=== PATIENT | female | born 1960 | race Hispanic/Latino ===

== ENCOUNTER 2019-01-09 08:11 | Emergency (ER) | payer BC ==
[2019-01-09 09:06] LABS: Urine Blood NEGATIVE (NEG); Urine Glucose NEGATIVE (NEG); Urine Protein NEGATIVE (NEG); Urine Specific Gravity 1.015 (1.005-1.030); Urine pH 5.5 (5.0-7.0)
[2019-01-09 09:19] LABS: Absolute Lymphocytes (CBC) 1.6 K/uL (0.7-4.9); Basophils % 0.6 % (0-1.3); Hematocrit 26.8 % (36.0-45.0); Lymphocytes % 17.3 % (15.3-44.8); MPV 7.6 fL (7.6-11.3); RBC Red Blood Cell Count 3.41 M/uL (3.86-4.86)
--- NOTE | 2019-01-09 09:25 | RAD REPORT ---
EXAM DESCRIPTION: RAD - Chest Single View - 01/09/2019 9:01 am CLINICAL HISTORY: CHEST PAIN Chest pain. COMPARISON: No comparisons FINDINGS: Portable technique limits examination quality. The lungs are grossly clear. The heart is normal in size. No displaced fractures. IMPRESSION: No acute intrathoracic process suspected.
[2019-01-09 09:34] LABS: ALT/SGPT 28 U/L (12-78); AST/SGOT 11 U/L (15-37); Albumin 3.2 g/dL (3.4-5.0); Alkaline Phosphatase 71 U/L (45-117); BUN Blood Urea Nitrogen 27 mg/dL (7-18); Bicarbonate 26 mmol/L (21-32); Bilirubin Direct 0.1 mg/dL (0-0.2); Bilirubin Total 0.5 mg/dL (0.2-1.0); Glucose Level 148 mg/dL (74-106); Magnesium 1.7 mg/dL (1.8-2.4); Protein, Total 7.8 g/dL (6.4-8.2); Sodium Level 140 mmol/L (136-145); Troponin (Emerg Dept Use Only) < 0.02 ng/mL (0.0-0.045)
[2019-01-09] MEDS ORDERED: MORPHINE 4 MG/ML SYR ONE (09:34)
[2019-01-09] MEDS ORDERED: ONDANSETRON 4 MG/2 ML VIAL ONE (09:34)
[2019-01-09 10:03] LABS: Protime INR 0.99
[2019-01-09] MEDS ORDERED: NA CHLORIDE 0.9% 1,000 ML ONE (10:21)
--- NOTE | 2019-01-09 10:34 | RAD REPORT ---
EXAM DESCRIPTION: CT - Chest For Pe Angio - 01/09/2019 10:12 am CLINICAL HISTORY: Chest pain COMPARISON: None. TECHNIQUE: Dynamically enhanced axial 3 mm thick images of the chest were obtained during administra tion of <100> mL Isovue 370 IV contrast. Coronal and oblique reconstruction images were generated and reviewed. Exam utilizes a protocol for optimal evaluation of pulmonary arterial tree. Maximum intensity projections 3D imaging was utilized All CT scans are performed using dose optimization technique as appropriate and may include automated exposure control or mA/KV adjustment according to patient size. FINDINGS: A pulmonary embolus is not seen. A thoracic aortic aneurysm is not noted. A pleural effusion is not seen. A pericardial effusion is not seen. A lung consolidation is not present. Several tiny subpleural lung nodules likely are benign. Small hiatal hernia. Fatty liver IMPRESSION: Negative for a pulmonary embolism.
--- NOTE | 2019-01-09 11:00 | ER ---
Nurse's Notes [facility] Name: Juana Restrepo Age: 58 yrs Sex: Female : 1960 Arrival Date: 01/09/2019 Time: 08:17 Bed 6 Private MD: Diagnosis: Headache;Anemia, unspecified;Chest pain, unspecified Presentation: 01/09 08:30 Presenting complaint: Patient states: i have had a headache for 2 days, today i feel tw2 dizzy and lightheaded and weak, i am having some nausea too. Transition of care: patient was not received from another setting of care. Onset of symptoms was January 09, 2019. Risk Assessment: Do you want to hurt yourself or someone else? Patient reports no desire to harm self or others. Initial Sepsis Screen: Does the patient meet any 2 criteria? No. Patient's initial sepsis screen is negative. Does the patient have a suspected source of infection? No. Patient's initial sepsis screen is negative. Care prior to arrival: None. 08:30 Method Of Arrival: Ambulatory tw2 08:30 Acuity: JAME 3 tw2 Triage Assessment: 08:31 Headache History: The patient has had previous headaches and this one is similar to tw2 previous episodes. General: Appears in no apparent distress. Behavior is calm, cooperative, appropriate for age. Pain: Complains of pain in top of head, forehead, right jew and left jew. Pain: Pain currently is 0 out of 10 on a pain scale. Pain began 2-3 days ago. Also complains of nausea. Neuro: Level of Consciousness is awake, alert, obeys commands. Historical: - Allergies: 08:33 No Known Allergies; tw2 - Home Meds: 08:33 Metformin Oral [Active]; Januvia oral oral [Active]; losartan oral oral [Active]; tw2 - PMHx: 08:33 Diabetes - NIDDM; Anemia; reflux; tw2 - PSHx: 08:33 Tummy tuck; Liposuction; tw2 - Immunization history:: Adult Immunizations. - Social history:: Smoking status: . - Ebola Screening: : No symptoms or risks identified at this time. Screenin:20 Abuse screen: Denies threats or abuse. Nutritional screening: No deficits noted. tw2 Tuberculosis screening: No symptoms or risk factors identified. Fall Risk None identified. Assessment: 08:22 General: Appears in no apparent distress. well groomed, Behavior is calm, cooperative, tw2 appropriate for age. Pain: Complains of pain in left jew and right jew and forehead and top of head. Neuro: Level of Consciousness is awake, alert, obeys commands, Oriented to person, place, time, situation, Reports dizziness, headache weakness. Cardiovascular: Heart tones S1 S2 Patient's skin is warm and dry. Respiratory: Airway is patent Respiratory effort is even, unlabored, Respiratory pattern is regular, symmetrical, Breath sounds are clear bilaterally. GI: Abdomen is flat, Bowel sounds present X 4 quads. Reports nausea. : No signs and/or symptoms were reported regarding the genitourinary system. EENT: No signs and/or symptoms were reported regarding the EENT system. Derm: No signs and/or symptoms reported regarding the dermatologic system. Musculoskeletal: Range of motion: intact in all extremities. 09:09 Reassessment: Patient appears in no apparent distress at this time. No changes from tw2 previously documented assessment. Patient and/or family updated on plan of care and expected duration. Pain level reassessed. Patient is alert, oriented x 3, equal unlabored respirations, skin warm/dry/pink. 10:00 Reassessment: Patient states that the morphine did not help her headache. Notified Albino Mensah NP. Patient was instructed not to get out of bed until CT scan results come back. 11:35 Reassessment: pt given PO water and ICE, pt tolerating PO well at this time. sg Vital Signs: 08:31 BP 139 / 63; Pulse 103; Resp 18; Temp 97.4(TE); Pulse Ox 100% on R/A; Weight 81.65 kg tw2 (R); Height 5 ft. 1 in. (154.94 cm); Pain 0/10; 09:09 BP 113 / 72; Pulse 85; Resp 17; Pulse Ox 100% on R/A; tw2 08:31 Body Mass Index 34.01 (81.65 kg, 154.94 cm) tw2 ED Course: 08:17 Patient arrived in ED. mr 08:20 Marce Robin RN is Primary Nurse. tw2 08:21 Arm band placed on. tw2 08:21 Bed in low position. Call light in reach. Adult w/ patient. tw2 08:22 Daniel Mensah, BK is PHCP. pm1 08:22 Markus Timmons MD is Attending Physician. pm1 08:31 Triage completed. tw2 08:58 XRAY Chest (1 view) In Process Unspecified. EDMS 09:04 Initial lab(s) drawn, by me, sent to lab. Inserted saline lock: 20 gauge in right ms antecubital area, using aseptic technique. Blood collected. 09:06 EKG done, by motorcycle service technician. reviewed by Markus Timmons MD. tc 10:[address] via stretcher. sw 10:13 CT Chest For PE Angio In Process Unspecified. EDMS 12:36 No provider procedures requiring assistance completed. IV discontinued, intact, ss bleeding controlled, No redness/swelling at site. Pressure dressing applied. Administered Medications: 09:35 Drug: Zofran 4 mg Route: IVP; Site: right antecubital; tw2 09:38 Drug: morphine 4 mg Route: IVP; Site: right antecubital; tw2 10:41 Drug: NS 0.9% 1000 ml Route: IV; Rate: 1000 ml; Site: right antecubital; aj1 11:28 Drug: Benadryl 12.5 mg Route: IVP; Site: right antecubital; sg 11:28 Drug: TORadol - Ketorolac 15 mg Route: IVP; Site: right antecubital; sg 11:30 Drug: Reglan 10 mg Route: IVP; Site: right antecubital; sg Outcome: 10:59 Discharge ordered by MD. pm1 12:36 Discharged to home ambulatory. ss 12:36 Condition: improved 12:36 Discharge instructions given to patient, family, Instructed on discharge instructions, follow up and referral plans. medication usage, Demonstrated understanding of instructions, follow-up care, medications, Prescriptions given X 1. 12:37 Patient left the ED. ss Signatures: Dispatcher [employer] EDLA Agustina Liao, RN RN aj1 Puma Andrade, RN RN sg Judie Cosme mr Major, Brittany Mell España, VAMSI RN ss Arminda Cottrell, business proposal rep EKG Ttc Gabi Brady Daniel Mensah, BK STEAM TURBINE OPERATOR pm1 Robin, Marce, RN RN tw2
--- NOTE | 2019-01-09 11:00 | EDPHYS ---
Physician Documentation [facility] Name: Juana Restrepo Age: 58 yrs Sex: Female : 1960 Arrival Date: 01/09/2019 Time: 08:17 Bed 6 Private MD: ED Physician Markus Timmons HPI: 01/09 08:45 This 58 yrs old Female presents to ER via Ambulatory with complaints of pm1 Headache. 08:45 The patient complains of pain to the forehead, left base of the skull and right base of pm1 the skull. The patient describes the headache as aching. Onset: The symptoms/episode began/occurred 2 day(s) ago. Associated signs and symptoms: Pertinent negatives: dizziness, fever, nausea, neck stiffness, rash, vomiting. Severity of symptoms: in the emergency department the pain has resolved. Headache History: The patient has had previous headaches and this one is similar to previous episodes. Patient had liposuction in [place] two days ago and she is concerned that she is anemic. Patient with a history of anemia and is currently taking iron supplements. She feels that the headache that has resolved on arrival to the ER is related to the anemia. She reports chest pain that feels like pulling and shortness of breath that started two days ago with the headache . Historical: - Allergies: 08:33 No Known Allergies; tw2 - Home Meds: 08:33 Metformin Oral [Active]; Januvia oral oral [Active]; losartan oral oral [Active]; tw2 - PMHx: 08:33 Diabetes - NIDDM; Anemia; reflux; tw2 - PSHx: 08:33 Tummy tuck; Liposuction; tw2 - Immunization history:: Adult Immunizations. - Social history:: Smoking status: . - Ebola Screening: : No symptoms or risks identified at this time. ROS: 08:45 Constitutional: Negative for fever, chills, and weight loss, Eyes: Negative for injury, pm1 pain, redness, and discharge, ENT: Negative for injury, pain, and discharge, Neck: Negative for injury, pain, and swelling, Abdomen/GI: Negative for abdominal pain, nausea, vomiting, diarrhea, and constipation. 08:45 Back: Negative for injury and pain, : Negative for injury, bleeding, discharge, and swelling, MS/Extremity: Negative for injury and deformity, Skin: Negative for injury, rash, and discoloration. 08:45 Cardiovascular: Positive for chest pain, Negative for edema, orthopnea, palpitations. 08:45 Respiratory: Positive for shortness of breath, Negative for cough, wheezing. 08:45 Neuro: Positive for headache, Negative for altered mental status, dizziness, numbness, tingling, weakness. Exam: 08:45 Constitutional: This is a well developed, well nourished patient who is awake, alert, pm1 and in no acute distress. Head/Face: Normocephalic, atraumatic. Eyes: Pupils equal round and reactive to light, extra-ocular motions intact. Lids and lashes normal. Conjunctiva and sclera are non-icteric and not injected. Cornea within normal limits. Periorbital areas with no swelling, redness, or edema. ENT: Nares patent. No nasal discharge, no septal abnormalities noted. Tympanic membranes are normal and external auditory canals are clear. Oropharynx with no redness, swelling, or masses, exudates, or evidence of obstruction, uvula midline. Mucous membranes moist. Neck: Trachea midline, no thyromegaly or masses palpated, and no cervical lymphadenopathy. Supple, full range of motion without nuchal rigidity, or vertebral point tenderness. No Meningismus. Chest/axilla: Normal chest wall appearance and motion. Nontender with no deformity. No lesions are appreciated. Cardiovascular: Regular rate and rhythm with a normal S1 and S2. No gallops, murmurs, or rubs. Normal PMI, no JVD. No pulse deficits. Respiratory: Lungs have equal breath sounds bilaterally, clear to auscultation and percussion. No rales, rhonchi or wheezes noted. No increased work of breathing, no retractions or nasal flaring. Abdomen/GI: Soft, non-tender, with normal bowel sounds. No distension or tympany. No guarding or rebound. No evidence of tenderness throughout. Back: No spinal tenderness. No costovertebral tenderness. Full range of motion. Skin: Warm, dry with normal turgor. Normal color with no rashes, no lesions, and no evidence of cellulitis. MS/ Extremity: Pulses equal, no cyanosis. Neurovascular intact. Full, normal range of motion. 08:45 Neuro: Orientation: is normal, Motor: is normal, moves all fours. 08:45 Neuro: Mentation: is normal, Cranial nerves: CN II- XII are normal as tested, pm1 Cerebellar function: normal finger to nose testing, Sensation: is normal, no obvious gross deficits. Vital Signs: 08:31 BP 139 / 63; Pulse 103; Resp 18; Temp 97.4(TE); Pulse Ox 100% on R/A; Weight 81.65 kg tw2 (R); Height 5 ft. 1 in. (154.94 cm); Pain 0/10; 09:09 BP 113 / 72; Pulse 85; Resp 17; Pulse Ox 100% on R/A; tw2 08:31 Body Mass Index 34.01 (81.65 kg, 154.94 cm) tw2 MDM: 08:26 Patient medically screened. pm1 10:58 Data reviewed: vital signs. Data interpreted: Pulse oximetry: on room air is 100 %. pm1 Interpretation: normal. 10:58 Counseling: I had a detailed discussion with the patient and/or guardian regarding: the pm1 historical points, exam findings, and any diagnostic results supporting the discharge/admit diagnosis, lab results, radiology results, the need for outpatient follow up, to return to the emergency department if symptoms worsen or persist or if there are any questions or concerns that arise at home. 01/09 08:39 Order name: Urine Dipstick--Ancillary (enter results); Complete Time: 09:24 bd 01/09 08:41 Order name: Basic Metabolic Panel; Complete Time: 09:56 pm1 01/09 08:41 Order name: CBC with Diff; Complete Time: 09:24 pm1 01/09 08:41 Order name: LFT's; Complete Time: 09:56 pm1 01/09 08:41 Order name: Magnesium; Complete Time: 09:56 pm1 01/09 08:41 Order name: PT-INR; Complete Time: 10:13 pm1 01/09 08:41 Order name: Troponin (emerg Dept Use Only); Complete Time: 09:56 pm1 01/09 08:41 Order name: XRAY Chest (1 view); Complete Time: 09:27 pm1 01/09 08:41 Order name: D-Dimer; Complete Time: 10:13 pm1 01/09 09:56 Order name: CT Chest For PE Angio; Complete Time: 10:41 pm1 01/09 08:41 Order name: EKG; Complete Time: 08:42 pm1 01/09 08:41 Order name: Cardiac monitoring; Complete Time: 08:46 pm1 01/09 08:41 Order name: EKG - Nurse/Tech; Complete Time: 08:55 pm1 01/09 08:41 Order name: IV Saline Lock; Complete Time: 09:04 pm1 01/09 08:41 Order name: Labs collected and sent; Complete Time: 09:04 pm1 01/09 08:41 Order name: O2 Per Protocol; Complete Time: 08:46 pm1 01/09 08:41 Order name: O2 Sat Monitoring; Complete Time: 08:46 pm1 Administered Medications: 09:35 Drug: Zofran 4 mg Route: IVP; Site: right antecubital; tw2 09:38 Drug: morphine 4 mg Route: IVP; Site: right antecubital; tw2 10:41 Drug: NS 0.9% 1000 ml Route: IV; Rate: 1000 ml; Site: right antecubital; aj1 11:28 Drug: Benadryl 12.5 mg Route: IVP; Site: right antecubital; sg 11:28 Drug: TORadol - Ketorolac 15 mg Route: IVP; Site: right antecubital; sg 11:30 Drug: Reglan 10 mg Route: IVP; Site: right antecubital; sg Disposition: 15:52 Co-signature as Attending Physician, Markus Timmons MD. rn Disposition: 01/09/19 10:59 Discharged to Home. Impression: Headache, Anemia, unspecified, Chest pain, unspecified. - Condition is Stable. - Discharge Instructions: Anemia, Nonspecific, Nonspecific Chest Pain, General Headache Without Cause. - Prescriptions for Fiorinal 50- 325-40 mg Oral Capsule - take 1 capsule by ORAL route every 4 hours As needed - not to exceed 6 capsules per day; 20 capsule. - Medication Reconciliation Form, Thank You Letter, Antibiotic Education, Prescription Opioid Use form. - Follow up: Emergency Department; When: As needed; Reason: Worsening of condition. Follow up: Private Physician; When: 2 - 3 days; Reason: Recheck today's complaints, Continuance of care, Re-evaluation by your physician. - Problem is new. - Symptoms have improved. Signatures: Dispatcher [employer] EDAgustina Rios RN RN aj1 Puma Andrade RN RN Markus Mcdaniel MD MD rn Smirch, Shelby, RN RN ss Daniel Mensah, BOTTOMING MACHINE OPERATOR BOTTOMING MACHINE OPERATOR pm1 Marce Robin RN RN tw2 Corrections: (The following items were deleted from the chart) 12:37 10:59 01/09/2019 10:59 Discharged to Home. Impression: Headache; Anemia, unspecified; ss Chest pain, unspecified. Condition is Stable. Forms are Medication Reconciliation Form, Thank You Letter, Antibiotic Education, Prescription Opioid Use. Follow up: Emergency Department; When: As needed; Reason: Worsening of condition. Follow up: Private Physician; When: 2 - 3 days; Reason: Recheck today's complaints, Continuance of care, Re-evaluation by your physician. Problem is new. Symptoms have improved. pm1
[2019-01-09] MEDS ORDERED: DIPHENHYDRAMINE 50 MG/ML VIAL ONE (11:21)
[2019-01-09] MEDS ORDERED: KETOROLAC 30 MG/ML INJ ONE (11:21)
[2019-01-09] MEDS ORDERED: METOCLOPRAMIDE 10 MG/2mL INJ ONE (11:21)
--- NOTE | 2019-01-09 11:38 | EKG ---
Test Date: 2019-01-09 Test Time: 08:54:49 Sausage Tier: NEGRITO MEASUREMENT RESULTS: Intervals: Rate: 84 ID: [id number] QRSD: 80 QT: 364 QTc: 430 [place]: P: 64 ID: [id number] QRS: 26 T: 47 INTERPRETIVE STATEMENTS: Normal sinus rhythm Normal ECG No previous ECG available for comparison Electronically Signed On 01-09-19 11:37:04 CDT by Manuel Dasilva
[2019-01-09 13:09] VITALS: TEMP 97.4; O2SAT 100
[2019-01-09 13:10] VITALS: BP 113/72
== END 2019-01-09 12:37 | disposition home or self-care (01) ==
LOC: ER 08:11
DX: D64.9 Anemia, unspecified (principal); R07.9 Chest pain, unspecified
CPT/HCPCS: 93005; 85025; 80048; 36415; 83735; 85610; 85379; 80076; 81003; 84484; 71275; 71045; 96375; 96374; 99284; Q9967; J2765; J1200; J7030; J2405

== ENCOUNTER 2020-07-02 09:11 | Inpatient (IN) | payer BC, SELFPAY ==
--- NOTE | 2020-07-02 11:53 | RAD REPORT ---
EXAM DESCRIPTION: RAD - Chest Single View - 07/02/2020 10:59 am CLINICAL HISTORY: COVID +, low O2;Cough COMPARISON: December 2008 TECHNIQUE: AP portable chest image was obtained 07/02/2020 10:59 am . FINDINGS: Lung volumes are low. Prominent airspace opacification is present in the lateral right upp er lobe and mid and lower left lung field. Given the provided history this is most likely a mild to m oderate severity bilateral COVID-19 pneumonia. Heart and vasculature are normal. No measurable pleural effusion and no pneumothorax. No acute bony abnormality seen. No acute aortic findings suspected. IMPRESSION: Mild to moderate bilateral COVID-19 pneumonia.
[2020-07-02] MEDS ORDERED: ONDANSETRON 4 MG/2 ML VIAL ONE (12:02)
[2020-07-02] MEDS ORDERED: dexAMETHasone 10 MG/ML VIAL ONE (12:02)
[2020-07-02] MEDS ORDERED: NA CHLORIDE 0.9% 1,000 ML ONE (12:02)
[2020-07-02] MEDS ORDERED: KETOROLAC 30 MG/ML INJ ONE (12:02)
[2020-07-02 12:08] LABS: Absolute Lymphocytes (CBC) 0.8 K/uL (0.7-4.9); Basophils % 0.5 % (0-1.3); Hematocrit 29.3 % (36.0-45.0); Lymphocytes % 18.6 % (15.3-44.8); MPV 7.8 fL (7.6-11.3); RBC Red Blood Cell Count 3.35 M/uL (3.86-4.86)
[2020-07-02 12:22] LABS: Potassium 4.2 mmol/L (3.5-5.1)
[2020-07-02] MEDS ORDERED: MORPHINE 4 MG/ML SYR ONE (13:01)
--- NOTE | 2020-07-02 15:06 | P.HP ---
Certification for Inpatient With expected LOS: >2 Midnights Patient will require the following post-hospital care: None Practitioner: I am a practitioner with admitting privileges, knowledge of patient current condition, hospital course, and medical plan of care. Services: Services provided to patient in accordance with Admission requirements found in Title 42 Section 412.3 of the Code of Federal Regulations Patient History Date of Service: 07/02/20 Reason for admission: COVID 19 disease, resp failure, generalized fatigue. History of Present Illness: 59 y o female pt with hx of COVID 19 disease diagnosed 5 dys ago who came back to the ED for evaluation due to worsening sob and generalized weakness. she had c/o bodyaches and chst discomfort. she denied any diarrhea, fever, chills, rigor, n/v but she feels very poor. CXR done in the ED showed viral pneumonia pattern with patchy opacifications on all lung harevy. she was started on supplemental oxygen and was asked to be admitted on observation for her covid 19 disease status. Allergies No Known Allergies Allergy (Verified 07/02/20 15:23) Home medications list reviewed: Yes - Past Medical/Surgical History Diabetic: Yes Review of Systems General: Weakness, Malaise Eyes: Unremarkable ENT: Unremarkable Respiratory: Cough, Shortness of Breath, Unremarkable Cardiovascular: Unremarkable Gastrointestinal: Unremarkable Musculoskeletal: Unremarkable Integumentary: Unremarkable Neurological: Unremarkable Physical Examination - Physical Exam General: Alert, Oriented x3, Cooperative HEENT: Atraumatic, Normocephalic Neck: Supple Respiratory: Diminished Cardiovascular: Regular rate/rhythm, Normal S1 S2 Gastrointestinal: Soft and benign Neurological: Normal speech, Normal strength at 5/5 x4 extr, Cranial nerves 3-12 intact - Studies Laboratory Data (last 24 hrs) 07/02/20 11:47: Sodium 132 L, Potassium 4.2, BUN 22 H, Creatinine 1.39 H, Glucose 239 H 07/02/20 11:47: WBC 4.50, Hgb 9.8 L, Hct 29.3 L, Plt Count 252 Assessment and Plan - Plan 1. COVID 19 disease- Imaging and clinical state depicts worsening covid 19 disease. we will start dexamethasone and inhalation therapy with duonebs. we will also start Vit C and zinc therapy. we will continue prn tylenol for pain control. 2.Diabetes type 2- we will continue SSI and monitor blood glucose ACHS we will continue carb restricted diet. 3. Elevated D dimer- no evidence of Pulm emboli on CTA pulm. we will continue lovenox for DVT therapy for now. 4.Elevated creatinine- deemed due to covid 19 disease affecting kidney function. we will monitor her renal function and avoid nephrotoxins. 5. Hyponatremia-Mild at 132. we will continue routine monitoring. deemed due to her pulm infection. Discharge Plan: Home - Advance Directives Does patient have a Living Will: No Does patient have a Durable POA for Healthcare: No
--- NOTE | 2020-07-02 15:20 | ER ---
Nurse's Notes [facility] Name: Juana Restrepo Age: 59 yrs Sex: Female : 1960 Arrival Date: 07/02/2020 Time: 09:19 Bed 19 Private MD: Diagnosis: Coronavirus infection, unspecified;Hypoxia Presentation: 07/02 10:15 Chief complaint: Patient states: PERSON, fatigue and low O2 since being diagnosed with ss COVID 2 weeks ago. Coronavirus screen: Client denies travel out of the [place] in the last 14 days. Ebola Screen: Patient denies exposure to infectious person. Patient denies travel to an Ebola-affected area in the 21 days before illness onset. Initial Sepsis Screen: Does the patient meet any 2 criteria? No. Patient's initial sepsis screen is negative. Does the patient have a suspected source of infection? No. Patient's initial sepsis screen is negative. Risk Assessment: Do you want to hurt yourself or someone else? Patient reports no desire to harm self or others. Onset of symptoms was June 21, 2020. 10:15 Method Of Arrival: Wheelchair ss 10:15 Acuity: JAME 3 ss Historical: - Allergies: 10:19 No Known Allergies; ss - PMHx: 10:19 Anemia; Diabetes - NIDDM; reflux; ss - Immunization history:: Adult Immunizations up to date. - Social history:: Smoking status: Patient denies any tobacco usage or history of. Screenin:17 Abuse screen: Denies threats or abuse. Denies injuries from another. Nutritional hb screening: No deficits noted. Tuberculosis screening: No symptoms or risk factors identified. Fall Risk None identified. Assessment: 12:17 General: Appears in no apparent distress. uncomfortable, Behavior is calm, cooperative. hb Pain: Pain currently is 8 out of 10 on a pain scale. Neuro: Level of Consciousness is awake, alert, obeys commands, Oriented to person, place, time, situation. Cardiovascular: Patient's skin is warm and dry. Respiratory: Respiratory effort is even, unlabored, Respiratory pattern is regular, symmetrical. GI: Reports nausea. : No signs and/or symptoms were reported regarding the genitourinary system. EENT: No signs and/or symptoms were reported regarding the EENT system. Derm: Skin is pink, warm \T\ dry. Musculoskeletal: Reports body aches, headache. 13:45 Reassessment: Patient appears in no apparent distress at this time. Patient and/or hb family updated on plan of care and expected duration. Pain level reassessed. Patient is alert, oriented x 3, equal unlabored respirations, skin warm/dry/pink. 14:46 Reassessment: Patient appears in no apparent distress at this time. Patient and/or hb family updated on plan of care and expected duration. Pain level reassessed. Patient is alert, oriented x 3, equal unlabored respirations, skin warm/dry/pink. 15:49 Reassessment: Patient appears in no apparent distress at this time. Patient and/or hb family updated on plan of care and expected duration. Pain level reassessed. Patient is alert, oriented x 3, equal unlabored respirations, skin warm/dry/pink. Vital Signs: 10:15 BP 118 / 69; Pulse 91; Resp 16; Temp 99.2; Pulse Ox 93% on R/A; Weight 90.26 kg; Height ss 5 ft. 0 in. (152.40 cm); Pain 8/10; 12:00 BP 108 / 68; Pulse 94; Resp 17; Pulse Ox 91% on R/A; hb 14:46 BP 103 / 52; Pulse 86; Resp 15; Pulse Ox 85% on R/A; hb 15:47 BP 106 / 55; Pulse 85; Resp 17; Pulse Ox 97% on 2 lpm NC; hb 10:15 Body Mass Index 38.86 (90.26 kg, 152.40 cm) ED Course: 09:19 Patient arrived in ED. mr 10:18 Triage completed. ss 10:19 Arm band placed on left wrist. ss 10:26 Lb Lewis PA is PHCP. jmm 10:26 Markus Timmons MD is Attending Physician. jmm 10:57 XRAY Chest (1 view) In Process Unspecified. EDMS 11:13 Haritha Antoine, VAMSI is Primary Nurse. hb 11:44 Inserted saline lock: 20 gauge in right antecubital area, using aseptic technique. hb Blood collected. 12:17 Patient has correct armband on for positive identification. Bed in low position. Call hb light in reach. 12:51 CBC with Diff Sent. hb 15:15 CT Chest For PE Angio In Process Unspecified. EDMS 15:15 CT Abd/Pelvis - IV Contrast Only In Process Unspecified. EDMS 15:19 Parth Milan MD is Hospitalizing Provider. [facility] 15:50 No provider procedures requiring assistance completed. Patient admitted, IV remains in hb place. Administered Medications: 11:45 Drug: NS 0.9% 1000 ml Route: IV; Rate: 1 bolus; Site: right antecubital; hb 12:45 Follow up: Response: No adverse reaction; IV Status: Completed infusion; IV Intake: hb 1000ml 11:45 Drug: Zofran (Ondansetron) 4 mg Route: IVP; Site: right antecubital; hb 12:20 Follow up: Response: No adverse reaction hb 11:45 Drug: Ketorolac 15 mg Route: IVP; Site: right antecubital; hb 12:45 Follow up: Response: No adverse reaction hb 11:45 Drug: Decadron - Dexamethasone 10 mg Route: IVP; Site: right antecubital; hb 12:45 Follow up: Response: No adverse reaction hb 12:44 Drug: morphine 4 mg Route: IVP; Site: right antecubital; hb 13:39 Follow up: Response: No adverse reaction hb Intake: 12:45 IV: 1000ml; Total: 1000ml. hb Outcome: 15:20 Decision to Hospitalize by Provider. [facility] 15:50 Admitted to Tele accompanied by tech, room 401, with oxygen, with chart, Report called hb to Je AGUSTIN 15:50 Condition: stable 15:50 Instructed on the need for admit, Demonstrated understanding of instructions. 16:11 Patient left the ED. tr6 Signatures: Dispatcher [employer] EDMS Lb Lewis PA PA jmm Rivera, Mary mr Mell Diez, Haritha Ortiz RN, RN RN Arminda Gaston RN RN tr6 Corrections: (The following items were deleted from the chart) 14:55 14:46 BP 103 / 52; Pulse 86bpm; Resp 15bpm; Pulse Ox 86% RA; hb hb
--- NOTE | 2020-07-02 15:20 | EDPHYS ---
Physician Documentation [facility] Name: Juana Restrepo Age: 59 yrs Sex: Female : 1960 Arrival Date: 07/02/2020 Time: 09:19 Bed 19 Private MD: ED Physician Markus Timmons HPI: 07/02 10:27 This 59 yrs old Female presents to ER via Wheelchair with complaints of jmm COVID+, Low O2. 10:27 The patient or guardian reports cough. Onset: The symptoms/episode began/occurred jmm gradually, 4 day(s) ago. Modifying factors: The symptoms are alleviated by nothing. the symptoms are aggravated by nothing. Associated signs and symptoms: Pertinent positives: cough, shortness of breath, body aches. This is a 59 year old female with a history of anemia, DM that presents to the ED with complaints of cough, shortness of breath, body aches beginning approx 4 days ago. States she is feeling more short of breath. . Historical: - Allergies: 10:19 No Known Allergies; ss - PMHx: 10:19 Anemia; Diabetes - NIDDM; reflux; ss - Immunization history:: Adult Immunizations up to date. - Social history:: Smoking status: Patient denies any tobacco usage or history of. ROS: 10:27 Constitutional: Positive for body aches, fever. jmm 10:27 Cardiovascular: Positive for 10:27 Respiratory: Positive for cough, shortness of breath. 10:27 Abdomen/GI: Positive for abdominal pain, nausea, vomiting, diarrhea. 10:27 All other systems are negative. Exam: 10:27 Constitutional: This is a well developed, well nourished patient who is awake, alert, jmm and in no acute distress. Head/Face: atraumatic. Eyes: EOMI, no conjunctival erythema appreciated ENT: Moist Mucus Membranes Neck: Trachea midline, Supple Chest/axilla: Normal chest wall appearance and motion. Cardiovascular: Regular rate and rhythm. No edema appreciated Respiratory: Normal respirations, no respiratory distress appreciated Abdomen/GI: Non distended, soft Back: Normal ROM Skin: General appearance color normal MS/ Extremity: Moves all extremities, no obvious deformities appreciated, no edema noted to the lower extremities Neuro: Awake and alert, normal gait Psych: Behavior is normal, Mood is normal, Patient is cooperative and pleasant Vital Signs: 10:15 BP 118 / 69; Pulse 91; Resp 16; Temp 99.2; Pulse Ox 93% on R/A; Weight 90.26 kg; Height ss 5 ft. 0 in. (152.40 cm); Pain 8/10; 12:00 BP 108 / 68; Pulse 94; Resp 17; Pulse Ox 91% on R/A; hb 14:46 BP 103 / 52; Pulse 86; Resp 15; Pulse Ox 85% on R/A; hb 15:47 BP 106 / 55; Pulse 85; Resp 17; Pulse Ox 97% on 2 lpm NC; hb 10:15 Body Mass Index 38.86 (90.26 kg, 152.40 cm) ss MDM: 11:25 Patient medically screened. [facility] 15:18 Data reviewed: vital signs, nurses notes. Counseling: I had a detailed discussion with charlene the patient and/or guardian regarding: the historical points, exam findings, and any diagnostic results supporting the discharge/admit diagnosis, lab results, radiology results, the need for further work-up and treatment in the hospital. ED course: I discussed the patient with Dr. Porter whom accepted the patient for admission. . 07/02 11:37 Order name: CBC with Diff [facility] 07/02 11:37 Order name: BMP; Complete Time: 12:27 [facility] 07/02 11:37 Order name: CBC with Automated Diff; Complete Time: 12:22 [facility] 07/02 13:23 Order name: D-Dimer; Complete Time: 14:49 [facility] 07/02 15:10 Order name: Basic Metabolic Panel [facility] 07/02 15:10 Order name: Basic Metabolic Panel [facility] 07/02 10:26 Order name: XRAY Chest (1 view); Complete Time: 12:05 07/02 14:50 Order name: CT Chest For PE Angio; Complete Time: 15:43 [facility] 07/02 14:50 Order name: CT Abd/Pelvis - IV Contrast Only; Complete Time: 15:43 [facility] 07/02 15:10 Order name: CBC with Automated Diff [facility] 07/02 15:10 Order name: CBC with Automated Diff [facility] 07/02 11:37 Order name: Saline Lock; Complete Time: 12:17 [facility] 07/02 15:10 Order name: Consistent Carb (ADA) 2000 Arvind EDNY Administered Medications: 11:45 Drug: NS 0.9% 1000 ml Route: IV; Rate: 1 bolus; Site: right antecubital; hb 12:45 Follow up: Response: No adverse reaction; IV Status: Completed infusion; IV Intake: hb 1000ml 11:45 Drug: Zofran (Ondansetron) 4 mg Route: IVP; Site: right antecubital; hb 12:20 Follow up: Response: No adverse reaction hb 11:45 Drug: Ketorolac 15 mg Route: IVP; Site: right antecubital; hb 12:45 Follow up: Response: No adverse reaction hb 11:45 Drug: Decadron - Dexamethasone 10 mg Route: IVP; Site: right antecubital; hb 12:45 Follow up: Response: No adverse reaction hb 12:44 Drug: morphine 4 mg Route: IVP; Site: right antecubital; hb 13:39 Follow up: Response: No adverse reaction hb Disposition: 17:23 Co-signature as Attending Physician, Markus Timmons MD. rn Disposition: 07/02/20 15:20 Hospitalization ordered by Parth Milan for Observation. Preliminary diagnosis are Coronavirus infection, unspecified, Hypoxia. - Bed requested for Telemetry/MedSurg (observation). - Status is Observation. tr6 - Condition is Stable. - Problem is new. - Symptoms are unchanged. Signatures: Dispatcher [employer] EDNY Lb Lewis PA PA [facility] Markus Timmons MD MD rn Smirch, Shelby, RN RN Haritha Antoine RN RN Je Diaz RN RN [facility] Arminda Gaston, RN RN tr6 Corrections: (The following items were deleted from the chart) 15:24 15:20 Hospitalization Ordered by Parth Milan MD for Observation. Preliminary ja1 diagnosis is Coronavirus infection, unspecified; Hypoxia. Bed requested for Telemetry/MedSurg (observation). Status is Observation. Condition is Stable. Problem is new. Symptoms are unchanged. charlene 16:11 15:24 07/02/2020 15:20 Hospitalization Ordered by Parth Milan MD for Observation. tr6 Preliminary diagnosis is Coronavirus infection, unspecified; Hypoxia. Bed requested for Telemetry/MedSurg (observation). Status is Observation. Condition is Stable. Problem is new. Symptoms are unchanged. ja1
--- NOTE | 2020-07-02 15:39 | RAD REPORT ---
EXAM DESCRIPTION: CT - Chest For Pe Angio - 07/02/2020 3:15 pm CLINICAL HISTORY: Chest pain. shortness of breath COMPARISON: Chest For Pe Angio dated 01/09/2019 TECHNIQUE: CT angiogram of the pulmonary arteries was performed with MIP. All CT scans are performed using dose optimization technique as appropriate and may include automated exposure control or mA/KV adjustment according to patient size. FINDINGS: No evidence of pulmonary thromboembolism. No acute aortic finding demonstrated. Extensive interstitial and alveolar lung opacities are present bilaterally, greatest in the upper lob es, likely representing pneumonia. No significant pericardial or pleural fluid. No concerning bony finding. Moderate axial hiatal hernia. IMPRESSION: No evidence of pulmonary thromboembolism. Extensive interstitial and alveolar lung opacities bilaterally compatible with COVID-19 infection.
--- NOTE | 2020-07-02 15:41 | RAD REPORT ---
EXAM DESCRIPTION: CTAbdomen Pelvis W Contrast - 07/02/2020 3:15 pm CLINICAL HISTORY: Abdominal pain. abdominal pain, flank pain COMPARISON: No comparisons TECHNIQUE: Biphasic CT imaging of the abdomen and pelvis was performed with 100 ml non-ionic IV cont rast. All CT scans are performed using dose optimization technique as appropriate and may include automated exposure control or mA/KV adjustment according to patient size. FINDINGS: Mild moderate bibasilar lung opacities are present. Diffuse fatty liver is seen. Moderate axial hiatal hernia. The spleen, pancreas, adrenal glands are w ithin normal limits. Nonobstructing bilateral renal calculi. No bowel obstruction, free air, free fluid or abscess. Moderate stool is retained in the colon. The a ppendix is normal. No evidence of significant lymphadenopathy. No suspicious bony findings. IMPRESSION: Bilateral nephrolithiasis without hydronephrosis. Diffuse fatty liver. Moderate hiatal hernia.
[2020-07-02] MEDS: NA CHLORIDE 0.9% 1,000 ML IV SCH (16:00)
[2020-07-02] MEDS: INSULIN -REGULAR HUMAN 50 UNIT/0.5 ML ML SQ SCH ×2 (16:30→21:31)
[2020-07-02] MEDS: IPRATROPIUM BROM 0.5MG/2.5ML NEB SCH (20:10)
[2020-07-02] MEDS: ACETAMINOPHEN 500 MG TAB PO PRN (21:48)
[2020-07-03] MEDS ORDERED: HYDROCODONE/APAP 5/325 MG TAB PO ONE (00:49)
[2020-07-03] MEDS: IPRATROPIUM BROM 0.5MG/2.5ML NEB SCH ×4 (01:40→19:40)
[2020-07-03 05:17] LABS: Absolute Lymphocytes (CBC) 1.1 K/uL (0.7-4.9); Basophils % 1.3 % (0-1.3); Hematocrit 28.6 % (36.0-45.0); Lymphocytes % 25.2 % (15.3-44.8); MPV 7.8 fL (7.6-11.3); Potassium 4.8 mmol/L (3.5-5.1); RBC Red Blood Cell Count 3.25 M/uL (3.86-4.86)
[2020-07-03] MEDS: NA CHLORIDE 0.9% 1,000 ML IV SCH ×4 (06:44→22:00)
[2020-07-03] MEDS: ALBUTEROL 2.5 MG/3 ML NEB SOL NEB PRN ×2 (07:35→13:48)
[2020-07-03] MEDS: ZINC SULFATE 220 MG CAP PO SCH (07:51)
[2020-07-03] MEDS: INSULIN -REGULAR HUMAN 50 UNIT/0.5 ML ML SQ SCH ×4 (07:55→20:38)
[2020-07-03] MEDS ORDERED: ENOXAPARIN 40 MG/0.4 ML SQ SCH (09:00)
[2020-07-03] MEDS ORDERED: dexAMETHasone 10 MG/ML VIAL IV SCH (09:00)
[2020-07-03] MEDS ORDERED: ASCORBIC ACID 500 MG TABLET PO SCH (09:00)
[2020-07-03] MEDS ORDERED: HYDROCODONE/APAP 10/325 TAB PO PRN (10:12)
[2020-07-03] MEDS: LORAZEPAM 0.5 MG TABLET PO PRN ×2 (10:39→18:43)
[2020-07-04] MEDS ORDERED: LORazepam 2 MG/ML VIAL IV ONE ×2 (00:04→01:34)
[2020-07-04] MEDS: LORazepam 2 MG/ML VIAL ONE ×2 (00:25→03:30)
[2020-07-04] MEDS ORDERED: BENZONATATE 100 MG CAP PO PRN (00:37)
[2020-07-04] MEDS ORDERED: MORPHINE 2 MG/ML SYR IV PRN (00:37)
[2020-07-04] MEDS ORDERED: MELATONIN 5 MG TABLET PO PRN (00:37)
[2020-07-04] MEDS ORDERED: NA CHLORIDE 0.9% 250 ML IV PRN (02:23)
[2020-07-04] MEDS ORDERED: HALOPERIDOL LACT 5 MG/ML INJ IV PRN (02:23)
[2020-07-04] MEDS ORDERED: MIDAZOLAM HCL 2 MG/2 ML INJ IV PRN (02:23)
[2020-07-04] MEDS ORDERED: RSI MEDICATION KIT IV ONE (02:30)
[2020-07-04] MEDS ORDERED: NA CHLORIDE 0.9% 1,000 ML ONE (02:33)
[2020-07-04] MEDS ORDERED: propofoL 1,000 MG/100 ML VIAL IV ONE (02:34)
[2020-07-04] MEDS ORDERED: MIDAZOLAM HCL 2 MG/2 ML INJ ONE (02:47)
[2020-07-04 03:00] LABS: Absolute Lymphocytes (CBC) 1.1 K/uL (0.7-4.9); Basophils % 0.8 % (0-1.3); Hematocrit 28.9 % (36.0-45.0); Lymphocytes % 11.4 % (15.3-44.8); MPV 9.1 fL (7.6-11.3)
[2020-07-04] MEDS: IPRATROPIUM BROM 0.5MG/2.5ML NEB SCH ×2 (03:00→07:40)
[2020-07-04 03:13] LABS: Albumin 2.4 g/dL (3.4-5.0); Bilirubin Total 0.2 mg/dL (0.2-1.0); Ferritin 534.7 ng/mL (8-388); Potassium 4.6 mmol/L (3.5-5.1); Protein, Total 6.8 g/dL (6.4-8.2)
[2020-07-04] MEDS: FENTANYL CITR 100 MCG/2 ML IV PRN ×2 (03:30→07:46)
[2020-07-04 04:09] LABS: Blood Morphology Comment NOT SEEN (NOT SEEN); Platelet Estimate ADEQ
[2020-07-04 04:14] LABS: Arterial Blood Carboxyhemoglob 0.9 % (0-1.5); Blood Gas Oxyhemoglobin 69.8 % (94-97); Blood O2 Saturation 71.2 % (92-98.5)
[2020-07-04 04:18] LABS: Arterial Blood Carboxyhemoglob 0.9 % (0-1.5); Blood Gas Oxyhemoglobin 76.4 % (94-97); Blood O2 Saturation 77.8 % (92-98.5)
[2020-07-04] MEDS: propofoL 1,000 MG/100 ML VIAL IV PRN ×6 (05:09→23:39)
[2020-07-04] MEDS ORDERED: LORazepam 2 MG/ML VIAL ONE (05:54)
[2020-07-04] MEDS ORDERED: CISATRACURIUM BESYLATE 40 MG in NA CHLORIDE 0.9% 80 ML IV PRN (05:57)
[2020-07-04] MEDS ORDERED: CISATRACURIUM INJECTION 2 MG/ML (10 ML Vial) IV ONE ×2 (06:15→06:21)
[2020-07-04] MEDS ORDERED: NA CHLORIDE 0.9% 100 ML ONE (06:22)
[2020-07-04] MEDS: INSULIN -REGULAR HUMAN 50 UNIT/0.5 ML ML SQ SCH ×4 (07:30→21:14)
[2020-07-04] MEDS ORDERED: METHYLPREDNISOLONE 125 MG INJ IV SCH (08:07)
[2020-07-04] MEDS ORDERED: GLUCAGON 1 MG/VIAL IM PRN (08:12)
[2020-07-04] MEDS ORDERED: D50W 25 GM/50 ML SYRINGE IV PRN (08:12)
--- NOTE | 2020-07-04 08:14 | P.CNS ---
Date of Consult: 07/04/20 Reason for Consult: Respiratory failure Chief Complaint: COVID 19 disease, resp failure, generalized fatigue. History of Present Illness: Patient is 59 years of age and was diagnosed with tian virus about 5 days ago presented with acute respiratory failure was intubated to yesterday as bilateral complete opacification of her lungs currently very hypoxic on propofol not cooperative with treatment up on the floor Allergies No Known Allergies Allergy (Verified 07/02/20 15:23) Home Medications: Escitalopram [Lexapro] 10 mg PO DAILY 07/02/20 Losartan Potassium 100 mg PO DAILY 07/02/20 Phentermine HCl 37.5 mg PO DAILY 07/02/20 Simvastatin 20 mg PO DAILY 07/02/20 Topiramate [Topamax] 25 mg PO DAILY 07/02/20 - Past Medical/Surgical History Diabetic: Yes -: GERD -: DM -: ANEMIA - Social History Alcohol use: Yes CD- Drugs: No Caffeine use: No Place of Residence: Home Review of Systems is unable to be obtained Physical Examination Temp Pulse Resp BP Pulse Ox 97.2 F 93 H 30 H 100/55 L 70 L 07/03/20 20:00 07/04/20 06:45 07/04/20 07:46 07/04/20 06:45 07/04/20 07:46 - Problems (1) Acute respiratory failure due to severe acute respiratory syndrome coronavirus 2 (SARS-CoV-2) infection Current Visit: Yes Status: Acute Plan: Patient is 59 years of age admitted with acute respiratory failure from tian virus she has extensive bilateral opacification recommend a very high doses of steroids multi vitamin supplementation full-dose anticoagulation add aspirin ventilator has been adjusted patient is on assist-control change to assist- control of 20 and peep of 15 discuss with the nursing staff all her labs CT scans reviewed
[2020-07-04] MEDS: ACETAMINOPHEN 500 MG TAB PO PRN (08:39)
[2020-07-04] MEDS: ASCORBIC ACID 500 MG TABLET PO SCH ×3 (08:40→20:53)
[2020-07-04] MEDS: VITAMIN D 1000 UNIT TAB PO SCH (08:40)
[2020-07-04] MEDS: ZINC SULFATE 220 MG CAP PO SCH (08:40)
[2020-07-04] MEDS: THIAMINE 200 MG/2 ML INJ IVP SCH ×2 (08:41→20:52)
[2020-07-04] MEDS: ASPIRIN EC 81 MG TAB PO SCH (08:42)
[2020-07-04] MEDS: FAMOTIDINE 20 MG/2 ML VIAL IV SCH ×2 (08:42→20:52)
[2020-07-04] MEDS: ENOXAPARIN 100 MG/ML SYR SQ SCH ×2 (08:42→20:53)
[2020-07-04] MEDS: Remdesivir 200 MG in NA CHLORIDE 0.9% 250 ML IV ONE ×2 (08:44→09:08)
[2020-07-04] MEDS ORDERED: ZINC SULFATE 220 MG CAP PO SCH (09:00)
[2020-07-04] MEDS ORDERED: FAMOTIDINE 20 MG TAB PO SCH (09:00)
[2020-07-04] MEDS ORDERED: THIAMINE HCL 100 MG TABLET PO SCH (09:00)
--- NOTE | 2020-07-04 09:04 | P.PN ---
Subjective Date of Service: 07/03/20 Had a long talk with patient. She is nervous about wearing the BiPAP as she is claustrophobic. I did encourage her to try to use it. We do not have any additional masks to assist her with her claustrophobia. She did get the vaccine 3 weeks ago. She just got the 1st dose. Over the last week she has been getting sick but she has been trying to treat herself with her 's help at home. She does not really want be on the ventilator but she does say if her condition worsens she is agreeable. Review of Systems 10-point ROS is otherwise unremarkable Physical Examination - Vital Signs Temperature: 102.7 F Blood Pressure: 100/55 Pulse: 93 Respirations: 30 Pulse Ox (%): 70 - Physical Exam General: Alert, In no apparent distress, Oriented x3 Respiratory: Diminished, Crackles/rales, Expiratory wheezes Cardiovascular: Regular rate/rhythm, Normal S1 S2, No murmurs Gastrointestinal: Normal bowel sounds, Soft and benign, Non-distended, No tenderness Musculoskeletal: No clubbing, No swelling, No tenderness Neurological: Normal strength at 5/5 x4 extr, Sensation intact, Cranial nerves 3-12 intact - Studies Medications List Reviewed: Yes Assessment & Plan - Problems (Diagnosis) (1) Acute respiratory failure due to severe acute respiratory syndrome coronavirus 2 (SARS-CoV-2) infection Current Visit: Yes Status: Acute (2) DM2 (diabetes mellitus, type 2) Current Visit: Yes Status: Acute - Plan 1. Continue with IV steroids; will start antiviral therapy 2. Monitor inflammatory markers 3. Repeat chest x-ray if symptoms are progressively worsening 4. O2 per protocol 5. Pulmonary consultation 6. Continue with albuterol inhaler therapy; also supportive care 7. Monitor LFTs 8. GI and DVT prophylaxis Discharge Plan: Home Plan to discharge in: Greater than 2 days - Advance Directives Does patient have a Living Will: No Does patient have a Durable POA for Healthcare: No - Code Status/Comfort Care Code Status Assessed: Yes Code Status: Full Code Critical Care: No Time Spent Managing PTS Care (In Minutes): 45
[2020-07-04] MEDS: CISATRACURIUM BESYLATE 80 MG in NA CHLORIDE 0.9% 160 ML IV PRN ×4 (09:08→23:39)
[2020-07-04] MEDS: INSULIN 70/30 100 UNITS/ML SQ SCH ×2 (09:12→17:20)
[2020-07-04 09:37] LABS: Arterial Blood Carboxyhemoglob 0.9 % (0-1.5); Blood Gas Oxyhemoglobin 76.4 % (94-97)
--- NOTE | 2020-07-04 11:08 | RAD REPORT ---
EXAM DESCRIPTION: RAD - Chest Single View - 07/04/2020 3:03 am CLINICAL HISTORY: Endotracheal tube placement COMPARISON: None. TECHNIQUE: Chest 1 View AP FINDINGS: Trachea midline. Cardiac silhouette obscured by surrounding opacities. Marked dense diffuse bilateral lung opacities. Bilateral pleural effusions cannot be ruled out. No pneumothorax is grossly seen. No fracture. ETT tip in expected location of distal trachea. NGT courses towards left upper abdomen with tip not imaged. IMPRESSION: 1. Marked dense diffuse bilateral lung opacities. Causes include pulmonary edema, subsegmental atelectasis, scar/fibrosis, atypical infection, drug miroslava ction, pulmonary hemorrhage, ARDS, hypersensitivity pneumonitis, and other etiologies. 2. ETT and NGT in place. Electronically signed by: Gaston Rodriguez MD 07/04/2020 3:22 AM CDT Due to temporary technical issues with the PACS/Fluency reporting system, reports are being signed by the in house radiologist without review as a courtesy to ensure prompt reporting. The interpreting r adiologist is fully responsible for the content of the report.
[2020-07-04] MEDS: NA CHLORIDE 0.9% IV SCH ×4 (11:13→23:23)
[2020-07-04] MEDS: IVERMECTIN 3 MG TABLET PO SCH (11:13)
[2020-07-04] MEDS: METHYLPRED NA SUC IV SCH ×4 (11:13→23:23)
[2020-07-04 11:41] LABS: Basophils % 0.9 % (0-1.3); Hematocrit 28.2 % (36.0-45.0); Lymphocytes % 12.2 % (15.3-44.8); MPV 7.8 fL (7.6-11.3); RBC Red Blood Cell Count 3.18 M/uL (3.86-4.86)
[2020-07-04 11:59] LABS: Magnesium 1.9 mg/dL (1.8-2.4); Potassium 4.5 mmol/L (3.5-5.1)
[2020-07-04] MEDS ORDERED: SUCCINYLCHOLINE 20 MG/ML (10 ML) IV ONE (13:52)
[2020-07-04] MEDS ORDERED: ETOMIDATE 20 MG/10 ML VIAL IV ONE (13:52)
[2020-07-04] MEDS ORDERED: VANCOMYCIN 1.25 GM in NA CHLORIDE 0.9% 250 ML IVPB SCH (15:00)
[2020-07-04] MEDS ORDERED: D50W 25 GM/50 ML VIAL IV PRN (15:00)
[2020-07-04] MEDS: VANCOMYCIN 1.75 GM in NA CHLORIDE 0.9% 500 ML IVPB SCH (16:30)
[2020-07-04] MEDS: PIPER/TAZO/NS 3.375gm 3.375 GM/100 ML BAG IVPB SCH (17:21)
[2020-07-04 19:12] LABS: Urine Appearance CLOUDY (Clear); Urine Bilirubin NEGATIVE (Negataive); Urine Blood 1+ (Negative); Urine Color YELLOW (Yellow); Urine Glucose 3+ (Negative); Urine Protein 1+ (Negative); Urine Specific Gravity 1.015 (1.005-1.030); Urine Urobilinogen 0.2 mg/dL (0.2-1.0); Urine pH 5.5 (5.0-7.0)
[2020-07-04 19:34] LABS: Urine Bacteria <20 /HPF (<20)
[2020-07-04 19:36] LABS: Urine Amorphous Sediment 3+ /HPF (NONE SEEN); Urine Mucus 3+ /HPF (NONE SEEN); Urine Urothelial Cells <5 /HPF (NONE SEEN)
[2020-07-04] MEDS: ATORVASTATIN 40 MG TAB PO SCH (20:53)
[2020-07-05] MEDS: PIPER/TAZO/NS 3.375gm 3.375 GM/100 ML BAG IVPB SCH ×3 (00:23→17:33)
[2020-07-05] MEDS: propofoL 1,000 MG/100 ML VIAL IV PRN ×4 (02:57→18:09)
[2020-07-05] MEDS: CISATRACURIUM BESYLATE 80 MG in NA CHLORIDE 0.9% 160 ML IV PRN ×3 (03:51→17:36)
[2020-07-05] MEDS: METHYLPRED NA SUC IV SCH ×3 (05:19→18:09)
[2020-07-05] MEDS: NA CHLORIDE 0.9% IV SCH ×3 (05:19→18:09)
[2020-07-05 06:21] LABS: Arterial Blood Carboxyhemoglob 0.8 % (0-1.5); Blood Gas Oxyhemoglobin 94.4 % (94-97); Blood O2 Saturation 96.5 % (92-98.5)
[2020-07-05 08:15] LABS: Absolute Lymphocytes (CBC) 0.9 K/uL (0.7-4.9); Basophils % 0.4 % (0-1.3); Hematocrit 27.6 % (36.0-45.0); Lymphocytes % 8.4 % (15.3-44.8); MPV 7.7 fL (7.6-11.3); RBC Red Blood Cell Count 3.07 M/uL (3.86-4.86)
[2020-07-05 08:30] LABS: Protime INR 1.12
--- NOTE | 2020-07-05 08:35 | RAD REPORT ---
EXAM DESCRIPTION: Abhilash Single View07/05/2020 6:00 am CLINICAL HISTORY: Shortness of breath COMPARISON: July 04, 2020 FINDINGS: Tip of an endotracheal tube at the level of the top of the aortic arch. NG tube in place. Mild improvement in extensive bilateral pulmonary opacities. IMPRESSION: Mild improvement in an extensive bilateral pneumonia
[2020-07-05] MEDS: INSULIN 70/30 100 UNITS/ML SQ SCH ×2 (08:38→17:17)
[2020-07-05] MEDS: Remdesivir 100 MG in NA CHLORIDE 0.9% 250 ML IV SCH (08:38)
[2020-07-05 09:05] LABS: Albumin 1.9 g/dL (3.4-5.0); Bilirubin Direct 0.2 mg/dL (0-0.2); Bilirubin Total 0.4 mg/dL (0.2-1.0); Ferritin 725.4 ng/mL (8-388); Phosphorus 3.3 mg/dL (2.5-4.9); Protein, Total 6.8 g/dL (6.4-8.2)
[2020-07-05] MEDS: INSULIN -REGULAR HUMAN 50 UNIT/0.5 ML ML SQ SCH ×3 (09:05→17:17)
[2020-07-05] MEDS: VITAMIN D 1000 UNIT TAB PO SCH (09:05)
[2020-07-05] MEDS: ASPIRIN EC 81 MG TAB PO SCH (09:05)
[2020-07-05 09:07] LABS: Magnesium 2.1 mg/dL (1.8-2.4); Potassium 5.2 mmol/L (3.5-5.1)
[2020-07-05] MEDS: ASCORBIC ACID 500 MG TABLET PO SCH ×3 (09:07→21:12)
[2020-07-05] MEDS: FAMOTIDINE 20 MG/2 ML VIAL IV SCH ×2 (09:12→21:12)
[2020-07-05] MEDS: ENOXAPARIN 100 MG/ML SYR SQ SCH ×2 (09:12→21:11)
[2020-07-05] MEDS: THIAMINE 200 MG/2 ML INJ IVP SCH ×2 (09:13→21:12)
[2020-07-05] MEDS: ZINC SULFATE 220 MG CAP PO SCH (09:13)
--- NOTE | 2020-07-05 11:26 | P.PN ---
Subjective Date of Service: 07/05/20 Chief Complaint: COVID 19 disease, resp failure, generalized fatigue. Oxygen requirements declining minimal improvement on the chest x-rays today as diffuse bilateral infiltrate Review of Systems is unable to be obtained Physical Examination - Vital Signs Temperature: 97.5 F Blood Pressure: 86/53 Pulse: 67 Respirations: 30 Pulse Ox (%): 96 - Studies Medications List Reviewed: Yes Assessment & Plan - Problems (Diagnosis) (1) Acute respiratory failure due to severe acute respiratory syndrome coronavirus 2 (SARS-CoV-2) infection Current Visit: Yes Status: Acute Plan: Respiratory failure. Continue titrating oxygen level down blood gases showing hypercapnia white count normal patient is on Zosyn while hyperkalemia continue to monitor chest x-rays lab work all reviewed Plan to discharge in: Greater than 2 days
--- NOTE | 2020-07-05 11:36 | P.PN ---
Subjective Date of Service: 07/05/20 Chief Complaint: COVID 19 disease, resp failure, generalized fatigue. Physical Examination - Vital Signs Temperature: 97.5 F Blood Pressure: 86/53 Pulse: 67 Respirations: 30 Pulse Ox (%): 96 - Studies Medications List Reviewed: Yes Assessment & Plan - Problems (Diagnosis) (1) Acute respiratory failure due to severe acute respiratory syndrome coronavirus 2 (SARS-CoV-2) infection Current Visit: Yes Status: Acute Plan: Patient is 59 years of age admitted with acute respiratory failure from tian virus she has extensive bilateral opacification recommend a very high doses of steroids multi vitamin supplementation full-dose anticoagulation add aspirin ventilator has been adjusted patient is on assist-control change to assist- control of 20 and peep of 15 discuss with the nursing staff all her labs CT scans reviewed
[2020-07-05 14:46] LABS: Arterial Blood Carboxyhemoglob 1.1 % (0-1.5); Blood O2 Saturation 94.6 % (92-98.5)
[2020-07-05] MEDS: GLUCERNA 1.5 CAL 1,000 ML BOT RTH SCH (16:40)
[2020-07-05] MEDS ORDERED: GLUCAGON 1 MG/VIAL IM PRN (18:47)
[2020-07-05] MEDS ORDERED: D50W 25 GM/50 ML VIAL IV PRN (18:57)
[2020-07-05] MEDS: ATORVASTATIN 40 MG TAB PO SCH (21:12)
[2020-07-06] MEDS: NA CHLORIDE 0.9% IV SCH ×2 (00:04→05:52)
[2020-07-06] MEDS: METHYLPRED NA SUC IV SCH ×2 (00:04→05:52)
[2020-07-06] MEDS: PIPER/TAZO/NS 3.375gm 3.375 GM/100 ML BAG IVPB SCH ×2 (00:04→08:32)
[2020-07-06] MEDS: INSULIN -REGULAR HUMAN 50 UNIT/0.5 ML ML SQ SCH ×5 (00:05→23:43)
[2020-07-06] MEDS: propofoL 1,000 MG/100 ML VIAL IV PRN ×5 (00:48→22:03)
[2020-07-06] MEDS: CISATRACURIUM BESYLATE 80 MG in NA CHLORIDE 0.9% 160 ML IV PRN ×2 (02:27→15:01)
[2020-07-06] MEDS: VANCOMYCIN 1.75 GM in NA CHLORIDE 0.9% 500 ML IVPB SCH (04:19)
[2020-07-06 05:59] LABS: Absolute Lymphocytes (CBC) 0.5 K/uL (0.7-4.9); Basophils % 0.5 % (0-1.3); Hematocrit 24.4 % (36.0-45.0); Lymphocytes % 19.1 % (15.3-44.8); RBC Red Blood Cell Count 2.77 M/uL (3.86-4.86)
[2020-07-06 06:16] LABS: Arterial Blood Carboxyhemoglob 0.9 % (0-1.5); Blood Gas Oxyhemoglobin 94.4 % (94-97); Blood O2 Saturation 96.7 % (92-98.5)
[2020-07-06 06:23] LABS: Albumin 1.8 g/dL (3.4-5.0); Bilirubin Direct 0.3 mg/dL (0-0.2); Bilirubin Total 0.5 mg/dL (0.2-1.0); Magnesium 2.3 mg/dL (1.8-2.4); Potassium 4.1 mmol/L (3.5-5.1); Protein, Total 6.2 g/dL (6.4-8.2)
[2020-07-06] MEDS: INSULIN 70/30 100 UNITS/ML SQ SCH ×2 (08:18→16:34)
[2020-07-06] MEDS: THIAMINE 200 MG/2 ML INJ IVP SCH ×2 (08:32→20:08)
[2020-07-06] MEDS: ASPIRIN EC 81 MG TAB PO SCH (08:32)
[2020-07-06] MEDS: FAMOTIDINE 20 MG/2 ML VIAL IV SCH (08:32)
[2020-07-06] MEDS: ENOXAPARIN 100 MG/ML SYR SQ SCH (08:32)
[2020-07-06] MEDS: ZINC SULFATE 220 MG CAP PO SCH (08:33)
[2020-07-06] MEDS: VITAMIN D 1000 UNIT TAB PO SCH (08:33)
[2020-07-06] MEDS: IVERMECTIN 3 MG TABLET PO SCH (08:33)
[2020-07-06] MEDS: ASCORBIC ACID 500 MG TABLET PO SCH ×3 (08:33→20:08)
[2020-07-06] MEDS ORDERED: NA CHLORIDE 0.9% 100 ML ONE (09:07)
--- NOTE | 2020-07-06 09:24 | P.PN ---
Subjective Date of Service: 07/06/20 (TV) Chief Complaint: COVID 19 disease, resp failure, generalized fatigue. Condition stable. NC Physical Examination - Vital Signs Temperature: 97.3 F Blood Pressure: 137/76 Pulse: 84 Respirations: 30 Pulse Ox (%): 94 - Studies Medications List Reviewed: Yes Assessment & Plan - Problems (Diagnosis) (1) Acute respiratory failure due to severe acute respiratory syndrome coronavirus 2 (SARS-CoV-2) infection Current Visit: Yes Status: Acute Plan: CXRY Diffuse ILD. ET satisfactory. Labs reviewed. titrate O2 sat of 90% Recheck ABG, Mild anemia. Vent settings rev. Peep of 15. O2 has improved. Renal function worse. Add Water flushes, Sputum culture Reduce solumederol 125 Q6 as from 07/07, D/C Antibiotics/
[2020-07-06] MEDS: Remdesivir 100 MG in NA CHLORIDE 0.9% 250 ML IV SCH (09:41)
[2020-07-06 11:27] LABS: Arterial Blood Carboxyhemoglob 1.1 % (0-1.5); Blood Gas Oxyhemoglobin 91.7 % (94-97); Blood O2 Saturation 93.9 % (92-98.5)
--- NOTE | 2020-07-06 11:49 | RAD REPORT ---
EXAM DESCRIPTION: RAD - Chest Single View - 07/06/2020 6:41 am CLINICAL HISTORY: resp failure Chest pain. COMPARISON: Chest Single View dated 07/05/2020; Chest Single View dated 07/04/2020; Chest Single View dated 07/02/2020; Chest Single View dated 01/09/2019 FINDINGS: Portable technique limits examination quality. Moderate bilateral pulmonary opacities are noted, mildly improved since prior study. Endotracheal tub e tip is at the level of the aortic arch. Enteric tube descends into the abdomen. IMPRESSION: Mild improvement lung aeration is noted since the comparative study.
[2020-07-06] MEDS ORDERED: SODIUM CHLORIDE 0.9% 10ML INJ IV PRN (12:02)
[2020-07-06] MEDS ORDERED: PANTOPRAZOLE 40 MG INJ IVP ONE (12:02)
--- NOTE | 2020-07-06 14:25 | P.PN ---
Date of Service: 07/04/20 Subjective Patient was intubated and sedated; currently on the ventilator and on max oxygenation Review of Systems Unable to obtain Physical Examination - Vital Signs reviewed - Physical Exam General: Intubated and sedated Respiratory: Diminished, Crackles/rales, Expiratory wheezes Cardiovascular: Regular rate/rhythm, Normal S1 S2, No murmurs Gastrointestinal: Normal bowel sounds, Soft and benign, Non-distended, No tenderness Musculoskeletal: No clubbing, No swelling, No tenderness Neurological: Intubated and sedated Assessment & Plan - Problems (Diagnosis) (1) Acute respiratory failure due to severe acute respiratory syndrome coronavirus 2 (SARS-CoV-2) infection Current Visit: Yes Status: Acute (2) DM2 (diabetes mellitus, type 2) Current Visit: Yes Status: Acute - Plan 1. Continue with IV steroids; continue antiviral therapy 2. Monitor inflammatory markers 3. Repeat chest x-ray if symptoms are progressively worsening 4. Mechanical ventilation; monitor very closely 5. Pulmonary consultation appreciated 6. Continue neb treatments 7. Monitor LFTs 8. GI and DVT prophylaxis
--- NOTE | 2020-07-06 14:26 | P.PN ---
Date of Service: 07/05/20 Subjective Patient's oxygen patient has somewhat improved. Chest x-ray somewhat improved. Review of Systems Unable to obtain Physical Examination - Vital Signs reviewed - Physical Exam General: Patient intubated and sedated Respiratory: Diminished, Crackles/rales, Expiratory wheezes Cardiovascular: Regular rate/rhythm, Normal S1 S2, No murmurs Gastrointestinal: Normal bowel sounds, Soft and benign, Non-distended, No tenderness Musculoskeletal: No clubbing, No swelling, No tenderness Neurological: Intubated and sedated Assessment & Plan - Problems (Diagnosis) (1) Acute respiratory failure due to severe acute respiratory syndrome coronavirus 2 (SARS-CoV-2) infection Current Visit: Yes Status: Acute (2) DM2 (diabetes mellitus, type 2) Current Visit: Yes Status: Acute - Plan 1. Continue with IV steroids; continue antiviral therapy 2. Monitor inflammatory markers 3. Repeat chest x-ray if symptoms are progressively worsening 4. O2 per protocol 5. Pulmonary consultation to manage ventilator and sedation 6. Continue with albuterol neb treatments 7. Monitor LFTs 8. GI and DVT prophylaxis
--- NOTE | 2020-07-06 14:28 | P.PN ---
Date of Service: 07/06/20 Subjective Patient oxygenation is stable. Spoke to and gave him an update on her current clinical status. Review of Systems Unable to obtain Physical Examination - Vital Signs reviewed - Physical Exam General: Intubated and sedated Respiratory: Diminished, Crackles/rales, Expiratory wheezes Cardiovascular: Regular rate/rhythm, Normal S1 S2, No murmurs Gastrointestinal: Normal bowel sounds, Soft and benign, Non-distended, No tenderness Musculoskeletal: No clubbing, No swelling, No tenderness Neurological: Intubated and sedated Assessment & Plan - Problems (Diagnosis) (1) Acute respiratory failure due to severe acute respiratory syndrome coronavirus 2 (SARS-CoV-2) infection Current Visit: Yes Status: Acute (2) DM2 (diabetes mellitus, type 2) Current Visit: Yes Status: Acute - Plan Continue plan of care as mentioned below 1. Continue with IV steroids; on antiviral therapy; 3/5 2. Monitor inflammatory markers 3. Repeat chest x-ray if symptoms are progressively worsening 4. Mechanical ventilation; continue to try to wean off the ventilator 5. Pulmonary consultation appreciated 6. Continue neb treatments 7. Monitor LFTs 8. GI and DVT prophylaxis
[2020-07-06] MEDS: PANTOPRAZOLE 40 MG INJ IVP SCH (20:08)
[2020-07-06] MEDS: ATORVASTATIN 40 MG TAB PO SCH (20:08)
[2020-07-07] MEDS: CISATRACURIUM BESYLATE 80 MG in NA CHLORIDE 0.9% 160 ML IV PRN (01:57)
[2020-07-07] MEDS: propofoL 1,000 MG/100 ML VIAL IV PRN ×5 (03:24→20:30)
[2020-07-07] MEDS: INSULIN -REGULAR HUMAN 50 UNIT/0.5 ML ML SQ SCH ×4 (05:47→23:51)
[2020-07-07] MEDS: GLUCERNA 1.5 CAL 1,000 ML BOT RTH SCH (05:47)
[2020-07-07 06:00] LABS: Absolute Lymphocytes (CBC) 0.3 K/uL (0.7-4.9); Basophils % 0.4 % (0-1.3); Hematocrit 26.4 % (36.0-45.0); Lymphocytes % 7.5 % (15.3-44.8); MPV 8.6 fL (7.6-11.3); RBC Red Blood Cell Count 2.99 M/uL (3.86-4.86)
[2020-07-07] MEDS ORDERED: METHYLPRED NA SUC IV SCH (06:00)
[2020-07-07] MEDS ORDERED: NA CHLORIDE 0.9% IV SCH (06:00)
[2020-07-07] MEDS ORDERED: METHYLPREDNISOLONE 125 MG INJ IV SCH (06:00)
[2020-07-07 06:02] LABS: Arterial Blood Carboxyhemoglob 0.9 % (0-1.5); Blood Gas Oxyhemoglobin 95.9 % (94-97); Blood O2 Saturation 98.1 % (92-98.5)
[2020-07-07 06:22] LABS: Albumin 1.7 g/dL (3.4-5.0); Bilirubin Direct 0.1 mg/dL (0-0.2); Bilirubin Total 0.3 mg/dL (0.2-1.0); C-Reactive Protein 92.9 mg/L (<3.00); Ferritin 470.9 ng/mL (8-388); Magnesium 2.8 mg/dL (1.8-2.4); Phosphorus 2.5 mg/dL (2.5-4.9); Potassium 3.4 mmol/L (3.5-5.1)
[2020-07-07] MEDS ORDERED: LOPERAMIDE HCL 1 MG/5 ML UCUP FT PRN (07:45)
[2020-07-07] MEDS: INSULIN 70/30 100 UNITS/ML SQ SCH ×2 (08:28→16:30)
[2020-07-07] MEDS: METHYLPREDNISOLONE 125 MG INJ IV SCH ×3 (08:29→23:51)
[2020-07-07] MEDS: VITAMIN D 1000 UNIT TAB PO SCH (08:29)
[2020-07-07] MEDS: THIAMINE 200 MG/2 ML INJ IVP SCH ×2 (08:29→20:13)
[2020-07-07] MEDS: ASCORBIC ACID 500 MG TABLET PO SCH ×3 (08:29→20:12)
[2020-07-07] MEDS: ASPIRIN EC 81 MG TAB PO SCH (08:29)
[2020-07-07] MEDS: ZINC SULFATE 220 MG CAP PO SCH (08:34)
[2020-07-07] MEDS: PANTOPRAZOLE 40 MG INJ IVP SCH ×2 (08:35→20:13)
--- NOTE | 2020-07-07 08:36 | RAD REPORT ---
EXAM DESCRIPTION: Abhilash Single View07/07/2020 4:33 am CLINICAL HISTORY: Respiratory failure COMPARISON: July 06, 2020 FINDINGS: Tip of an endotracheal tube lies at the level of the top of the aortic arch. Nasogastric tube within stomach Overall no significant change in the extensive bilateral pulmonary opacities
[2020-07-07] MEDS ORDERED: ENOXAPARIN 100 MG/ML SYR SQ SCH (09:00)
[2020-07-07] MEDS: Remdesivir 100 MG in NA CHLORIDE 0.9% 250 ML IV SCH (09:37)
[2020-07-07 10:46] LABS: C.diff Antigen/Toxin Ag neg : Tox neg (NEG : NEG)
[2020-07-07] MEDS: NACHLORIDE 0.45% 1,000 ML IV SCH ×2 (11:19→23:54)
[2020-07-07] MEDS: LORazepam 2 MG/ML VIAL IV PRN ×4 (12:23→23:51)
[2020-07-07] MEDS: LOPERAMIDE HCL 2 MG CAPSULE FT PRN ×2 (16:01→20:28)
[2020-07-07] MEDS ORDERED: GLUCAGON 1 MG/VIAL IM PRN (18:13)
[2020-07-07] MEDS ORDERED: D50W 25 GM/50 ML SYRINGE IV PRN (18:13)
[2020-07-07] MEDS: ATORVASTATIN 40 MG TAB PO SCH (20:13)
[2020-07-08] MEDS: propofoL 1,000 MG/100 ML VIAL IV PRN ×7 (01:17→22:29)
[2020-07-08] MEDS: INSULIN -REGULAR HUMAN 50 UNIT/0.5 ML ML SQ SCH ×4 (05:28→23:45)
[2020-07-08] MEDS: LORazepam 2 MG/ML VIAL IV PRN ×3 (05:29→15:06)
--- NOTE | 2020-07-08 05:41 | P.PN ---
Date of Service: 07/07/20 Subjective No significant changes. Taken off paralytics today. Patient is starting to wake up; family was able to face time with the patient. Renal function has stabilize. Continue to monitor closely. Review of Systems Unable to obtain Physical Examination - Vital Signs reviewed - Physical Exam General: Intubated and sedated Respiratory: Diminished, Crackles/rales, Expiratory wheezes Cardiovascular: Regular rate/rhythm, Normal S1 S2, No murmurs Gastrointestinal: Normal bowel sounds, Soft and benign, Non-distended, No tenderness Musculoskeletal: No clubbing, No swelling, No tenderness Neurological: Intubated and sedated Assessment & Plan - Problems (Diagnosis) (1) Acute respiratory failure due to severe acute respiratory syndrome coronavirus 2 (SARS-CoV-2) infection Current Visit: Yes Status: Acute (2) DM2 (diabetes mellitus, type 2) Current Visit: Yes Status: Acute (3) Acute kidney injury Current Visit: Yes Status: Acute - Plan 1. Continue with IV steroids; continue antiviral therapy 2. Monitor inflammatory markers 3. Repeat chest x-ray if symptoms are progressively worsening 4. Mechanical ventilation; monitor very closely 5. Pulmonary consultation appreciated 6. Continue neb treatments 7. Monitor LFTs 8. Gentle hydration and monitor renal function 9. GI and DVT prophylaxis
[2020-07-08 05:44] LABS: Blood Gas Oxyhemoglobin 88.5 % (94-97); Blood O2 Saturation 90.6 % (92-98.5)
[2020-07-08 05:47] LABS: Absolute Lymphocytes (CBC) 0.6 K/uL (0.7-4.9); Basophils % 0.3 % (0-1.3); Hematocrit 24.5 % (36.0-45.0); Lymphocytes % 9.1 % (15.3-44.8); MPV 8.6 fL (7.6-11.3)
[2020-07-08] MEDS: GLUCERNA 1.5 CAL 1,000 ML BOT RTH SCH (06:26)
[2020-07-08 06:28] LABS: Albumin 1.7 g/dL (3.4-5.0); Bilirubin Direct 0.2 mg/dL (0-0.2); Bilirubin Total 0.3 mg/dL (0.2-1.0); C-Reactive Protein 50.7 mg/L (<3.00); Ferritin 302.6 ng/mL (8-388); Protein, Total 5.7 g/dL (6.4-8.2)
[2020-07-08 06:29] LABS: Potassium 3.3 mmol/L (3.5-5.1)
[2020-07-08] MEDS ORDERED: INSULIN 70/30 100 UNITS/ML SQ SCH (07:30)
[2020-07-08] MEDS ORDERED: CALCIUM GLUC 10% INJ 4.65 MEQ in NA CHLORIDE 0.9% 100 ML IV ONE (07:47)
--- NOTE | 2020-07-08 07:54 | P.PN ---
Subjective Date of Service: 07/08/20 Chief Complaint: Respiratory failure Patient is still on high concentrations of oxygen with agitation chest x-ray no significant chain Review of Systems is unable to be obtained Physical Examination - Vital Signs Temperature: 97.3 F Blood Pressure: 110/60 Pulse: 50 Respirations: 26 Pulse Ox (%): 96 - Physical Exam General: Unresponsive Respiratory: Clear to auscultation bilaterally, Diminished Cardiovascular: No edema - Studies Medications List Reviewed: Yes Assessment & Plan - Problems (Diagnosis) (1) Acute respiratory failure due to severe acute respiratory syndrome coronavirus 2 (SARS-CoV-2) infection Current Visit: Yes Status: Acute Plan: Respiratory failure diffuse ILD endotracheal tube in satisfactory position renal function improving BUN elevated reduce dose of steroids blood sugars elevated fluid flushes Dc atorvastatin change to p.o. Eliquis Dc Lovenox tolerating tube feeds on 70% FiO2
[2020-07-08 08:15] LABS: Blood Morphology Comment NOT SEEN (NOT SEEN); Platelet Estimate ADEQ
[2020-07-08] MEDS: PANTOPRAZOLE 40 MG INJ IVP SCH ×2 (08:18→20:39)
[2020-07-08] MEDS: ASCORBIC ACID 500 MG TABLET PO SCH ×3 (08:19→20:39)
[2020-07-08] MEDS: THIAMINE 200 MG/2 ML INJ IVP SCH ×2 (08:20→20:39)
[2020-07-08] MEDS: ASPIRIN EC 81 MG TAB PO SCH (08:20)
[2020-07-08] MEDS: ZINC SULFATE 220 MG CAP PO SCH (08:20)
[2020-07-08] MEDS: VITAMIN D 1000 UNIT TAB PO SCH (08:20)
[2020-07-08] MEDS: METHYLPREDNISOLONE 125 MG INJ IV SCH ×3 (08:20→23:45)
[2020-07-08] MEDS: APIXABAN 5 MG TABLET PO SCH ×2 (08:20→20:39)
[2020-07-08] MEDS: INSULIN 70/30 100 UNITS/ML SQ SCH ×2 (08:21→16:14)
[2020-07-08] MEDS: Remdesivir 100 MG in NA CHLORIDE 0.9% 250 ML IV SCH (08:41)
--- NOTE | 2020-07-08 08:51 | RAD REPORT ---
EXAM DESCRIPTION: RAD - Chest Single View - 07/08/2020 7:08 am CLINICAL HISTORY: resp failure Chest pain. COMPARISON: Chest Single View dated 07/07/2020; Chest Single View dated 07/06/2020; Chest Single View dated 07/05/2020; Chest Single View dated 07/04/2020 FINDINGS: Portable technique limits examination quality. The tip of the endotracheal tube is at the level of the mid aortic arch. Extensive bilateral pulmonar y opacities are again seen, unchanged. The heart is mildly enlarged in size.
[2020-07-08] MEDS: LOPERAMIDE HCL 2 MG CAPSULE FT PRN (13:09)
--- NOTE | 2020-07-08 16:55 | P.PN ---
Subjective Date of Service: 07/08/20 Chief Complaint: COVID 19 disease, resp failure, generalized fatigue. Subjective: Other (Patient remains intubated.) Physical Examination - Vital Signs Temperature: 97.7 F Blood Pressure: 114/70 Pulse: 50 Respirations: 30 Pulse Ox (%): 88 - Studies Medications List Reviewed: Yes Assessment & Plan Discharge Plan: Home Plan to discharge in: Greater than 2 days Physician Review Additional Text: Physical - Problems (Diagnosis) (1) Acute respiratory failure due to severe acute respiratory syndrome coronavirus 2 (SARS-CoV-2) infection Current Visit: Yes Status: Acute (2) DM2 (diabetes mellitus, type 2) Current Visit: Yes Status: Acute (3) Acute kidney injury Current Visit: Yes Status: Acute - Plan Physical exam: Patient remains intubated. Heart: Monitor show regular rate and rhythm Lungs: Patient intubated Extremities: Lower extremities showed some mild edema Impression: Acute respiratory failure secondary to severe acute respiratory syndrome related to COVID-19 pneumonia Diabetes mellitus type 2 Acute renal failure with hypernatremia Anemia of chronic disease Plan: Continue IV steroids. Monitor inflammatory markers. Pulmonology adjusting ventilation on ventilator. Will consult nephrology to further evaluate her acute renal failure with hypernatremia. Patient to get water flushes. Will monitor closely. Await further recommendations. Patient on DVT prophylaxis. Continue plan of care.
[2020-07-08] MEDS: CISATRACURIUM BESYLATE 80 MG in NA CHLORIDE 0.9% 160 ML IV PRN (17:06)
--- NOTE | 2020-07-08 17:52 | RAD REPORT ---
EXAM DESCRIPTION: Abhilash Single View07/08/2020 5:25 pm CLINICAL HISTORY: Device placement endotracheal tube placement IMPRESSION: An endotracheal tube has its tip at the level of the top of the aortic arch
[2020-07-08 19:31] LABS: Arterial Blood Carboxyhemoglob 1.4 % (0-1.5); Blood Gas Oxyhemoglobin 81.9 % (94-97); Blood O2 Saturation 84.3 % (92-98.5)
--- NOTE | 2020-07-08 19:54 | P.CNS ---
Date of Consult: 07/08/20 Reason for Consult: LISA Requesting Physician: Telly Wallace Chief Complaint: COVID 19 disease, resp failure, generalized fatigue. History of Present Illness: 59 yo HF CKD, DM presented to the ER with 4 days of moderate to severe, progr essive dyspnea in the setting of COVID-19. Limited HPI/ ROS due to intubation and sedation. 59 y o female pt with hx of COVID 19 disease diagnosed 5 dys ago who came back to the ED for evaluation due to worsening sob and generalized weakness. she had c/o bodyaches and chst discomfort. she denied any diarrhea, fever, chills, rigor, n/v but she feels very poor. CXR done in the ED showed viral pneumonia pattern with patchy opacifications on all lung harvey. she was started on supplemental oxygen and was asked to be admitted on observation for her covid 19 disease status. 10:27 This 59 yrs old Female presents to ER via Wheelchair with complaints of jmm COVID+, Low O2. 10:27 The patient or guardian reports cough. Onset: The symptoms/episode began/occurred jmm gradually, 4 day(s) ago. Modifying factors: The symptoms are alleviated by nothing. the symptoms are aggravated by nothing. Associated signs and symptoms: Pertinent positives: cough, shortness of breath, body aches. This is a 59 year old female with a history of anemia, DM that presents to the ED with complaints of cough, shortness of breath, body aches beginning approx 4 days ago. States she is feeling more short of breath. Allergies No Known Allergies Allergy (Verified 07/02/20 15:23) Home medications list reviewed: Yes Home Medications: Escitalopram [Lexapro] 10 mg PO DAILY 07/02/20 Losartan Potassium 100 mg PO DAILY 07/02/20 Phentermine HCl 37.5 mg PO DAILY 07/02/20 Simvastatin 20 mg PO DAILY 07/02/20 Topiramate [Topamax] 25 mg PO DAILY 07/02/20 - Past Medical/Surgical History Diabetic: Yes -: GERD -: DM -: ANEMIA - Social History Alcohol use: Yes CD- Drugs: No Caffeine use: No Place of Residence: Home Review of Systems is unable to be obtained Physical Examination Temp Pulse Resp BP Pulse Ox 97.7 F 88 30 H 132/61 95 07/08/20 16:54 07/08/20 18:00 07/08/20 18:00 07/08/20 18:00 07/08/20 18:00 General: In no apparent distress, Unresponsive HEENT: Atraumatic Neck: Supple Respiratory: Diminished Cardiovascular: No edema, Regular rate/rhythm Gastrointestinal: Soft and benign, Non-distended Musculoskeletal: No clubbing, No contractures Integumentary: No rashes, No cyanosis Imagings Data: EXAM DESCRIPTION: RADChest Single View07/08/2020 5:25 pm CLINICAL HISTORY: Device placement endotracheal tube placement IMPRESSION: An endotracheal tube has its tip at the level of the top of the aortic arch EXAM DESCRIPTION: CT - Chest For Pe Angio - 07/02/2020 3:15 pm CLINICAL HISTORY: Chest pain. shortness of breath COMPARISON: Chest For Pe Angio dated 01/09/2019 TECHNIQUE: CT angiogram of the pulmonary arteries was performed with MIP. All CT scans are performed using dose optimization technique as appropriate and may include automated exposure control or mA/KV adjustment according to patient size. FINDINGS: No evidence of pulmonary thromboembolism. No acute aortic finding demonstrated. Extensive interstitial and alveolar lung opacities are present bilaterally, greatest in the upper lobes, likely representing pneumonia. No significant pericardial or pleural fluid. No concerning bony finding. Moderate axial hiatal hernia. IMPRESSION: No evidence of pulmonary thromboembolism. Extensive interstitial and alveolar lung opacities bilaterally compatible with COVID-19 infection. EXAM DESCRIPTION: CTAbdomen Pelvis W Contrast - 07/02/2020 3:15 pm CLINICAL HISTORY: Abdominal pain. abdominal pain, flank pain COMPARISON: No comparisons TECHNIQUE: Biphasic CT imaging of the abdomen and pelvis was performed with 100 ml non-ionic IV contrast. All CT scans are performed using dose optimization technique as appropriate and may include automated exposure control or mA/KV adjustment according to patient size. FINDINGS: Mild moderate bibasilar lung opacities are present. Diffuse fatty liver is seen. Moderate axial hiatal hernia. The spleen, pancreas, adrenal glands are within normal limits. Nonobstructing bilateral renal calculi. No bowel obstruction, free air, free fluid or abscess. Moderate stool is retained in the colon. The appendix is normal. No evidence of significant lymphadenopathy. No suspicious bony findings. IMPRESSION: Bilateral nephrolithiasis without hydronephrosis. Diffuse fatty liver. Moderate hiatal hernia. Conclusions/Impression: A/P: Continue the current POC and Medications other than the changes listed. AM Labs PRN. Recommend daily weight. Please see the orders for complete details. >30min patient care LISA in the setting of hypotension CKD III with proteinuria -No NSAIDs -Give IV Albumin Hypernatremia -Increase free water through FT Hypokalemia -Replete potassium through FT Acidosis -Start oral bicarb through FT Hypocalcemia -Start Calcitriol through FT HTN complicated by hypotension -Give IV Albumin DM II with CKD -Continue Insulin 70/30 Severe malnutrition with hypoalbuminemia -Give IV Albumin -Maintain nutrition Anemia in chronic illness -Monitor H&H -Transfuse PRBC as needed Thank you kindly for the consultation. Case discussed with Dr. Wallace
[2020-07-08] MEDS ORDERED: POTASSIUM 25 MEQ EFFERV TAB PO ONE (20:02)
[2020-07-08] MEDS: ALBUMIN HUMAN 25% 200 ML IV SCH (20:41)
[2020-07-08] MEDS: SODIUM BICARB 325 MG TAB PO SCH (22:14)
[2020-07-09] MEDS: ALBUMIN HUMAN 25% 200 ML IV SCH (01:20)
[2020-07-09] MEDS: propofoL 1,000 MG/100 ML VIAL IV PRN ×6 (02:19→19:52)
[2020-07-09] MEDS: INSULIN -REGULAR HUMAN 50 UNIT/0.5 ML ML SQ SCH ×4 (05:20→23:38)
[2020-07-09] MEDS: SODIUM BICARB 325 MG TAB PO SCH ×4 (05:20→20:14)
[2020-07-09 05:36] LABS: C-Reactive Protein 22.1 mg/L (<3.00); Ferritin 281.5 ng/mL (8-388)
[2020-07-09] MEDS: CISATRACURIUM BESYLATE 80 MG in NA CHLORIDE 0.9% 160 ML IV PRN (07:53)
[2020-07-09] MEDS: INSULIN 70/30 100 UNITS/ML SQ SCH ×2 (07:53→17:06)
[2020-07-09] MEDS: VITAMIN D 1000 UNIT TAB PO SCH (08:31)
[2020-07-09] MEDS: APIXABAN 5 MG TABLET PO SCH ×2 (08:31→20:14)
[2020-07-09] MEDS: ASPIRIN EC 81 MG TAB PO SCH (08:32)
[2020-07-09] MEDS: CALCITROL 0.25 MCG CAP PO SCH (08:32)
[2020-07-09] MEDS: METHYLPREDNISOLONE 125 MG INJ IV SCH ×3 (08:32→23:39)
[2020-07-09] MEDS: ASCORBIC ACID 500 MG TABLET PO SCH ×3 (08:32→20:14)
[2020-07-09] MEDS: THIAMINE 200 MG/2 ML INJ IVP SCH ×2 (08:32→20:14)
[2020-07-09] MEDS: ZINC SULFATE 220 MG CAP PO SCH (08:32)
[2020-07-09] MEDS: FAMOTIDINE 20 MG TAB PO SCH (08:43)
[2020-07-09 09:34] LABS: Arterial Blood Carboxyhemoglob 1.4 % (0-1.5); Blood Gas Oxyhemoglobin 91.4 % (94-97); Blood O2 Saturation 93.9 % (92-98.5)
--- NOTE | 2020-07-09 10:38 | RAD REPORT ---
EXAM DESCRIPTION: RAD - Chest Single View - 07/09/2020 5:56 am CLINICAL HISTORY: resp failure COMPARISON: July 08 TECHNIQUE: AP portable chest image was obtained 07/09/2020 5:56 am . FINDINGS: Bilateral lung opacification is present similar or slightly worse than the prior study. Ov erlying breast tissue and implants increased lung base density. Film technique is slightly underpenet rated compared to prior exam. Heart and vasculature are normal. No measurable pleural effusion and no pneumothorax. Enteric tube extends below the diaphragm, off the field of view. ET tube tip is mid aortic arch, 3.5 cm above the kimi. Hanson-shaped air density by the right hemidiaphragm may be due to consolidated right lower lobe pa renchyma superimposed on aerated right middle lobe. Free air under the right hemidiaphragm is not ent irely excluded. Findings were discussed with the patient's nurse 10:34 a.m.. Repeat chest film was requested to re-ev aluate this finding. IMPRESSION: Similar to slightly worse lung parenchymal opacification since prior day imaging. ET tube tip is mid aortic arch level, 3.5 cm above the kimi. Hanson-shaped air density right lung base may be superimposed consolidated and non consolidated low er lobes. Free air under the diaphragm not entirely excluded.
--- NOTE | 2020-07-09 11:24 | RAD REPORT ---
EXAM DESCRIPTION: RAD - Chest Single View - 07/09/2020 11:13 am CLINICAL HISTORY: free space in abd, pneumonia COMPARISON: Portable chest July 09 TECHNIQUE: AP portable chest image was obtained 07/09/2020 11:13 am . FINDINGS: Repeat portable examination was performed. Exam was focused on the lower lung harvey and d iaphragm. NG tube is well positioned in a decompressed stomach. The crescent-shaped air density detailed on the earlier examination does not persist on this examination. There are no persistent or current finding s that would suggest free intraperitoneal air. The prior finding was likely related to differences in lobar density. IMPRESSION: Repeat imaging does not find any evidence for free air below the right hemidiaphragm. No emergent or concerning finding is identifiable on this study.
--- NOTE | 2020-07-09 12:18 | P.PN ---
Subjective Date of Service: 07/09/20 Chief Complaint: Respiratory failure No change patient is still requiring paralytic agents is on high concentrations of oxygen Review of Systems is unable to be obtained Physical Examination - Vital Signs Temperature: 97.9 F Blood Pressure: 121/62 Pulse: 77 Respirations: 30 Pulse Ox (%): 96 - Physical Exam General: Unresponsive Respiratory: Clear to auscultation bilaterally, Diminished Cardiovascular: No edema - Studies Medications List Reviewed: Yes Assessment & Plan - Problems (Diagnosis) (1) Acute respiratory failure due to severe acute respiratory syndrome coronavirus 2 (SARS-CoV-2) infection Current Visit: Yes Status: Acute Plan: Respiratory failure still has bilateral infiltrates endotracheal tube position satisfactory no labs ordered for today white count normal mildly anemic blood sugars very elevated the to increase the dose of insulin continue with water flushes oxygenation satisfactory continue titrate O2 down patient has diarrhea
--- NOTE | 2020-07-09 15:15 | P.PN ---
Subjective Date of Service: 07/09/20 Chief Complaint: Respiratory failure Subjective: Other (Patient remains sedated and intubated.) Physical Examination - Vital Signs Temperature: 97.9 F Blood Pressure: 146/70 Pulse: 108 Respirations: 30 Pulse Ox (%): 90 - Studies Medications List Reviewed: Yes Assessment & Plan Discharge Plan: Home Plan to discharge in: Greater than 2 days Physician Review Additional Text: Physical exam: Patient remains sedated and intubated. Heart: Regular rate and rhythm Lungs: Patient intubated. FiO2 at 80%. GI: Fecal management system in place Extremities: Lower extremities showed some mild edema Impression: Acute respiratory failure secondary to severe acute respiratory syndrome related to COVID-19 pneumonia Diabetes mellitus type 2 with hyperglycemia Acute renal failure with hypernatremia/metabolic acidosis Anemia of chronic disease Diarrhea without evidence of C. difficile colitis Mild protein malnutrition Plan: Acute respiratory failure secondary to severe acute respiratory syndrome related to COVID-19 pneumonia: Patient remains intubated and sedated. Continue IV steroid. Continue supplementation. Pulmonology continue to wean off. Monitor and trend labs. Continue with water flushes. Nephrology was consulted yesterday to help with acute renal failure and hypernatremia. Patient on DVT prophylaxis. We will continue to monitor the patient closely. Diabetes mellitus type 2 with hyperglycemia: Continue to adjust insulin therapy for better control. Acute renal failure with hypernatremia: Continue with nephrology recommendations. Patient receiving bicarbonate. Potassium replacement. Anemia of chronic disease: Overall stable. Monitor this closely. Diarrhea without evidence of C. difficile colitis: Patient with fecal management system. C. difficile negative. Mild protein malnutrition: Continue with supplementation. Time Spent Managing Pts Care (In Minutes): 55
[2020-07-09] MEDS ORDERED: INSULIN 70/30 100 UNITS/ML SQ SCH (16:30)
[2020-07-09] MEDS ORDERED: D50W 25 GM/50 ML VIAL IV PRN (19:00)
--- NOTE | 2020-07-09 19:22 | P.PN ---
Date of Service: 07/09/20 Vital Signs Temp Pulse Resp BP Pulse Ox 98.3 F 91 H 30 H 123/61 97 07/09/20 16:00 07/09/20 18:00 07/09/20 18:00 07/09/20 18:00 07/09/20 18:00 Medications Acetaminophen (Acetaminophen 500 Mg Tab) 500 mg PO Q4HP PRN PRN Reason: Pain scale 2-4 (Mild) Last Admin: 07/04/20 08:39 Dose: 500 mg Documented by: Albuterol Sulfate (Albuterol 2.5 Mg/3 Ml Neb Alla) 2.5 mg NEB Q6HP PRN PRN Reason: SHORTNESS OF BREATH Last Admin: 07/03/20 13:48 Dose: 2.5 mg Documented by: Apixaban (Apixaban 5 Mg Tablet) 5 mg PO BID [facility] Last Admin: 07/09/20 08:31 Dose: 5 mg Documented by: Ascorbic Acid (Ascorbic Acid 500 Mg Tablet) 1,000 mg PO TID [facility] Last Admin: 07/09/20 15:03 Dose: 1,000 mg Documented by: Aspirin (Aspirin Ec 81 Mg Tab) 162 mg PO DAILY [facility] Last Admin: 07/09/20 08:32 Dose: 162 mg Documented by: Benzonatate (Benzonatate 100 Mg Cap) 100 mg PO TID PRN PRN Reason: COUGH Calcitriol (Calcitrol 0.25 Mcg Cap) 0.5 mcg PO DAILY [facility] Last Admin: 07/09/20 08:32 Dose: 0.5 mcg Documented by: Cholecalciferol (Vitamin D 1000 Unit Tab) 4,000 unit PO DAILY [facility] Last Admin: 07/09/20 08:31 Dose: 4,000 unit Documented by: Dextrose (D50w 25 Gm/50 Ml Vial) 12.5 gm IV PRN PRN; Protocol PRN Reason: HYPOGLYCEMIA Enteral Nutritional Formula (Glucerna 1.5 Arvind 1,000 Ml Bot) 1,000 ml RTH CONT [facility] Famotidine (Famotidine 20 Mg Tab) 20 mg PO DAILY [facility]; Protocol Last Admin: 07/09/20 08:43 Dose: 20 mg Documented by: Fentanyl Citrate (Fentanyl Citr 100 Mcg/2 Ml) 25 mcg IV Q4HP PRN PRN Reason: Pain scale 8-10 (Severe) Last Admin: 07/04/20 07:46 Dose: 25 mcg Documented by: Glucagon (Glucagon 1 Mg/Vial) 1 mg IM 1X PRN; Protocol PRN Reason: HYPOGLYCEMIA Haloperidol Lactate (Haloperidol Lact 5 Mg/Ml Inj) 2 mg IV Q4HP PRN PRN Reason: AGITATION Hydromorphone HCl (Hydromorphone Hcl 2 Mg/Ml Inj) 2 mg IV Q4H PRN PRN Reason: Pain scale 8-10 (Severe) Propofol (Diprivan) 1,000 mg in 100 mls @ 0 mls/hr IV PRN PRN; Protocol PRN Reason: SEDATION Last Admin: 07/09/20 16:12 Dose: 100 mls Documented by: Sodium Chloride (Sodium Chloride) 250 mls @ 999 mls/hr IV Q15M PRN PRN Reason: HYPOTENSION Last Admin: 07/04/20 06:08 Dose: 250 mls Documented by: Cisatracurium Besylate 80 mg/ (Sodium Chloride) 200 mls @ 0 mls/hr IV PRN PRN; Protocol PRN Reason: NEUROMUSCULAR BLOCKAGE Last Admin: 07/09/20 07:53 Dose: 200 mls Documented by: Insulin Human Isoph/Insulin Regular (Insulin 70/30 100 Units/Ml) 65 unit SQ BIDAC [facility] Last Admin: 07/09/20 17:06 Dose: 65 units Documented by: Insulin Human Regular (Insulin -Regular Human 50 Unit/0.5 Ml Ml) 0 unit SQ Q6H [facility]; Protocol Last Admin: 07/09/20 17:05 Dose: 10 unit Documented by: Loperamide HCl (Loperamide Hcl 2 Mg Capsule) 2 mg FT Q4H PRN PRN Reason: DIARRHEA Last Admin: 07/08/20 13:09 Dose: 2 mg Documented by: Lorazepam (Lorazepam 2 Mg/Ml Vial) 2 mg IV Q2H PRN PRN Reason: SEDATION Last Admin: 07/08/20 15:06 Dose: 2 mg Documented by: Methylprednisolone Sodium Succinate (Methylprednisolone 125 Mg Inj) 80 mg IV Q8H [facility] Last Admin: 07/09/20 15:02 Dose: 80 mg Documented by: Midazolam HCl (Midazolam Hcl 2 Mg/2 Ml Inj) 2 mg IV Q2HP PRN PRN Reason: SEDATION Last Admin: 07/04/20 05:40 Dose: 2 mg Documented by: Ondansetron HCl (Ondansetron 4 Mg/2 Ml Vial) 4 mg IV Q6HP PRN PRN Reason: NAUSEA / VOMITING Sodium Bicarbonate (Sodium Bicarb 325 Mg Tab) 650 mg PO Q6H [facility] Last Admin: 07/09/20 15:03 Dose: 650 mg Documented by: Sodium Chloride (Flush Normal Saline 10 Ml) 10 ml IV BID [facility] Last Admin: 07/09/20 08:33 Dose: 10 ml Documented by: Sodium Chloride (Sodium Chloride 0.9% 10ml Inj) 10 ml IV UD PRN PRN Reason: Diluant Thiamine HCl (Thiamine 200 Mg/2 Ml Inj) 200 mg IVP BID [facility] Last Admin: 07/09/20 08:32 Dose: 200 mg Documented by: Zinc Sulfate (Zinc Sulfate 220 Mg Cap) 220 mg PO DAILY [facility] Last Admin: 07/09/20 08:32 Dose: 220 mg Documented by: Assessment/ Plan: Nephrology Limited IH/ ROS due to intubation/ sedation No acute events overnight. Vitals, medications, blood work and imaging reviewed in the chart. General: In no apparent distress, Unresponsive HEENT: Atraumatic Neck: Supple Respiratory: Diminished Cardiovascular: No edema, Regular rate/rhythm Gastrointestinal: Soft and benign, Non-distended Musculoskeletal: No clubbing, No contractures Integumentary: No rashes, No cyanosis Patient care >30min Imagings Data: EXAM DESCRIPTION: Abhilash Single View07/08/2020 5:25 pm CLINICAL HISTORY: Device placement endotracheal tube placement IMPRESSION: An endotracheal tube has its tip at the level of the top of the aortic arch EXAM DESCRIPTION: CT - Chest For Pe Angio - 07/02/2020 3:15 pm CLINICAL HISTORY: Chest pain. shortness of breath COMPARISON: Chest For Pe Angio dated 01/09/2019 TECHNIQUE: CT angiogram of the pulmonary arteries was performed with MIP. All CT scans are performed using dose optimization technique as appropriate and may include automated exposure control or mA/KV adjustment according to patient size. FINDINGS: No evidence of pulmonary thromboembolism. No acute aortic finding demonstrated. Extensive interstitial and alveolar lung opacities are present bilaterally, greatest in the upper lobes, likely representing pneumonia. No significant pericardial or pleural fluid. No concerning bony finding. Moderate axial hiatal hernia. IMPRESSION: No evidence of pulmonary thromboembolism. Extensive interstitial and alveolar lung opacities bilaterally compatible with COVID-19 infection. EXAM DESCRIPTION: CTAbdomen Pelvis W Contrast - 07/02/2020 3:15 pm CLINICAL HISTORY: Abdominal pain. abdominal pain, flank pain COMPARISON: No comparisons TECHNIQUE: Biphasic CT imaging of the abdomen and pelvis was performed with 100 ml non-ionic IV contrast. All CT scans are performed using dose optimization technique as appropriate and may include automated exposure control or mA/KV adjustment according to patient size. FINDINGS: Mild moderate bibasilar lung opacities are present. Diffuse fatty liver is seen. Moderate axial hiatal hernia. The spleen, pancreas, adrenal glands are within normal limits. Nonobstructing bilateral renal calculi. No bowel obstruction, free air, free fluid or abscess. Moderate stool is retained in the colon. The appendix is normal. No evidence of significant lymphadenopathy. No suspicious bony findings. IMPRESSION: Bilateral nephrolithiasis without hydronephrosis. Diffuse fatty liver. Moderate hiatal hernia. Conclusions/Impression: A/P: Continue the current POC and Medications other than the changes listed. AM Labs PRN. Recommend daily weight. Please see the orders for complete details. >30min patient care LISA in the setting of hypotension CKD III with proteinuria -No NSAIDs Hypernatremia -Continue free water through FT Hypokalemia Acidosis -Continue oral bicarb through FT Hypocalcemia -Continue Calcitriol through FT HTN complicated by hypotension -Hold Losartan DM II with CKD -Continue Insulin 70/30 Severe malnutrition with hypoalbuminemia -Maintain nutrition Anemia in chronic illness -Monitor H&H -Transfuse PRBC as needed COVID-19 PNA Acute hypoxic respiratory failure -Continue Oxygen supplementation -Continue steroids -Continue Vitamin C and Zinc
[2020-07-10] MEDS: CISATRACURIUM BESYLATE 80 MG in NA CHLORIDE 0.9% 160 ML IV PRN (02:34)
[2020-07-10] MEDS: SODIUM BICARB 325 MG TAB PO SCH ×4 (02:34→20:13)
[2020-07-10 05:06] LABS: Absolute Lymphocytes (CBC) 0.9 K/uL (0.7-4.9); Basophils % 0.2 % (0-1.3); Lymphocytes % 9.9 % (15.3-44.8); MPV 8.6 fL (7.6-11.3); RBC Red Blood Cell Count 2.04 M/uL (3.86-4.86)
[2020-07-10 05:27] LABS: Hematocrit 17.9 % (36.0-45.0)
[2020-07-10] MEDS: INSULIN -REGULAR HUMAN 50 UNIT/0.5 ML ML SQ SCH ×4 (05:35→23:52)
[2020-07-10 05:49] LABS: Albumin 2.8 g/dL (3.4-5.0); Bilirubin Direct 0.2 mg/dL (0-0.2); Bilirubin Total 0.3 mg/dL (0.2-1.0); C-Reactive Protein 19.1 mg/L (<3.00); Ferritin 220.7 ng/mL (8-388); Phosphorus 2.9 mg/dL (2.5-4.9); Potassium 4.2 mmol/L (3.5-5.1)
[2020-07-10] MEDS: propofoL 1,000 MG/100 ML VIAL IV PRN ×5 (06:04→22:40)
[2020-07-10 06:28] LABS: Arterial Blood Carboxyhemoglob 0.9 % (0-1.5); Blood Gas Oxyhemoglobin 96.6 % (94-97); Blood O2 Saturation 98.9 % (92-98.5)
--- NOTE | 2020-07-10 07:14 | RAD REPORT ---
EXAM DESCRIPTION: Abhilash Single View07/10/2020 6:14 am CLINICAL HISTORY: Respiratory failure COMPARISON: July 09, 2020 FINDINGS: An endotracheal tube has its tip 12 millimeters above the level of top of the aortic arch. NG tube within the stomach. Mild in the diffuse bilateral pulmonary opacities. The heart is normal size IMPRESSION: Mild improvement in the diffuse bilateral pulmonary opacities An endotracheal tube has its tip 12 millimeters above the level of top of the aortic arch
[2020-07-10] MEDS: ASPIRIN EC 81 MG TAB PO SCH ×2 (08:09→09:00)
[2020-07-10] MEDS: D5W 1,000 ML IV SCH ×2 (08:09→20:12)
[2020-07-10] MEDS: VITAMIN D 1000 UNIT TAB PO SCH (08:09)
[2020-07-10] MEDS: ASCORBIC ACID 500 MG TABLET PO SCH ×3 (08:09→20:13)
[2020-07-10] MEDS: THIAMINE 200 MG/2 ML INJ IVP SCH ×2 (08:09→20:13)
[2020-07-10] MEDS: CALCITROL 0.25 MCG CAP PO SCH (08:09)
[2020-07-10] MEDS: APIXABAN 5 MG TABLET PO SCH ×2 (08:10→09:00)
[2020-07-10] MEDS: METHYLPREDNISOLONE 125 MG INJ IV SCH ×3 (08:10→23:51)
[2020-07-10] MEDS: ZINC SULFATE 220 MG CAP PO SCH (08:10)
[2020-07-10] MEDS: INSULIN 70/30 100 UNITS/ML SQ SCH ×2 (08:10→17:02)
[2020-07-10] MEDS: FAMOTIDINE 20 MG TAB PO SCH (09:07)
[2020-07-10 09:36] LABS: Hematocrit 17.6 % (36.0-45.0)
[2020-07-10] MEDS ORDERED: NA CHLORIDE 0.9% 250 ML ONE ×2 (10:58→15:05)
[2020-07-10] MEDS ORDERED: SODIUM CHLORIDE 0.9% 10ML INJ IV PRN (11:52)
--- NOTE | 2020-07-10 12:18 | P.PN ---
Subjective Date of Service: 07/10/20 Chief Complaint: Respiratory failure, worsening renal failure severe anemia Patient is not doing well this x-ray no change the tracheal tube for this slightly higher renal function is worse patient has now become significantly anemic no history of melenic stools oxygenation is improving Review of Systems is unable to be obtained Physical Examination - Vital Signs Temperature: 97.7 F Blood Pressure: 112/67 Pulse: 84 Respirations: 30 Pulse Ox (%): 99 - Studies Medications List Reviewed: Yes Assessment & Plan - Problems (Diagnosis) (1) Acute respiratory failure due to severe acute respiratory syndrome coronavirus 2 (SARS-CoV-2) infection Current Visit: Yes Status: Acute Plan: Respiratory failure no change in x-ray will advance endotracheal tube agree with D5 water patient is now hypernatremic most likely read renal [place] has underlying GI bleed as well will discontinue aspirin an all anticoagulants transfuse blood wean down on the oxygen medications refused otherwise no change agree with IV Protonix continues to have diarrhea C difficile negative
[2020-07-10] MEDS ORDERED: FUROSEMIDE 20 MG/ 2ML VIAL IV ONE (14:08)
--- NOTE | 2020-07-10 14:20 | P.PN ---
Subjective Date of Service: 07/10/20 Chief Complaint: Respiratory failure, worsening renal failure severe anemia Subjective: Other (Patient remains intubated and sedated. Hemoglobin low this morning.) Physical Examination - Vital Signs Temperature: 97.7 F Blood Pressure: 112/67 Pulse: 84 Respirations: 30 Pulse Ox (%): 99 - Studies Medications List Reviewed: Yes Assessment & Plan Discharge Plan: Home Plan to discharge in: 24 Hours Physician Review Additional Text: Physical exam: Patient remains sedated and intubated. Heart: Regular rate and rhythm Lungs: Patient intubated. FiO2 at 60%. GI: Fecal management system in place Extremities: Lower extremities showed some mild edema Impression: Acute respiratory failure secondary to severe acute respiratory syndrome related to COVID-19 pneumonia Diabetes mellitus type 2 with hyperglycemia Acute on chronic renal failure stage IV with hypernatremia/metabolic acidosis Acute on chronic anemia Diarrhea without evidence of C. difficile colitis Mild protein malnutrition GERD with moderate hiatal hernia Fatty liver Plan: Acute respiratory failure secondary to severe acute respiratory syndrome related to COVID-19 pneumonia: Patient remains intubated and sedated. Continue IV steroids. Patient with anemia. Patient will require blood transfusion. Transfused 2 units of blood to maintain hemoglobin above 7.5. Will give Lasix after each unit. Recheck hemoglobin 1 hour after last transfusion. Continue with water flushes. Nephrology to start D5W due to hypernatremia. We will continue to monitor closely. Overall lungs show improvement. Aspirin, DVT prophylaxis discontinued due to anemia. We will check and monitor for rectal bleeding. No evidence of this at this time. Case discussed in detail with daughter. Diabetes mellitus type 2 with hyperglycemia: Continue to adjust insulin therapy for better control. Patient will be on D5W. May need to further adjust insulin. Acute on chronic renal failure stage IV with hypernatremia/metabolic acidosis: D5W started. Bicarbonate also started. Continue with nephrology recommendation. Acute on chronic anemia: Anticoagulant and aspirin discontinued. Continue tr ansfusion. Maintain hemoglobin above 7.5. Diarrhea without evidence of C. difficile colitis: Patient with fecal management system. C. difficile negative. Mild protein malnutrition: Continue with supplementation. GERD with moderate hiatal hernia: Protonix added. Patient with history of GI bleed in the past as reported by daughter. Continue with transfusion. Will monitor closely. No evidence of GI bleed at this time. Fatty liver: Continue with plan above Time Spent Managing Pts Care (In Minutes): 55
[2020-07-10 20:00] LABS: Hematocrit 23.5 % (36.0-45.0)
[2020-07-10] MEDS: PANTOPRAZOLE 40 MG INJ IVP SCH (20:13)
--- NOTE | 2020-07-10 22:37 | P.PN ---
Date of Service: 07/10/20 Vital Signs Temp Pulse Resp BP Pulse Ox 98.6 F 84 22 H 125/57 L 96 07/10/20 20:00 07/10/20 20:00 07/10/20 20:00 07/10/20 20:00 07/10/20 20:00 Medications Acetaminophen (Acetaminophen 500 Mg Tab) 500 mg PO Q4HP PRN PRN Reason: Pain scale 2-4 (Mild) Last Admin: 07/04/20 08:39 Dose: 500 mg Documented by: Albuterol Sulfate (Albuterol 2.5 Mg/3 Ml Neb Alla) 2.5 mg NEB Q6HP PRN PRN Reason: SHORTNESS OF BREATH Last Admin: 07/03/20 13:48 Dose: 2.5 mg Documented by: Ascorbic Acid (Ascorbic Acid 500 Mg Tablet) 1,000 mg PO TID [facility] Last Admin: 07/10/20 20:13 Dose: 1,000 mg Documented by: Benzonatate (Benzonatate 100 Mg Cap) 100 mg PO TID PRN PRN Reason: COUGH Calcitriol (Calcitrol 0.25 Mcg Cap) 0.5 mcg PO DAILY [facility] Last Admin: 07/10/20 08:09 Dose: 0.5 mcg Documented by: Cholecalciferol (Vitamin D 1000 Unit Tab) 4,000 unit PO DAILY [facility] Last Admin: 07/10/20 08:09 Dose: 4,000 unit Documented by: Dextrose (D50w 25 Gm/50 Ml Vial) 12.5 gm IV PRN PRN; Protocol PRN Reason: HYPOGLYCEMIA Enteral Nutritional Formula (Glucerna 1.5 Arvind 1,000 Ml Bot) 1,000 ml RTH CONT [facility] Fentanyl Citrate (Fentanyl Citr 100 Mcg/2 Ml) 25 mcg IV Q4HP PRN PRN Reason: Pain scale 8-10 (Severe) Last Admin: 07/04/20 07:46 Dose: 25 mcg Documented by: Glucagon (Glucagon 1 Mg/Vial) 1 mg IM 1X PRN; Protocol PRN Reason: HYPOGLYCEMIA Hydromorphone HCl (Hydromorphone Hcl 2 Mg/Ml Inj) 2 mg IV Q4H PRN PRN Reason: Pain scale 8-10 (Severe) Propofol (Diprivan) 1,000 mg in 100 mls @ 0 mls/hr IV PRN PRN; Protocol PRN Reason: SEDATION Last Admin: 07/10/20 17:02 Dose: 100 mls Documented by: Sodium Chloride (Sodium Chloride) 250 mls @ 999 mls/hr IV Q15M PRN PRN Reason: HYPOTENSION Last Admin: 07/04/20 06:08 Dose: 250 mls Documented by: Cisatracurium Besylate 80 mg/ (Sodium Chloride) 200 mls @ 0 mls/hr IV PRN PRN; Protocol PRN Reason: NEUROMUSCULAR BLOCKAGE Last Admin: 07/10/20 02:34 Dose: 200 mls Documented by: Dextrose/Water (Dextrose In Water (1-Liter)) 1,000 mls @ 100 mls/hr IV .Q10H [facility] Last Admin: 07/10/20 20:12 Dose: 1,000 mls Documented by: Insulin Human Isoph/Insulin Regular (Insulin 70/30 100 Units/Ml) 65 unit SQ BIDAC [facility] Last Admin: 07/10/20 17:02 Dose: 65 units Documented by: Insulin Human Regular (Insulin -Regular Human 50 Unit/0.5 Ml Ml) 0 unit SQ Q6H [facility]; Protocol Last Admin: 07/10/20 17:03 Dose: 6 unit Documented by: Loperamide HCl (Loperamide Hcl 2 Mg Capsule) 2 mg FT Q4H PRN PRN Reason: DIARRHEA Last Admin: 07/08/20 13:09 Dose: 2 mg Documented by: Methylprednisolone Sodium Succinate (Methylprednisolone 125 Mg Inj) 80 mg IV Q8H [facility] Last Admin: 07/10/20 15:11 Dose: 80 mg Documented by: Ondansetron HCl (Ondansetron 4 Mg/2 Ml Vial) 4 mg IV Q6HP PRN PRN Reason: NAUSEA / VOMITING Pantoprazole Sodium (Pantoprazole 40 Mg Inj) 40 mg IVP Q12HR [facility]; Protocol Last Admin: 07/10/20 20:13 Dose: 40 mg Documented by: Sodium Bicarbonate (Sodium Bicarb 325 Mg Tab) 650 mg PO Q6H [facility] Last Admin: 07/10/20 20:13 Dose: 650 mg Documented by: Sodium Chloride (Flush Normal Saline 10 Ml) 10 ml IV BID [facility] Last Admin: 07/10/20 20:13 Dose: 10 ml Documented by: Sodium Chloride (Sodium Chloride 0.9% 10ml Inj) 10 ml IV UD PRN PRN Reason: Diluant Sodium Chloride (Sodium Chloride 0.9% 10ml Inj) 10 ml IV UD PRN PRN Reason: Diluant Thiamine HCl (Thiamine 200 Mg/2 Ml Inj) 200 mg IVP BID [facility] Last Admin: 07/10/20 20:13 Dose: 200 mg Documented by: Zinc Sulfate (Zinc Sulfate 220 Mg Cap) 220 mg PO DAILY [facility] Last Admin: 07/10/20 08:10 Dose: 220 mg Documented by: Assessment/ Plan: Nephrology Limited IH/ ROS due to intubation/ sedation No acute events overnight. Vitals, medications, blood work and imaging reviewed in the chart. General: In no apparent distress, Unresponsive HEENT: Atraumatic Neck: Supple Respiratory: Diminished Cardiovascular: Edema 1+, Regular rate/rhythm Gastrointestinal: Soft and benign, Non-distended Musculoskeletal: No clubbing, No contractures Integumentary: No rashes, No cyanosis Patient care >30min Imagings Data: EXAM DESCRIPTION: Randeet Single View07/08/2020 5:25 pm CLINICAL HISTORY: Device placement endotracheal tube placement IMPRESSION: An endotracheal tube has its tip at the level of the top of the aortic arch EXAM DESCRIPTION: CT - Chest For Pe Angio - 07/02/2020 3:15 pm CLINICAL HISTORY: Chest pain. shortness of breath COMPARISON: Chest For Pe Angio dated 01/09/2019 TECHNIQUE: CT angiogram of the pulmonary arteries was performed with MIP. All CT scans are performed using dose optimization technique as appropriate and may include automated exposure control or mA/KV adjustment according to patient size. FINDINGS: No evidence of pulmonary thromboembolism. No acute aortic finding demonstrated. Extensive interstitial and alveolar lung opacities are present bilaterally, greatest in the upper lobes, likely representing pneumonia. No significant pericardial or pleural fluid. No concerning bony finding. Moderate axial hiatal hernia. IMPRESSION: No evidence of pulmonary thromboembolism. Extensive interstitial and alveolar lung opacities bilaterally compatible with COVID-19 infection. EXAM DESCRIPTION: CTAbdomen Pelvis W Contrast - 07/02/2020 3:15 pm CLINICAL HISTORY: Abdominal pain. abdominal pain, flank pain COMPARISON: No comparisons TECHNIQUE: Biphasic CT imaging of the abdomen and pelvis was performed with 100 ml non-ionic IV contrast. All CT scans are performed using dose optimization technique as appropriate and may include automated exposure control or mA/KV adjustment according to patient size. FINDINGS: Mild moderate bibasilar lung opacities are present. Diffuse fatty liver is seen. Moderate axial hiatal hernia. The spleen, pancreas, adrenal glands are within normal limits. Nonobstructing bilateral renal calculi. No bowel obstruction, free air, free fluid or abscess. Moderate stool is retained in the colon. The appendix is normal. No evidence of significant lymphadenopathy. No suspicious bony findings. IMPRESSION: Bilateral nephrolithiasis without hydronephrosis. Diffuse fatty liver. Moderate hiatal hernia. Conclusions/Impression: A/P: Continue the current POC and Medications other than the changes listed. AM Labs PRN. Recommend daily weight. Please see the orders for complete details. >30min patient care LISA in the setting of hypotension CKD III with proteinuria -No NSAIDs -Start D5W@100 Hypernatremia -Continue free water through FT -Start D5W @100 Hypokalemia Acidosis -Continue oral bicarb through FT Hypocalcemia -Continue Calcitriol through FT HTN complicated by hypotension -Hold Losartan DM II with CKD -Continue Insulin 70/30 Severe malnutrition with hypoalbuminemia -Maintain nutrition Anemia in chronic illness -Monitor H&H -Transfuse PRBC COVID-19 PNA Acute hypoxic respiratory failure -Continue Oxygen supplementation -Continue steroids -Continue Vitamin C and Zinc
[2020-07-11] MEDS: propofoL 1,000 MG/100 ML VIAL IV PRN ×2 (03:00→07:59)
[2020-07-11] MEDS: SODIUM BICARB 325 MG TAB PO SCH ×4 (03:00→20:36)
[2020-07-11] MEDS: CISATRACURIUM BESYLATE 80 MG in NA CHLORIDE 0.9% 160 ML IV PRN (05:07)
[2020-07-11 05:15] LABS: Absolute Lymphocytes (CBC) 0.8 K/uL (0.7-4.9); Basophils % 0.2 % (0-1.3); Hematocrit 22.2 % (36.0-45.0); Lymphocytes % 10.3 % (15.3-44.8); MPV 9.2 fL (7.6-11.3); RBC Red Blood Cell Count 2.56 M/uL (3.86-4.86)
[2020-07-11 05:29] LABS: C-Reactive Protein 11.5 mg/L (<3.00); Magnesium 2.8 mg/dL (1.8-2.4); Potassium 4.2 mmol/L (3.5-5.1)
[2020-07-11] MEDS: INSULIN -REGULAR HUMAN 50 UNIT/0.5 ML ML SQ SCH ×4 (05:35→23:58)
[2020-07-11 05:53] LABS: Arterial Blood Carboxyhemoglob 1.1 % (0-1.5); Blood Gas Oxyhemoglobin 95.8 % (94-97); Blood O2 Saturation 98.2 % (92-98.5)
[2020-07-11] MEDS ORDERED: FUROSEMIDE 20 MG/ 2ML VIAL IV PRN (06:20)
[2020-07-11] MEDS: D5W 1,000 ML IV SCH ×3 (07:59→21:14)
[2020-07-11] MEDS: INSULIN 70/30 100 UNITS/ML SQ SCH ×2 (08:28→19:19)
[2020-07-11] MEDS ORDERED: NA CHLORIDE 0.9% 250 ML IV SCH (09:00)
[2020-07-11] MEDS: METHYLPREDNISOLONE 125 MG INJ IV SCH ×2 (09:55→20:36)
[2020-07-11] MEDS: PANTOPRAZOLE 40 MG INJ IVP SCH ×2 (09:55→20:37)
[2020-07-11] MEDS: CALCITROL 0.25 MCG CAP PO SCH (09:55)
[2020-07-11] MEDS: ZINC SULFATE 220 MG CAP PO SCH (09:56)
[2020-07-11] MEDS: VITAMIN D 1000 UNIT TAB PO SCH (09:56)
[2020-07-11] MEDS: ASCORBIC ACID 500 MG TABLET PO SCH ×3 (09:57→20:36)
[2020-07-11] MEDS: THIAMINE 200 MG/2 ML INJ IVP SCH ×2 (10:55→20:37)
[2020-07-11] MEDS: MIDAZOLAM HCL 100 MG in NA CHLORIDE 0.9% 80 ML IV PRN ×2 (11:51→21:05)
--- NOTE | 2020-07-11 13:22 | P.PN ---
Subjective Date of Service: 07/11/20 Chief Complaint: Respiratory failure, worsening renal failure severe anemia Condition stable no evidence of GI bleeding hypernatremia improving Review of Systems is unable to be obtained Physical Examination - Vital Signs Temperature: 98.6 F Blood Pressure: 108/55 Pulse: 64 Respirations: 25 Pulse Ox (%): 96 - Studies Medications List Reviewed: Yes Assessment & Plan - Problems (Diagnosis) (1) Acute respiratory failure due to severe acute respiratory syndrome coronavirus 2 (SARS-CoV-2) infection Current Visit: Yes Status: Acute Plan: Respiratory failure no evidence of GI bleed renal function improving patient is on IV fluids and water flushes currently on 55% FiO2 oxygenation is improving slight decline in her hemoglobin reduce dose of Solu-Medrol chest x-rays ordered wean off propofol start Levophed so far no clinical evidence of GI bleeding tolerating tube feeds patient still has diarrhea
[2020-07-11] MEDS: LOPERAMIDE HCL 2 MG CAPSULE FT PRN (14:56)
--- NOTE | 2020-07-11 15:32 | P.PN ---
Subjective Date of Service: 07/11/20 Chief Complaint: Respiratory failure, worsening renal failure severe anemia Subjective: Other (Patient sedated and intubated.) Physical Examination - Vital Signs Temperature: 98.6 F Blood Pressure: 104/51 Pulse: 82 Respirations: 25 Pulse Ox (%): 96 - Studies Medications List Reviewed: Yes Assessment & Plan Discharge Plan: Home Plan to discharge in: Greater than 2 days Physician Review Additional Text: Physical exam: Patient remains sedated and intubated. Heart: Regular rate and rhythm Lungs: Patient intubated. FiO2 at 55 %. GI: Fecal management system in place Extremities: Lower extremities showed some mild edema Impression: Acute respiratory failure secondary to severe acute respiratory syndrome related to COVID-19 pneumonia Diabetes mellitus type 2 with hyperglycemia Acute on chronic renal failure stage IV with hypernatremia/metabolic acidosis Acute on chronic anemia Diarrhea without evidence of C. difficile colitis Mild protein malnutrition GERD with moderate hiatal hernia Fatty liver Plan: Acute respiratory failure secondary to severe acute respiratory syndrome related to COVID-19 pneumonia: Patient remains intubated and sedated. Continue IV steroids. Patient still anemic. Patient has received 2 units of blood. Hemoglobin around 7.5. Will transfuse 1 unit to maintain hemoglobin above 7.5. We will continue to monitor closely. Nephrology continues with free water. Continue with nephrology and pulmonology recommendations. Will monitor closely. Diabetes mellitus type 2 with hyperglycemia: Continue to adjust insulin therapy for better control. Patient will be on D5W. May need to further adjust insulin. Acute on chronic renal failure stage IV with hypernatremia/metabolic acidosis: Continue with nephrology recommendation. Patient on D5W and bicarbonate. Acute on chronic anemia: Anticoagulant and aspirin discontinued. Continue transfusion. Maintain hemoglobin above 7.5. Diarrhea without evidence of C. difficile colitis: Patient with fecal management system. C. difficile negative. Mild protein malnutrition: Continue with supplementation. GERD with moderate hiatal hernia: Protonix added. Patient with history of GI bleed in the past as reported by daughter. Continue with transfusion. Will monitor closely. No evidence of GI bleed at this time. Fatty liver: Continue with plan above Time Spent Managing Pts Care (In Minutes): 55
[2020-07-11 15:46] LABS: Arterial Blood Carboxyhemoglob 1.2 % (0-1.5); Blood O2 Saturation 92.7 % (92-98.5)
[2020-07-11 15:50] LABS: Blood Gas Oxyhemoglobin 90.5 % (94-97)
--- NOTE | 2020-07-11 19:28 | P.PN ---
Date of Service: 07/11/20 Vital Signs Temp Pulse Resp BP Pulse Ox 98.3 F 77 25 H 118/54 L 96 07/11/20 16:00 07/11/20 18:00 07/11/20 18:00 07/11/20 18:00 07/11/20 18:00 Medications Acetaminophen (Acetaminophen 500 Mg Tab) 500 mg PO Q4HP PRN PRN Reason: Pain scale 2-4 (Mild) Last Admin: 07/04/20 08:39 Dose: 500 mg Documented by: Ascorbic Acid (Ascorbic Acid 500 Mg Tablet) 1,000 mg PO TID [facility] Last Admin: 07/11/20 14:55 Dose: 1,000 mg Documented by: Benzonatate (Benzonatate 100 Mg Cap) 100 mg PO TID PRN PRN Reason: COUGH Calcitriol (Calcitrol 0.25 Mcg Cap) 0.5 mcg PO DAILY [facility] Last Admin: 07/11/20 09:55 Dose: 0.5 mcg Documented by: Cholecalciferol (Vitamin D 1000 Unit Tab) 4,000 unit PO DAILY [facility] Last Admin: 07/11/20 09:56 Dose: 4,000 unit Documented by: Dextrose (D50w 25 Gm/50 Ml Vial) 12.5 gm IV PRN PRN; Protocol PRN Reason: HYPOGLYCEMIA Enteral Nutritional Formula (Glucerna 1.5 Arvind 1,000 Ml Bot) 1,000 ml RTH CONT [facility] Fentanyl Citrate (Fentanyl Citr 100 Mcg/2 Ml) 25 mcg IV Q4HP PRN PRN Reason: Pain scale 8-10 (Severe) Last Admin: 07/04/20 07:46 Dose: 25 mcg Documented by: Glucagon (Glucagon 1 Mg/Vial) 1 mg IM 1X PRN; Protocol PRN Reason: HYPOGLYCEMIA Hydromorphone HCl (Hydromorphone Hcl 2 Mg/Ml Inj) 2 mg IV Q4H PRN PRN Reason: Pain scale 8-10 (Severe) Propofol (Diprivan) 1,000 mg in 100 mls @ 0 mls/hr IV PRN PRN; Protocol PRN Reason: SEDATION Last Admin: 07/11/20 07:59 Dose: 100 mls Documented by: Sodium Chloride (Sodium Chloride) 250 mls @ 999 mls/hr IV Q15M PRN PRN Reason: HYPOTENSION Last Admin: 07/04/20 06:08 Dose: 250 mls Documented by: Cisatracurium Besylate 80 mg/ (Sodium Chloride) 200 mls @ 0 mls/hr IV PRN PRN; Protocol PRN Reason: NEUROMUSCULAR BLOCKAGE Last Admin: 07/11/20 05:07 Dose: 200 mls Documented by: Dextrose/Water (Dextrose In Water (1-Liter)) 1,000 mls @ 100 mls/hr IV .Q10H [facility] Last Admin: 07/11/20 14:00 Dose: Not Given Documented by: Midazolam HCl 100 mg/ Sodium (Chloride) 100 mls @ 0 mls/hr IV PRN PRN; Protocol PRN Reason: SEDATION Last Admin: 07/11/20 11:51 Dose: 100 mls Documented by: Sodium Chloride (Sodium Chloride) 250 mls @ 0 mls/hr IV .Q0M [facility] Last Admin: 07/11/20 08:25 Dose: 250 mls Documented by: Insulin Human Isoph/Insulin Regular (Insulin 70/30 100 Units/Ml) 65 unit SQ BIDAC [facility] Last Admin: 07/11/20 19:19 Dose: 65 units Documented by: Insulin Human Regular (Insulin -Regular Human 50 Unit/0.5 Ml Ml) 0 unit SQ Q6H [facility]; Protocol Last Admin: 07/11/20 19:20 Dose: 8 unit Documented by: Loperamide HCl (Loperamide Hcl 2 Mg Capsule) 2 mg FT Q4H PRN PRN Reason: DIARRHEA Last Admin: 07/11/20 14:56 Dose: 2 mg Documented by: Methylprednisolone Sodium Succinate (Methylprednisolone 125 Mg Inj) 80 mg IV Q12HR [facility] Ondansetron HCl (Ondansetron 4 Mg/2 Ml Vial) 4 mg IV Q6HP PRN PRN Reason: NAUSEA / VOMITING Pantoprazole Sodium (Pantoprazole 40 Mg Inj) 40 mg IVP Q12HR [facility]; Protocol Last Admin: 07/11/20 09:55 Dose: 40 mg Documented by: Sodium Bicarbonate (Sodium Bicarb 325 Mg Tab) 650 mg PO Q6H [facility] Last Admin: 07/11/20 14:56 Dose: 650 mg Documented by: Sodium Chloride (Flush Normal Saline 10 Ml) 10 ml IV BID [facility] Last Admin: 07/11/20 09:59 Dose: 10 ml Documented by: Sodium Chloride (Sodium Chloride 0.9% 10ml Inj) 10 ml IV UD PRN PRN Reason: Diluant Sodium Chloride (Sodium Chloride 0.9% 10ml Inj) 10 ml IV UD PRN PRN Reason: Diluant Thiamine HCl (Thiamine 200 Mg/2 Ml Inj) 200 mg IVP BID [facility] Last Admin: 07/11/20 10:55 Dose: 200 mg Documented by: Zinc Sulfate (Zinc Sulfate 220 Mg Cap) 220 mg PO DAILY [facility] Last Admin: 07/11/20 09:56 Dose: 220 mg Documented by: Assessment/ Plan: Nephrology Limited IH/ ROS due to intubation/ sedation No acute events overnight. Vitals, medications, blood work and imaging reviewed in the chart. General: In no apparent distress, Unresponsive HEENT: Atraumatic Neck: Supple Respiratory: Diminished Cardiovascular: Edema 1+, Regular rate/rhythm Gastrointestinal: Soft and benign, Non-distended Musculoskeletal: No clubbing, No contractures Integumentary: No rashes, No cyanosis Patient care >30min Imagings Data: [facility] CLINICAL HISTORY: Device placement endotracheal tube placement IMPRESSION: An endotracheal tube has its tip at the level of the top of the aortic arch EXAM DESCRIPTION: CT - Chest For Pe Angio - 07/02/2020 3:15 pm CLINICAL HISTORY: Chest pain. shortness of breath COMPARISON: Chest For Pe Angio dated 01/09/2019 TECHNIQUE: CT angiogram of the pulmonary arteries was performed with MIP. All CT scans are performed using dose optimization technique as appropriate and may include automated exposure control or mA/KV adjustment according to patient size. FINDINGS: No evidence of pulmonary thromboembolism. No acute aortic finding demonstrated. Extensive interstitial and alveolar lung opacities are present bilaterally, greatest in the upper lobes, likely representing pneumonia. No significant pericardial or pleural fluid. No concerning bony finding. Moderate axial hiatal hernia. IMPRESSION: No evidence of pulmonary thromboembolism. Extensive interstitial and alveolar lung opacities bilaterally compatible with COVID-19 infection. EXAM DESCRIPTION: CTAbdomen Pelvis W Contrast - 07/02/2020 3:15 pm CLINICAL HISTORY: Abdominal pain. abdominal pain, flank pain COMPARISON: No comparisons TECHNIQUE: Biphasic CT imaging of the abdomen and pelvis was performed with 100 ml non-ionic IV contrast. All CT scans are performed using dose optimization technique as appropriate and may include automated exposure control or mA/KV adjustment according to patient size. FINDINGS: Mild moderate bibasilar lung opacities are present. Diffuse fatty liver is seen. Moderate axial hiatal hernia. The spleen, pancreas, adrenal glands are within normal limits. Nonobstructing bilateral renal calculi. No bowel obstruction, free air, free fluid or abscess. Moderate stool is retained in the colon. The appendix is normal. No evidence of significant lymphadenopathy. No suspicious bony findings. IMPRESSION: Bilateral nephrolithiasis without hydronephrosis. Diffuse fatty liver. Moderate hiatal hernia. Conclusions/Impression: A/P: Continue the current POC and Medications other than the changes listed. AM Labs PRN. Recommend daily weight. Please see the orders for complete details. >30min patient care LISA in the setting of hypotension CKD III with proteinuria -No NSAIDs -Continue D5W@100 Hypernatremia -Continue free water through FT -Continue D5W @100 Hypokalemia Acidosis -Continue oral bicarb through FT Hypocalcemia -Continue Calcitriol through FT HTN complicated by hypotension -Hold Losartan DM II with CKD -Continue Insulin 70/30 Severe malnutrition with hypoalbuminemia -Maintain nutrition Anemia in chronic illness -Monitor H&H -Transfuse PRBC COVID-19 PNA Acute hypoxic respiratory failure -Continue Oxygen supplementation -Continue steroids -Continue Vitamin C and Zinc
[2020-07-11 20:38] LABS: Hematocrit 24.8 % (36.0-45.0)
[2020-07-11] MEDS: GLUCERNA 1.5 CAL 1,000 ML BOT RTH SCH (22:20)
[2020-07-12] MEDS: SODIUM BICARB 325 MG TAB PO SCH ×4 (02:23→20:24)
[2020-07-12] MEDS: LOPERAMIDE HCL 2 MG CAPSULE FT PRN (02:23)
[2020-07-12] MEDS: INSULIN -REGULAR HUMAN 50 UNIT/0.5 ML ML SQ SCH ×3 (05:36→16:54)
[2020-07-12] MEDS: D5W 1,000 ML IV SCH ×2 (05:52→17:11)
[2020-07-12 05:53] LABS: Arterial Blood Carboxyhemoglob 1.2 % (0-1.5); Blood Gas Oxyhemoglobin 95.6 % (94-97); Blood O2 Saturation 98.1 % (92-98.5)
[2020-07-12] MEDS: MIDAZOLAM HCL 100 MG in NA CHLORIDE 0.9% 80 ML IV PRN ×2 (06:24→17:35)
[2020-07-12 07:00] LABS: Absolute Lymphocytes (CBC) 0.6 K/uL (0.7-4.9); Basophils % 0.5 % (0-1.3); Hematocrit 24.3 % (36.0-45.0); MPV 9.2 fL (7.6-11.3); RBC Red Blood Cell Count 2.81 M/uL (3.86-4.86)
[2020-07-12 07:23] LABS: C-Reactive Protein 8.07 mg/L (<3.00); Ferritin 165.3 ng/mL (8-388); Magnesium 2.6 mg/dL (1.8-2.4); Potassium 4.4 mmol/L (3.5-5.1)
[2020-07-12] MEDS: THIAMINE 200 MG/2 ML INJ IVP SCH ×2 (08:08→20:24)
[2020-07-12] MEDS: VITAMIN D 1000 UNIT TAB PO SCH (08:08)
[2020-07-12] MEDS: ASCORBIC ACID 500 MG TABLET PO SCH ×3 (08:08→20:24)
[2020-07-12] MEDS: CALCITROL 0.25 MCG CAP PO SCH (08:08)
[2020-07-12] MEDS: ZINC SULFATE 220 MG CAP PO SCH (08:08)
[2020-07-12] MEDS: INSULIN 70/30 100 UNITS/ML SQ SCH ×2 (08:09→16:54)
[2020-07-12] MEDS: PANTOPRAZOLE 40 MG INJ IVP SCH ×2 (08:09→20:24)
[2020-07-12] MEDS: METHYLPREDNISOLONE 125 MG INJ IV SCH (08:09)
[2020-07-12 08:40] LABS: Blood Morphology Comment NOT SEEN (NOT SEEN); Platelet Estimate ADEQ
--- NOTE | 2020-07-12 08:51 | RAD REPORT ---
EXAM DESCRIPTION: RAD - Chest Single View - 07/12/2020 5:41 am CLINICAL HISTORY: Respiratory failure Chest pain. COMPARISON: Chest Single View dated 07/10/2020; Chest Single View dated 07/09/2020; Chest Single View dated 07/09/2020; Chest Single View dated 07/08/2020 FINDINGS: Portable technique limits examination quality. Tip of the endotracheal tube is at the level of the aortic arch. Enteric tube descends into the stoma ch. Bilateral interstitial pulmonary opacities appear stable to slightly improved since prior study. Cardiac size is normal.
--- NOTE | 2020-07-12 10:48 | P.PN ---
Subjective Date of Service: 07/12/20 Chief Complaint: Respiratory failure, worsening renal failure severe anemia Subjective: Other (patient is sedated and intubated) Physical Examination - Vital Signs Temperature: 97.4 F Blood Pressure: 159/79 Pulse: 53 Respirations: 18 Pulse Ox (%): 95 - Studies Medications List Reviewed: Yes Assessment & Plan Discharge Plan: Home Plan to discharge in: Greater than 2 days Physician Review Additional Text: Physical exam: Patient remains sedated and intubated. Heart: Regular rate and rhythm Lungs: Patient intubated. FiO2 at 40 %. GI: Fecal management system in place Extremities: Lower extremities showed some mild edema Impression: Acute respiratory failure secondary to severe acute respiratory syndrome related to COVID-19 pneumonia Diabetes mellitus type 2 with hyperglycemia Acute on chronic renal failure stage IV with hypernatremia/metabolic acidosis Acute on chronic anemia Diarrhea without evidence of C. difficile colitis Mild protein malnutrition GERD with moderate hiatal hernia Fatty liver Plan: Acute respiratory failure secondary to severe acute respiratory syndrome related to COVID-19 pneumonia: Patient improved. Patient has received 3 units of blood. We will continue to monitor closely. Continue IV steroids. Insulin adjusted. Maintain hemoglobin above 7.5. Hypernatremia improved. Continue with nephrology recommendations. Pulmonology plans to wean off sedation to hopefully extubate. We will continue to monitor closely. Case updated with daughter. Diabetes mellitus type 2 with hyperglycemia: Continue to adjust insulin therapy for better control. Patient will be on D5W. May need to further adjust insulin. Acute on chronic renal failure stage IV with hypernatremia/metabolic acidosis: Continue with nephrology recommendation. Patient on D5W and bicarbonate. Acute on chronic anemia: Anticoagulant and aspirin discontinued. Patient has received 3 units of blood. Maintain hemoglobin above 7.5. Diarrhea without evidence of C. difficile colitis: Stable. C. difficile negative. Mild protein malnutrition: Continue with supplementation. GERD with moderate hiatal hernia: Protonix added. Patient with history of GI bleed in the past as reported by daughter. Continue with transfusion. Will monitor closely. No evidence of GI bleed at this time. Fatty liver: Continue with plan above Time Spent Managing Pts Care (In Minutes): 55
--- NOTE | 2020-07-12 11:46 | P.PN ---
Subjective Date of Service: 07/12/20 Chief Complaint: Respiratory failure Respiratory failure patient is improving will plan to wean her off sedation reduce the level of peep Review of Systems is unable to be obtained Physical Examination - Vital Signs Temperature: 97.4 F Blood Pressure: 159/79 Pulse: 53 Respirations: 18 Pulse Ox (%): 95 - Studies Medications List Reviewed: Yes Assessment & Plan - Problems (Diagnosis) (1) Acute respiratory failure due to severe acute respiratory syndrome coronavirus 2 (SARS-CoV-2) infection Current Visit: Yes Status: Acute Plan: Respiratory failure patient is doing well oxygenation satisfactory will plan to wean off the sedation paralytics decrease peep to 10 renal function is improving continue with IV fluids hemoglobin is stable there is no evidence of GI bleed no melenic stools or hematemesis as sitter restarting Lovenox 40 mg daily patient is on BiPAP carb can Dc
[2020-07-12 11:56] LABS: C.diff Antigen/Toxin Ag neg : Tox neg (NEG : NEG)
[2020-07-12 15:28] LABS: Hematocrit 24.4 % (36.0-45.0)
--- NOTE | 2020-07-12 19:12 | P.PN ---
Date of Service: 07/12/20 Vital Signs Temp Pulse Resp BP Pulse Ox 97.2 F 59 22 H 158/76 H 100 07/12/20 16:00 07/12/20 18:00 07/12/20 18:00 07/12/20 18:00 07/12/20 17:00 Medications Acetaminophen (Acetaminophen 500 Mg Tab) 500 mg PO Q4HP PRN PRN Reason: Pain scale 2-4 (Mild) Last Admin: 07/04/20 08:39 Dose: 500 mg Documented by: Ascorbic Acid (Ascorbic Acid 500 Mg Tablet) 1,000 mg PO TID [facility] Last Admin: 07/12/20 14:08 Dose: 1,000 mg Documented by: Benzonatate (Benzonatate 100 Mg Cap) 100 mg PO TID PRN PRN Reason: COUGH Calcitriol (Calcitrol 0.25 Mcg Cap) 0.5 mcg PO DAILY [facility] Last Admin: 07/12/20 08:08 Dose: 0.5 mcg Documented by: Cholecalciferol (Vitamin D 1000 Unit Tab) 4,000 unit PO DAILY [facility] Last Admin: 07/12/20 08:08 Dose: 4,000 unit Documented by: Dextrose (D50w 25 Gm/50 Ml Vial) 12.5 gm IV PRN PRN; Protocol PRN Reason: HYPOGLYCEMIA Enteral Nutritional Formula (Glucerna 1.5 Arvind 1,000 Ml Bot) 1,000 ml RTH CONT [facility] Last Admin: 07/11/20 22:20 Dose: 1,000 ml Documented by: Fentanyl Citrate (Fentanyl Citr 100 Mcg/2 Ml) 25 mcg IV Q4HP PRN PRN Reason: Pain scale 8-10 (Severe) Last Admin: 07/04/20 07:46 Dose: 25 mcg Documented by: Glucagon (Glucagon 1 Mg/Vial) 1 mg IM 1X PRN; Protocol PRN Reason: HYPOGLYCEMIA Hydromorphone HCl (Hydromorphone Hcl 2 Mg/Ml Inj) 2 mg IV Q4H PRN PRN Reason: Pain scale 8-10 (Severe) Propofol (Diprivan) 1,000 mg in 100 mls @ 0 mls/hr IV PRN PRN; Protocol PRN Reason: SEDATION Last Admin: 07/11/20 07:59 Dose: 100 mls Documented by: Sodium Chloride (Sodium Chloride) 250 mls @ 999 mls/hr IV Q15M PRN PRN Reason: HYPOTENSION Last Admin: 07/04/20 06:08 Dose: 250 mls Documented by: Cisatracurium Besylate 80 mg/ (Sodium Chloride) 200 mls @ 0 mls/hr IV PRN PRN; Protocol PRN Reason: NEUROMUSCULAR BLOCKAGE Last Admin: 07/11/20 05:07 Dose: 200 mls Documented by: Dextrose/Water (Dextrose In Water (1-Liter)) 1,000 mls @ 100 mls/hr IV .Q10H [facility] Last Admin: 07/12/20 17:11 Dose: 1,000 mls Documented by: Midazolam HCl 100 mg/ Sodium (Chloride) 100 mls @ 0 mls/hr IV PRN PRN; Protocol PRN Reason: SEDATION Last Admin: 07/12/20 17:35 Dose: 100 mls Documented by: Sodium Chloride (Sodium Chloride) 250 mls @ 0 mls/hr IV .Q0M [facility] Last Admin: 07/11/20 08:25 Dose: 250 mls Documented by: Insulin Human Isoph/Insulin Regular (Insulin 70/30 100 Units/Ml) 70 unit SQ BIDAC [facility] Last Admin: 07/12/20 16:54 Dose: 70 units Documented by: Insulin Human Regular (Insulin -Regular Human 50 Unit/0.5 Ml Ml) 0 unit SQ Q6H [facility]; Protocol Last Admin: 07/12/20 16:54 Dose: 10 unit Documented by: Loperamide HCl (Loperamide Hcl 2 Mg Capsule) 2 mg FT Q4H PRN PRN Reason: DIARRHEA Last Admin: 07/12/20 02:23 Dose: 2 mg Documented by: Methylprednisolone Sodium Succinate (Methylprednisolone 40 Mg Inj) 40 mg IV Q12HR [facility] Ondansetron HCl (Ondansetron 4 Mg/2 Ml Vial) 4 mg IV Q6HP PRN PRN Reason: NAUSEA / VOMITING Pantoprazole Sodium (Pantoprazole 40 Mg Inj) 40 mg IVP Q12HR [facility]; Protocol Last Admin: 07/12/20 08:09 Dose: 40 mg Documented by: Sodium Bicarbonate (Sodium Bicarb 325 Mg Tab) 650 mg PO Q6H [facility] Last Admin: 07/12/20 14:08 Dose: 650 mg Documented by: Sodium Chloride (Flush Normal Saline 10 Ml) 10 ml IV BID [facility] Last Admin: 07/12/20 08:10 Dose: 10 ml Documented by: Sodium Chloride (Sodium Chloride 0.9% 10ml Inj) 10 ml IV UD PRN PRN Reason: Diluant Sodium Chloride (Sodium Chloride 0.9% 10ml Inj) 10 ml IV UD PRN PRN Reason: Diluant Thiamine HCl (Thiamine 200 Mg/2 Ml Inj) 200 mg IVP BID [facility] Last Admin: 07/12/20 08:08 Dose: 200 mg Documented by: Zinc Sulfate (Zinc Sulfate 220 Mg Cap) 220 mg PO DAILY [facility] Last Admin: 07/12/20 08:08 Dose: 220 mg Documented by: Assessment/ Plan: Nephrology Limited IH/ ROS due to intubation/ sedation Nurse reports patient is improving with good urine output. No acute events overnight. Vitals, medications, blood work and imaging reviewed in the chart. General: In no apparent distress, Unresponsive HEENT: Atraumatic Neck: Supple Respiratory: Diminished Cardiovascular: Edema 1+, Regular rate/rhythm Gastrointestinal: Soft and benign, Non-distended Musculoskeletal: No clubbing, No contractures Integumentary: No rashes, No cyanosis Patient care >30min Imagings Data: EXAM DESCRIPTION: RADChest Single View07/08/2020 5:25 pm CLINICAL HISTORY: Device placement endotracheal tube placement IMPRESSION: An endotracheal tube has its tip at the level of the top of the aortic arch EXAM DESCRIPTION: CT - Chest For Pe Angio - 07/02/2020 3:15 pm CLINICAL HISTORY: Chest pain. shortness of breath COMPARISON: Chest For Pe Angio dated 01/09/2019 TECHNIQUE: CT angiogram of the pulmonary arteries was performed with MIP. All CT scans are performed using dose optimization technique as appropriate and may include automated exposure control or mA/KV adjustment according to patient size. FINDINGS: No evidence of pulmonary thromboembolism. No acute aortic finding demonstrated. Extensive interstitial and alveolar lung opacities are present bilaterally, greatest in the upper lobes, likely representing pneumonia. No significant pericardial or pleural fluid. No concerning bony finding. Moderate axial hiatal hernia. IMPRESSION: No evidence of pulmonary thromboembolism. Extensive interstitial and alveolar lung opacities bilaterally compatible with COVID-19 infection. EXAM DESCRIPTION: CTAbdomen Pelvis W Contrast - 07/02/2020 3:15 pm CLINICAL HISTORY: Abdominal pain. abdominal pain, flank pain COMPARISON: No comparisons TECHNIQUE: Biphasic CT imaging of the abdomen and pelvis was performed with 100 ml non-ionic IV contrast. All CT scans are performed using dose optimization technique as appropriate and may include automated exposure control or mA/KV adjustment according to patient size. FINDINGS: Mild moderate bibasilar lung opacities are present. Diffuse fatty liver is seen. Moderate axial hiatal hernia. The spleen, pancreas, adrenal glands are within normal limits. Nonobstructing bilateral renal calculi. No bowel obstruction, free air, free fluid or abscess. Moderate stool is retained in the colon. The appendix is normal. No evidence of significant lymphadenopathy. No suspicious bony findings. IMPRESSION: Bilateral nephrolithiasis without hydronephrosis. Diffuse fatty liver. Moderate hiatal hernia. Conclusions/Impression: A/P: Continue the current POC and Medications other than the changes listed. AM Labs PRN. Recommend daily weight. Please see the orders for complete details. >30min patient care LISA in the setting of hypotension CKD III with proteinuria -No NSAIDs -Continue D5W@100 Hypernatremia -Continue D5W @100 Hypokalemia Acidosis -Continue oral bicarb Hypocalcemia -Continue Calcitriol HTN complicated by hypotension -Hold Losartan DM II with CKD -Continue Insulin 70/30 Severe malnutrition with hypoalbuminemia -Maintain nutrition -IV albumin as needed Anemia in chronic illness -Monitor H&H -Transfuse PRBC COVID-19 PNA Acute hypoxic respiratory failure -Continue Oxygen supplementation -Continue steroids -Continue Vitamin C and Zinc
[2020-07-12] MEDS: METHYLPREDNISOLONE 40 MG INJ IV SCH (20:24)
[2020-07-12] MEDS: GLUCERNA 1.5 CAL 1,000 ML BOT RTH SCH (20:26)
[2020-07-13] MEDS: INSULIN -REGULAR HUMAN 50 UNIT/0.5 ML ML SQ SCH ×5 (00:14→23:36)
[2020-07-13] MEDS: MIDAZOLAM HCL 100 MG in NA CHLORIDE 0.9% 80 ML IV PRN ×3 (02:21→22:53)
[2020-07-13] MEDS: D5W 1,000 ML IV SCH (02:21)
[2020-07-13] MEDS: SODIUM BICARB 325 MG TAB PO SCH ×2 (02:23→08:05)
[2020-07-13] MEDS ORDERED: FAMOTIDINE 20 MG/2 ML VIAL IV ONE ×2 (02:37→19:28)
[2020-07-13 05:55] LABS: C-Reactive Protein 10.6 mg/L (<3.00); Ferritin 181.2 ng/mL (8-388); Potassium 4.9 mmol/L (3.5-5.1)
[2020-07-13 06:00] LABS: Arterial Blood Carboxyhemoglob 1.6 % (0-1.5); Blood Gas Oxyhemoglobin 89.2 % (94-97); Blood O2 Saturation 91.8 % (92-98.5)
--- NOTE | 2020-07-13 08:03 | RAD REPORT ---
EXAM DESCRIPTION: RAD - Chest Single View - 07/13/2020 6:46 am CLINICAL HISTORY: Respiratory failure COMPARISON: Portable July 12 TECHNIQUE: AP portable chest image was obtained 07/13/2020 6:46 am . FINDINGS: Endotracheal tube tip is top of the aortic arch approximately 4.5 cm above the kimi. Pos itioning is not changed. Enteric tube is in place. Tip of the tube is off the field of view. Side hol e of this tubing is at the GE junction. Bilateral interstitial and alveolar opacities are present similar or slightly worse than the prior da y study. Apparent worsening may be due to the current exam more shallow inspiratory effort. There has been no improvement. Heart and vasculature are normal. No measurable pleural effusion and no pneumothorax. No acute bony abnormality seen. No acute aortic findings suspected. IMPRESSION: No improvement in the lung parenchymal pattern. Apparent slight worsening may be due to a more shallow inspiratory effort. Tubes and lines are stable.
[2020-07-13] MEDS: VITAMIN D 1000 UNIT TAB PO SCH (08:05)
[2020-07-13] MEDS: THIAMINE 200 MG/2 ML INJ IVP SCH ×2 (08:05→20:58)
[2020-07-13] MEDS: ASCORBIC ACID 500 MG TABLET PO SCH ×3 (08:07→20:58)
[2020-07-13] MEDS: ZINC SULFATE 220 MG CAP PO SCH (08:07)
[2020-07-13] MEDS: CALCITROL 0.25 MCG CAP PO SCH (08:07)
[2020-07-13] MEDS: METHYLPREDNISOLONE 40 MG INJ IV SCH ×2 (08:07→20:58)
[2020-07-13] MEDS: PANTOPRAZOLE 40 MG INJ IVP SCH ×2 (08:07→21:04)
[2020-07-13] MEDS: INSULIN 70/30 100 UNITS/ML SQ SCH ×2 (08:08→16:45)
--- NOTE | 2020-07-13 10:38 | P.PN ---
Subjective Date of Service: 07/13/20 (TV) Chief Complaint: Respiratory failure Improving. No change Physical Examination - Vital Signs Temperature: 97.2 F Blood Pressure: 126/68 Pulse: 57 Respirations: 28 Pulse Ox (%): 90 - Studies Medications List Reviewed: Yes Assessment & Plan - Problems (Diagnosis) (1) Acute respiratory failure due to severe acute respiratory syndrome coronavirus 2 (SARS-CoV-2) infection Current Visit: Yes Status: Acute Plan: Resp failure. Start weanig off suzanne. CXRY rev. ET sat. No change. Change to SIMV and PS. HGB stable. Cahgne to pepcid. DC bicarboante for now Renal fucntion has improved DC IV fluids. Hypernatremia corected. CW NG flushes NE of GIB resume Lovenox
[2020-07-13] MEDS: ENOXAPARIN 40 MG/0.4 ML SQ SCH (11:07)
[2020-07-13] MEDS: FAMOTIDINE 20 MG TAB PO SCH (11:07)
--- NOTE | 2020-07-13 13:05 | P.PN ---
Subjective Date of Service: 07/13/20 Chief Complaint: Respiratory failure Subjective: Improving, Doing well Physical Examination - Vital Signs Temperature: 97.5 F Blood Pressure: 132/64 Pulse: 69 Respirations: 31 Pulse Ox (%): 94 - Studies Medications List Reviewed: Yes Assessment & Plan Discharge Plan: Home Plan to discharge in: Greater than 2 days Physician Review Additional Text: Physical exam: Patient remains intubated and less sedated. Heart: Regular rate and rhythm Lungs: Patient intubated. FiO2 at 40 %. GI: Soft nontender nondistended Extremities: Lower extremities showed some mild edema Impression: Acute respiratory failure secondary to severe acute respiratory syndrome related to COVID-19 pneumonia Diabetes mellitus type 2 with hyperglycemia Acute on chronic renal failure stage IV with hypernatremia/metabolic acidosis Acute on chronic anemia Diarrhea without evidence of C. difficile colitis Mild protein malnutrition GERD with moderate hiatal hernia Fatty liver Plan: Acute respiratory failure secondary to severe acute respiratory syndrome related to COVID-19 pneumonia: Patient remains intubated and slightly sedated. Overall improved. Hemoglobin stable after 3 units of blood given. No evidence of GI bleed. Spoke with pulmonology today. Pulmonology plans to restart Lovenox at DVT prophylaxis. Continue Pepcid. Medications adjusted. We will continue to monitor closely. Pulmonology plans to do breathing trial and wean off ventilator. Continue to monitor closely. Will update family. Diabetes mellitus type 2 with hyperglycemia: Continue to adjust insulin therapy for better control. Accu-Cheks in place. Acute on chronic renal failure stage IV with hypernatremia/metabolic acidosis: Continue with nephrology recommendation. Continue with nephrology recommenda tions. Acute on chronic anemia: Hemoglobin stable. Patient has received 3 units of blood. Maintain hemoglobin above 7.5. Diarrhea without evidence of C. difficile colitis: Stable. C. difficile negative. Mild protein malnutrition: Continue with supplementation. GERD with moderate hiatal hernia: Pulmonology recommends to discontinue Protonix and use Pepcid instead. Patient with history of GI bleed in the past as reported by daughter. Patient has received 3 units of blood. No evidence of active bleed. Fatty liver: Continue with plan above Time Spent Managing Pts Care (In Minutes): 55
--- NOTE | 2020-07-13 18:02 | PN ---
Subjective: The patient is seen in the intensive care unit in room 1A. The patient is intubated. S he is sedated. She is currently requiring a vent support. She has improved from her kidney point of view. However, the bicarb has improved. She is currently off the IVF. She is also improved in her sodium level. Objective: Vital Signs: The patient's vitals are reasonably stable currently with her being on the ventilator. Her O2 sats are in the low 90 range. She has a blood pressure of about 126/68, last blo od pressure currently also in the 130 systolic range. Her pulse is around 60. Lungs: Anteriorly so und clear. Abdomen: Soft. Extremities: Do reveal edema bilaterally. Laboratory Data: Lab data is reviewed. Sodium has gone from 144 to 140, potassium 4.9, chloride is 108, bicarb is 24, BUN and creatinine have improved from 102/1.66 to 90/1.36. Assessment And Plan: Acute kidney injury in the setting of COVID pneumonia. The patient with respir atory failure. At this point, clinically looks like she is still in critical condition. However, he r renal function does seem to have improved. At this point, I agree with Dr. Ross regarding disco ntinuing IV fluids. Her hyponatremia and bicarb are corrected but continue to monitor closely. If b lood pressure goes up and/or the patient has more difficulty on the vent, we would consider initiatin g Lasix. I have discussed this also with the nurse. /WILLARD Voice ID: [id number] Report ID: [id number]
[2020-07-13] MEDS: LOPERAMIDE HCL 2 MG CAPSULE FT PRN (21:39)
[2020-07-14] MEDS: INSULIN -REGULAR HUMAN 50 UNIT/0.5 ML ML SQ SCH ×4 (06:22→23:36)
[2020-07-14] MEDS: GLUCERNA 1.5 CAL 1,000 ML BOT RTH SCH (06:22)
[2020-07-14 06:34] LABS: Absolute Lymphocytes (CBC) 0.8 K/uL (0.7-4.9); Basophils % 0.2 % (0-1.3); Hematocrit 27.9 % (36.0-45.0); Lymphocytes % 6.1 % (15.3-44.8); MPV 9.7 fL (7.6-11.3); RBC Red Blood Cell Count 3.21 M/uL (3.86-4.86)
[2020-07-14 08:04] LABS: C-Reactive Protein 22.1 mg/L (<3.00); Ferritin 202.2 ng/mL (8-388)
[2020-07-14] MEDS: THIAMINE 200 MG/2 ML INJ IVP SCH ×2 (08:19→20:02)
[2020-07-14] MEDS: METHYLPREDNISOLONE 40 MG INJ IV SCH ×2 (08:19→20:01)
[2020-07-14] MEDS: ENOXAPARIN 40 MG/0.4 ML SQ SCH (08:19)
[2020-07-14] MEDS: INSULIN 70/30 100 UNITS/ML SQ SCH ×2 (08:19→16:36)
[2020-07-14] MEDS: ASCORBIC ACID 500 MG TABLET PO SCH ×3 (08:20→20:02)
[2020-07-14] MEDS: VITAMIN D 1000 UNIT TAB PO SCH (08:20)
[2020-07-14] MEDS: PANTOPRAZOLE 40 MG INJ IVP SCH ×2 (08:20→20:01)
[2020-07-14] MEDS: ZINC SULFATE 220 MG CAP PO SCH (08:20)
[2020-07-14] MEDS: FAMOTIDINE 20 MG TAB PO SCH (08:20)
[2020-07-14] MEDS: CALCITROL 0.25 MCG CAP PO SCH (08:20)
[2020-07-14 08:26] LABS: Potassium 5.7 mmol/L (3.5-5.1)
--- NOTE | 2020-07-14 09:13 | P.PN ---
Subjective Date of Service: 07/14/20 Chief Complaint: Respiratory failure Subjective: Other (Patient remains intubated.) Physical Examination - Vital Signs Temperature: 97.1 F Blood Pressure: 130/75 Pulse: 74 Respirations: 25 Pulse Ox (%): 95 - Studies Medications List Reviewed: Yes Assessment & Plan Discharge Plan: Home Plan to discharge in: Greater than 2 days Physician Review Additional Text: Physical exam: Patient remains intubated and less sedated. Eyes: Corneal reflex noted Heart: Regular rate and rhythm Lungs: Patient intubated. FiO2 at 30 %. GI: Soft nontender nondistended Extremities: Lower extremities showed some mild edema Impression: Acute respiratory failure secondary to severe acute respiratory syndrome related to COVID-19 pneumonia Diabetes mellitus type 2 with hyperglycemia Acute on chronic renal failure stage IV with hypernatremia/metabolic acidosis/hyperkalemia Acute on chronic anemia Diarrhea without evidence of C. difficile colitis Mild protein malnutrition GERD with moderate hiatal hernia Fatty liver Plan: Acute respiratory failure secondary to severe acute respiratory syndrome related to COVID-19 pneumonia: Patient remains intubated. Pulmonology working to wean off sedation. Pulmonology plans to continue to wean off sedation and hopefully extubate if she passes her breathing trial. Continue IV steroid and supplementation. Potassium was slightly elevated today. Lasix given by nephrology. We will recheck potassium. Hypernatremia resolved. Hemoglobin stable after 3 units of blood given. Continue with current medication. DVT prophylaxis restarted as recommended by pulmonology. Anticipate continued improvement. Will update family. I will turn to service over to the hospitalist team tomorrow. I will go over plan of care with him. Diabetes mellitus type 2 with hyperglycemia: Continue to adjust insulin therapy for better control. Accu-Cheks in place. Acute on chronic renal failure stage IV with hypernatremia/metabolic acidosis/hyperkalemia: Potassium elevated this morning. Nephrology provided Lasix this morning. Recheck potassium. Continue with nephrology recommendation. Acute on chronic anemia: Hemoglobin stable. Patient has received 3 units of blood. Maintain hemoglobin above 7.5. Diarrhea without evidence of C. difficile colitis: Stable. C. difficile negative. Mild protein malnutrition: Continue with supplementation. GERD with moderate hiatal hernia: Pulmonology recommends to discontinue Protonix and use Pepcid instead. Patient with history of GI bleed in the past as reported by daughter. Patient has received 3 units of blood. No evidence of active bleed. Fatty liver: Continue with plan above Time Spent Managing Pts Care (In Minutes): 55
--- NOTE | 2020-07-14 09:56 | P.PN ---
Subjective Date of Service: 07/14/20 Chief Complaint: Respiratory failure Patient is doing a better will try to wean her off the of Versed said drip and then plan to decrease the peep to 5 following that decrease the pressure support to 10 if she tolerates the above settings will plan to do a spontaneous breathing trial minimal diarrhea Review of Systems is unable to be obtained Physical Examination - Vital Signs Temperature: 97.1 F Blood Pressure: 118/65 Pulse: 64 Respirations: 25 Pulse Ox (%): 95 - Physical Exam General: Unresponsive Respiratory: Clear to auscultation bilaterally - Studies Medications List Reviewed: Yes Assessment & Plan - Problems (Diagnosis) (1) Acute respiratory failure due to severe acute respiratory syndrome coronavirus 2 (SARS-CoV-2) infection Current Visit: Yes Status: Acute Plan: Respiratory failure patient is improving plan to wean her off the ventilator O fully will do that tomorrow morning to decrease her peep pressure support setting wean her off Versed said chest x-ray reviewed endotracheal tube satisfactory position hyperkalemia recheck potassium renal function is improving patient was given 1 dose of Lasix by Nephrology
[2020-07-14] MEDS ORDERED: FUROSEMIDE 40 MG/4 ML VIAL IV ONE (10:00)
--- NOTE | 2020-07-14 11:12 | RAD REPORT ---
EXAM DESCRIPTION: RAD - Chest Single View - 07/14/2020 6:03 am CLINICAL HISTORY: Respiratory failure Chest pain. COMPARISON: Chest Single View dated 07/13/2020; Chest Single View dated 07/12/2020; Chest Single View d ated 07/10/2020; Chest Single View dated 07/09/2020 FINDINGS: Portable technique limits examination quality. Tip of the endotracheal tube is at the level of the superior aortic arch. Enteric tube descends into the upper abdomen. Bilateral pulmonary opacities are noted, unchanged.The heart is normal in size.
[2020-07-14 11:13] LABS: Arterial Blood Carboxyhemoglob 1.8 % (0-1.5); Blood Gas Oxyhemoglobin 89.8 % (94-97); Blood O2 Saturation 92.4 % (92-98.5)
[2020-07-14 13:40] LABS: Potassium 5.6 mmol/L (3.5-5.1)
[2020-07-14 18:39] LABS: Potassium 5.8 mmol/L (3.5-5.1)
--- NOTE | 2020-07-14 20:10 | PN ---
Date of Progress Note: 07/14/2020 Subjective: The patient is seen in intensive care unit, in bed. The patient is overall looking abou t the same as yesterday. She is still on the ventilator, dependant on the vent. Her lower extremiti es still have some swelling about the same as yesterday. The patient has had some good urine output. Since she got her Lasix she has another 500 cc since the past 6 hours or so. She is maintaining he r blood pressures at about 126 to 150 range, lately the blood pressure has been between 120s and 130s systolic. She is afebrile. Objective: Vital signs: Also show that she has O2 sats in the 90 range. Lungs: Clear to auscultation anteriorly, decreased sounds at the bases. Abdomen: Soft. Extremities: Revealed edema. Heart: Sounds are regular. Laboratory Data: Reviewed. WBC count is gone up slightly at 12.8, hemoglobin and hematocrit 9.2 and 27.9, platelet count of 210. Her chemistries show her kidney function has been reasonably stable. Perhaps a little bit of an increase in the creatinine from 1.15 to 1.23 on the last check for morning . Her BUN has stated about 75 from 74. Her potassium, which was elevated at 5.8 range has come down to 5.6, after she has gotten the Lasix. Her sugars have been running high in the 160-200 range. Th e patient has just gotten her insulin. She also gets 70/30 in the evening. She has gotten her short -acting coverage recently. Assessment And Plan: The patient with respiratory failure, acute kidney injury, hyperkalemia. At th is point, the patient is somewhat improved. Potassium seems to be stabilizing. She has gotten a dos e of Lasix and her potassium has improved a little bit. She has also gotten some insulin, which alix florian help also. We will repeat to check the potassium in about 2-4 hours and then decide if further La six needs to be given to assist with bringing the potassium further down. The patient is hemodynamic ally stable and her blood pressures are good. She is not on any pressors currently. Vent management and taper as per Dr. Gonzalez. Appreci ate her assistance. /WILLARD Voice ID: [id number] Report ID: [id number]
[2020-07-15] MEDS: FENTANYL CITR 100 MCG/2 ML IV PRN ×3 (00:26→20:02)
[2020-07-15] MEDS ORDERED: SOD POLYSTYREN SUL 15 GM/60 ML UCUP PO ONE (00:38)
[2020-07-15 05:30] LABS: Absolute Lymphocytes (CBC) 0.5 K/uL (0.7-4.9); Basophils % 0.1 % (0-1.3); Lymphocytes % 4.6 % (15.3-44.8); MPV 9.3 fL (7.6-11.3); RBC Red Blood Cell Count 2.72 M/uL (3.86-4.86)
[2020-07-15] MEDS: INSULIN -REGULAR HUMAN 50 UNIT/0.5 ML ML SQ SCH ×4 (05:36→23:36)
[2020-07-15 06:04] LABS: C-Reactive Protein 29.8 mg/L (<3.00); Ferritin 223.3 ng/mL (8-388)
[2020-07-15] MEDS: INSULIN 70/30 100 UNITS/ML SQ SCH (07:30)
[2020-07-15] MEDS: CALCITROL 0.25 MCG CAP PO SCH (08:17)
[2020-07-15] MEDS: ZINC SULFATE 220 MG CAP PO SCH (08:17)
[2020-07-15] MEDS: VITAMIN D 1000 UNIT TAB PO SCH (08:17)
[2020-07-15] MEDS: FAMOTIDINE 20 MG TAB PO SCH (08:17)
[2020-07-15] MEDS: ENOXAPARIN 40 MG/0.4 ML SQ SCH (08:18)
[2020-07-15] MEDS: METHYLPREDNISOLONE 40 MG INJ IV SCH ×2 (08:18→19:42)
[2020-07-15] MEDS: ASCORBIC ACID 500 MG TABLET PO SCH ×3 (08:18→19:44)
[2020-07-15] MEDS: PANTOPRAZOLE 40 MG INJ IVP SCH ×2 (08:18→19:42)
[2020-07-15] MEDS: THIAMINE 200 MG/2 ML INJ IVP SCH ×2 (08:18→19:42)
[2020-07-15 09:05] LABS: Blood Morphology Comment NOT SEEN (NOT SEEN); Platelet Estimate ADEQ
--- NOTE | 2020-07-15 12:17 | P.PN ---
Subjective Date of Service: 07/15/20 Chief Complaint: Respiratory failure Patient is doing well she is alert responsive cooperative tolerating low levels of ventilatory support Physical Examination - Vital Signs Temperature: 97 F Blood Pressure: 126/68 Pulse: 75 Respirations: 20 Pulse Ox (%): 92 - Physical Exam General: Alert, Cooperative Respiratory: Clear to auscultation bilaterally - Studies Medications List Reviewed: Yes Assessment & Plan - Problems (Diagnosis) (1) Acute respiratory failure due to severe acute respiratory syndrome coronavirus 2 (SARS-CoV-2) infection Current Visit: Yes Status: Acute Plan: Patient is doing much better plan to wean and extubate today labs reviewed mildly anemic vital signs stable is only on FiO2 of 30%
[2020-07-15] MEDS ORDERED: FUROSEMIDE 40 MG/4 ML VIAL IV ONE (14:40)
--- NOTE | 2020-07-15 15:36 | RAD REPORT ---
EXAM DESCRIPTION: Chest Radiography COMPARISON: Chest radiograph July 04, 2020 CLINICAL HISTORY: [facility] MA[facility] PICC placement FINDINGS: A single AP view of the chest demonstrates a normal cardiomediastinal silhouette. The righ t PICC line tip terminates in the lower SVC. Remaining support equipment is stable. No pneumothorax or significant pleural effusion. Improvement in multifocal bilateral consolidations f rom July 04. Osseous structures are intact. IMPRESSION: Improvement in multifocal pneumonia since July 04. The right PICC line tip terminates i n the lower SVC. Electronically signed by: Brody No MD 07/15/2020 3:35 AM CDT Due to temporary technical issues with the PACS/Fluency reporting system, reports are being signed by the in house radiologists without review as a courtesy to insure prompt reporting. The interpreting radiologist is fully responsible for the content of the report.
--- NOTE | 2020-07-15 19:53 | PN ---
Date of Progress Note: 07/15/2020 Subjective: The patient is intubated and sedated with little bit of high blood pressure today 146/78 , on my evaluation was at 150 systolic. Objective: Vital Signs: The patient had pulse of about 90 and regular, respirations around 20, temp erature is afebrile, O2 sats are in the low 90s at about 92%. Lungs: Few crackles at the bases. Abdomen: Soft. Extremities: Some increased edema compared to yesterday. She also has some skin breakdown on the he el, seems like there was a blister that has ruptured and there are some open skin shearing on the lef t heel. Laboratory Data: On evaluation of her lab work, the patient's labs look stable compared to yesterday . Hemoglobin is going down slightly at 7.7, WBC count 11.7, hematocrit 24, platelet count is at 188. Lab data also shows chemistries to be at 143 sodium; potassium is at 5, which is improved from yest erday at 5.8, when it was yesterday; chloride is 110; bicarb is 26; BUN and creatinine are 72 and 1.1 6, the creatinine has improved slightly at 1.16 from 1.32, the BUN stayed about the same in the 70 ra nge; glucose is at 139; calcium is 7.8; CRP is at 29.8; corrected calcium within normal range. Assessment And Plan: 1.The patient with significant respiratory failure. At this point, still seems to be slightly on th e volume overload side. Potassium has improved. Blood pressures slightly on the higher side. The p atient is still vent dependent. At this point, we will go ahead and give her a dose of Lasix at 40 m g IV to stabilize the potassium further, to also get some fluid off her, and monitor her blood pressu re, which is slightly on the higher side, but hopefully with the Lasix that would improve also. 2.Skin break on the left. Discussed with the nursing staff. Take pressure off that area and if this does not improve, may need evaluation with further assessment and wound care. /WILLARD Voice ID: [id number] Report ID: [id number]
[2020-07-16] MEDS: FENTANYL CITR 100 MCG/2 ML IV PRN ×2 (00:33→04:45)
[2020-07-16 05:10] LABS: Absolute Lymphocytes (CBC) 0.5 K/uL (0.7-4.9); Basophils % 0.4 % (0-1.3); Hematocrit 23.4 % (36.0-45.0); Lymphocytes % 6.8 % (15.3-44.8); RBC Red Blood Cell Count 2.66 M/uL (3.86-4.86)
[2020-07-16 05:35] LABS: Ferritin 262.2 ng/mL (8-388)
[2020-07-16] MEDS: INSULIN -REGULAR HUMAN 50 UNIT/0.5 ML ML SQ SCH ×3 (06:08→16:48)
--- NOTE | 2020-07-16 06:55 | RAD REPORT ---
EXAM DESCRIPTION: RAD - Chest Single View - 07/16/2020 6:10 am CLINICAL HISTORY: Respiratory failure COMPARISON: July 15, July 14 TECHNIQUE: AP portable chest image was obtained 07/16/2020 6:10 am . FINDINGS: Endotracheal tube tip is 2 cm above the kimi. NG tube is in the proximal stomach. PICC l ine terminates at the distal SVC. Bilateral pneumonia changes continue to show improvement. No progressive lung parenchymal process. He art and vasculature are normal. No measurable pleural effusion and no pneumothorax. No acute bony abn ormality seen. No acute aortic findings suspected. IMPRESSION: Endotracheal tube tip is 2 cm above the kimi. NG/OG tube and right-sided PICC line unchanged in position. Continued improvement in the bilateral pneumonia pattern from prior imaging
[2020-07-16] MEDS: PANTOPRAZOLE 40 MG INJ IVP SCH (08:22)
[2020-07-16] MEDS: ASCORBIC ACID 500 MG TABLET PO SCH ×3 (08:22→20:12)
[2020-07-16] MEDS: FAMOTIDINE 20 MG TAB PO SCH (08:22)
[2020-07-16] MEDS: VITAMIN D 1000 UNIT TAB PO SCH (08:22)
[2020-07-16] MEDS: THIAMINE 200 MG/2 ML INJ IVP SCH ×2 (08:22→20:11)
[2020-07-16] MEDS: METHYLPREDNISOLONE 40 MG INJ IV SCH ×2 (08:22→20:11)
[2020-07-16] MEDS: ENOXAPARIN 40 MG/0.4 ML SQ SCH (08:22)
[2020-07-16] MEDS: CALCITROL 0.25 MCG CAP PO SCH (08:22)
[2020-07-16] MEDS: ZINC SULFATE 220 MG CAP PO SCH (08:23)
[2020-07-16] MEDS ORDERED: FUROSEMIDE 20 MG/ 2ML VIAL IV ONE ×2 (12:10→13:00)
--- NOTE | 2020-07-16 12:12 | P.PN ---
Subjective Date of Service: 07/16/20 Chief Complaint: Respiratory failure Patient is doing well failed a weaning trial yesterday will attempt again very alert responsive cooperative healing a little weak Physical Examination - Vital Signs Temperature: 97.1 F Blood Pressure: 125/65 Pulse: 83 Respirations: 19 Pulse Ox (%): 91 - Studies Medications List Reviewed: Yes Assessment & Plan - Problems (Diagnosis) (1) Acute respiratory failure due to severe acute respiratory syndrome coronavirus 2 (SARS-CoV-2) infection Current Visit: Yes Status: Acute Plan: Respiratory failure will plan to try her to wean off the ventilator today still very weak I suspect is from the use of sedation and a paralytic agents chest x- ray labs reviewed mildly anemic 1 dose of Lasix only on 35% FiO2 Armando be able to extubate him for her on BiPAP patient probably has underlying dura muscular weakness from the nose sedation and paralytic agents Physician Review Additional Text: Physical exam: Patient remains intubated and less sedated. Eyes: Corneal reflex noted Heart: Regular rate and rhythm Lungs: Patient intubated. FiO2 at 30 %. GI: Soft nontender nondistended Extremities: Lower extremities showed some mild edema Impression: Acute respiratory failure secondary to severe acute respiratory syndrome related to COVID-19 pneumonia Diabetes mellitus type 2 with hyperglycemia Acute on chronic renal failure stage IV with hypernatremia/metabolic acidosis/hyperkalemia Acute on chronic anemia Diarrhea without evidence of C. difficile colitis Mild protein malnutrition GERD with moderate hiatal hernia Fatty liver Plan: Acute respiratory failure secondary to severe acute respiratory syndrome related to COVID-19 pneumonia: Patient remains intubated. Pulmonology working to wean off sedation. Pulmonology plans to continue to wean off sedation and hopefully extubate if she passes her breathing trial. Continue IV steroid and supplementation. Potassium was slightly elevated today. Lasix given by nephrology. We will recheck potassium. Hypernatremia resolved. Hemoglobin stable after 3 units of blood given. Continue with current medication. DVT prophylaxis restarted as recommended by pulmonology. Anticipate continued impro vement. Will update family. I will turn to service over to the hospitalist team tomorrow. I will go over plan of care with him. Diabetes mellitus type 2 with hyperglycemia: Continue to adjust insulin therapy for better control. Accu-Cheks in place. Acute on chronic renal failure stage IV with hypernatremia/metabolic acidosis/hyperkalemia: Potassium elevated this morning. Nephrology provided Lasix this morning. Recheck potassium. Continue with nephrology recommendation. Acute on chronic anemia: Hemoglobin stable. Patient has received 3 units of blood. Maintain hemoglobin above 7.5. Diarrhea without evidence of C. difficile colitis: Stable. C. difficile negative. Mild protein malnutrition: Continue with supplementation. GERD with moderate hiatal hernia: Pulmonology recommends to discontinue Protonix and use Pepcid instead. Patient with history of GI bleed in the past as reported by daughter. Patient has received 3 units of blood. No evidence of active bleed. Fatty liver: Continue with plan above
[2020-07-16 12:21] LABS: Potassium 5.5 mmol/L (3.5-5.1)
[2020-07-16] MEDS ORDERED: FUROSEMIDE 40 MG/4 ML VIAL IV ONE (12:33)
[2020-07-16] MEDS ORDERED: D50W 25 GM/50 ML SYRINGE IV PRN (14:22)
[2020-07-16] MEDS ORDERED: D50W 25 GM/50 ML SYRINGE IV ONE (14:22)
[2020-07-16] MEDS ORDERED: GLUCAGON 1 MG/VIAL IM PRN (14:22)
[2020-07-16] MEDS ORDERED: INSULIN -REGULAR HUMAN 50 UNIT/0.5 ML ML IV ONE (14:23)
--- NOTE | 2020-07-16 19:22 | PN ---
Subjective: The patient is seen in intensive care unit. The patient is still not responsive. She i s intubated. She seems to be about the same in terms of her volume status compared to yesterday. Patti castro has pressure off her heels, and there does not seem to be any wound there. The skin scraping is he aling well. Objective: Vital Signs: The patient's vitals are stable with blood pressure running in 120s and 130 s. Last blood pressure 128/56, pulse 79, respirations around 14 to 16, afebrile, O2 sats are between 90 and 100%. General: The patient is intubated and does not look to be on any paralytics, but is unresponsive. Lungs: . Abdomen: Soft. Extremities: Revealed positive edema. Medications: Reviewed. The patient is on vitamin D replacement. She is on Lovenox. She is getting fentanyl for discomfort and hydromorphone/Dilaudid for discomfort. She has 40 mg of IV methylpredni solone q.12 hours. She has Zofran q.6 hours p.r.n. She has thiamine and zinc supplements. Laboratory Data: Reviewed. Labs show WBC count 7, hemoglobin is stable at 7.9, was 7.7 yesterday, p latelet count is 230. Her hematocrit is 23.4. Chemistry shows sodium 142, potassium 5.5, chloride i s 107, bicarb is 28, BUN is 59, creatinine is 1.07. Assessment And Plan: The patient with volume overload. Blood pressure stable. Slight hyperkalemia. The lab work was not available for BMP. We just checked it stat. The potassium has come up to 5.5 . She was responding quite well to Lasix. We will give another dose of 40 mg IV Lasix now to assist with getting the potassium better controlled and recheck her BMP tomorrow morning. The patient seem s to have encephalopathy likely secondary to her COVID-19 paralytics, but still unresponsive on ventilator support. Condition overall continues to be guarded. /WILLARD Voice ID: [id number] Report ID: [id number]
[2020-07-16] MEDS: HYDROMORPHONE HCL 2 MG/ML inj IV PRN (20:14)
[2020-07-17] MEDS: INSULIN -REGULAR HUMAN 50 UNIT/0.5 ML ML SQ SCH ×4 (00:30→17:02)
[2020-07-17] MEDS: HYDROMORPHONE HCL 2 MG/ML inj IV PRN (00:30)
[2020-07-17 05:18] LABS: Absolute Lymphocytes (CBC) 0.4 K/uL (0.7-4.9); Basophils % 0.4 % (0-1.3); Lymphocytes % 14.7 % (15.3-44.8); RBC Red Blood Cell Count 2.34 M/uL (3.86-4.86)
[2020-07-17 05:28] LABS: Hematocrit 20.7 % (36.0-45.0)
[2020-07-17 05:34] LABS: Arterial Blood Carboxyhemoglob 1.9 % (0-1.5); Blood Gas Oxyhemoglobin 93.4 % (94-97)
[2020-07-17 05:40] LABS: Ferritin 217.5 ng/mL (8-388); Magnesium 2.8 mg/dL (1.8-2.4); Phosphorus 5.9 mg/dL (2.5-4.9); Potassium 6.4 mmol/L (3.5-5.1)
[2020-07-17] MEDS ORDERED: SODIUM CHLORIDE 0.9% 10ML INJ IV PRN (07:39)
[2020-07-17] MEDS ORDERED: NA CHLORIDE 0.9% 250 ML ONE ×2 (08:07→13:49)
[2020-07-17] MEDS: FAMOTIDINE 20 MG TAB PO SCH (08:12)
[2020-07-17] MEDS: ASCORBIC ACID 500 MG TABLET PO SCH ×3 (08:12→20:30)
[2020-07-17] MEDS: METHYLPREDNISOLONE 40 MG INJ IV SCH (08:12)
[2020-07-17] MEDS: ZINC SULFATE 220 MG CAP PO SCH (08:12)
[2020-07-17] MEDS: CALCITROL 0.25 MCG CAP PO SCH (08:12)
[2020-07-17] MEDS: VITAMIN D 1000 UNIT TAB PO SCH (08:12)
[2020-07-17] MEDS: THIAMINE 200 MG/2 ML INJ IVP SCH ×2 (08:13→20:30)
[2020-07-17] MEDS ORDERED: FUROSEMIDE 20 MG/ 2ML VIAL IV ONE ×3 (08:15→18:00)
[2020-07-17] MEDS ORDERED: INSULIN -REGULAR HUMAN 50 UNIT/0.5 ML ML SQ ONE (08:21)
[2020-07-17] MEDS: PANTOPRAZOLE 40 MG INJ IVP SCH (08:27)
[2020-07-17] MEDS: SOD POLYSTYREN SUL 15 GM/60 ML UCUP PO SCH ×3 (08:52→15:07)
--- NOTE | 2020-07-17 09:02 | RAD REPORT ---
EXAM DESCRIPTION: Abhilash Single View07/17/2020 8:43 am CLINICAL HISTORY: Chest pain COMPARISON: none FINDINGS: Endotracheal tube is at the distal aspect of the aortic arch. It lies 14 millimeters abov e the kimi. No significant change in the bilateral pulmonary opacities. PICC line an NG tube remain in place IMPRESSION: Endotracheal tube is at the distal aspect of the aortic arch. It lies 14 millimeters ab ove the kimi. No significant change in the bilateral pulmonary opacities
--- NOTE | 2020-07-17 10:22 | P.PN ---
Date of Service: 07/17/20 Vital Signs Temp Pulse Resp BP Pulse Ox 96.6 F L 72 12 119/48 L 94 07/17/20 08:00 07/17/20 08:26 07/17/20 08:00 07/17/20 08:26 07/17/20 08:00 Medications Acetaminophen (Acetaminophen 500 Mg Tab) 500 mg PO Q4HP PRN PRN Reason: Pain scale 2-4 (Mild) Last Admin: 07/04/20 08:39 Dose: 500 mg Documented by: Ascorbic Acid (Ascorbic Acid 500 Mg Tablet) 1,000 mg PO TID [facility] Last Admin: 07/17/20 08:12 Dose: 1,000 mg Documented by: Benzonatate (Benzonatate 100 Mg Cap) 100 mg PO TID PRN PRN Reason: COUGH Calcitriol (Calcitrol 0.25 Mcg Cap) 0.5 mcg PO DAILY [facility] Last Admin: 07/17/20 08:12 Dose: 0.5 mcg Documented by: Cholecalciferol (Vitamin D 1000 Unit Tab) 4,000 unit PO DAILY [facility] Last Admin: 07/17/20 08:12 Dose: 4,000 unit Documented by: Dextrose (D50w 25 Gm/50 Ml Vial) 12.5 gm IV PRN PRN; Protocol PRN Reason: HYPOGLYCEMIA Enteral Nutritional Formula (Glucerna 1.5 Arvind 1,000 Ml Bot) 1,000 ml RTH CONT [facility] Last Admin: 07/14/20 06:22 Dose: 1,000 ml Documented by: Famotidine (Famotidine 20 Mg Tab) 20 mg PO DAILY [facility]; Protocol Last Admin: 07/17/20 08:12 Dose: 20 mg Documented by: Fentanyl Citrate (Fentanyl Citr 100 Mcg/2 Ml) 25 mcg IV Q4HP PRN PRN Reason: Pain scale 8-10 (Severe) Last Admin: 07/16/20 04:45 Dose: 25 mcg Documented by: Glucagon (Glucagon 1 Mg/Vial) 1 mg IM 1X PRN; Protocol PRN Reason: HYPOGLYCEMIA Hydromorphone HCl (Hydromorphone Hcl 2 Mg/Ml Inj) 2 mg IV Q4H PRN PRN Reason: Pain scale 8-10 (Severe) Last Admin: 07/17/20 00:30 Dose: 2 mg Documented by: Sodium Chloride (Sodium Chloride) 250 mls @ 999 mls/hr IV Q15M PRN PRN Reason: HYPOTENSION Last Admin: 07/04/20 06:08 Dose: 250 mls Documented by: Midazolam HCl 100 mg/ Sodium (Chloride) 100 mls @ 0 mls/hr IV PRN PRN; Protocol PRN Reason: SEDATION Last Admin: 07/13/20 22:53 Dose: 100 mls Documented by: Sodium Chloride (Sodium Chloride) 250 mls @ 0 mls/hr IV .Q0M [facility] Last Admin: 07/11/20 08:25 Dose: 250 mls Documented by: Insulin Human Regular (Insulin -Regular Human 50 Unit/0.5 Ml Ml) 0 unit SQ Q6H [facility]; Protocol Last Admin: 07/17/20 05:45 Dose: 12 unit Documented by: Loperamide HCl (Loperamide Hcl 2 Mg Capsule) 2 mg FT Q4H PRN PRN Reason: DIARRHEA Last Admin: 07/13/20 21:39 Dose: 2 mg Documented by: Methylprednisolone Sodium Succinate (Methylprednisolone 40 Mg Inj) 40 mg IV Q12HR [facility] Last Admin: 07/17/20 08:12 Dose: 40 mg Documented by: Ondansetron HCl (Ondansetron 4 Mg/2 Ml Vial) 4 mg IV Q6HP PRN PRN Reason: NAUSEA / VOMITING Pantoprazole Sodium (Pantoprazole 40 Mg Inj) 40 mg IVP DAILY [facility]; Protocol Last Admin: 07/17/20 08:27 Dose: 40 mg Documented by: Sodium Chloride (Flush Normal Saline 10 Ml) 10 ml IV BID [facility] Last Admin: 07/17/20 08:27 Dose: 10 ml Documented by: Sodium Chloride (Sodium Chloride 0.9% 10ml Inj) 10 ml IV UD PRN PRN Reason: Diluant Sodium Chloride (Sodium Chloride 0.9% 10ml Inj) 10 ml IV UD PRN PRN Reason: Diluant Sodium Polystyrene Sulfonate (Sod Polystyren Sul 15 Gm/60 Ml Ucup) 15 gm PO Q3H [facility] Stop: 07/17/20 15:01 Last Admin: 07/17/20 08:52 Dose: 15 gm Documented by: Thiamine HCl (Thiamine 200 Mg/2 Ml Inj) 200 mg IVP BID [facility] Last Admin: 07/17/20 08:13 Dose: 200 mg Documented by: Zinc Sulfate (Zinc Sulfate 220 Mg Cap) 220 mg PO DAILY [facility] Last Admin: 07/17/20 08:12 Dose: 220 mg Documented by: Assessment/ Plan: Nephrology Limited IH/ ROS due to intubation/ sedation More awake today No acute events overnight. Vitals, medications, blood work and imaging reviewed in the chart. General: In no apparent distress, Unresponsive HEENT: Atraumatic Neck: Supple Respiratory: Diminished Cardiovascular: Edema 1+, Regular rate/rhythm Gastrointestinal: Soft and benign, Non-distended Musculoskeletal: No clubbing, No contractures Integumentary: No rashes, No cyanosis Patient care >30min Imagings Data: EXAM DESCRIPTION: Randeet Single View07/08/2020 5:25 pm CLINICAL HISTORY: Device placement endotracheal tube placement IMPRESSION: An endotracheal tube has its tip at the level of the top of the aortic arch EXAM DESCRIPTION: CT - Chest For Pe Angio - 07/02/2020 3:15 pm CLINICAL HISTORY: Chest pain. shortness of breath COMPARISON: Chest For Pe Angio dated 01/09/2019 TECHNIQUE: CT angiogram of the pulmonary arteries was performed with MIP. All CT scans are performed using dose optimization technique as appropriate and may include automated exposure control or mA/KV adjustment according to patient size. FINDINGS: No evidence of pulmonary thromboembolism. No acute aortic finding demonstrated. Extensive interstitial and alveolar lung opacities are present bilaterally, greatest in the upper lobes, likely representing pneumonia. No significant pericardial or pleural fluid. No concerning bony finding. Moderate axial hiatal hernia. IMPRESSION: No evidence of pulmonary thromboembolism. Extensive interstitial and alveolar lung opacities bilaterally compatible with COVID-19 infection. EXAM DESCRIPTION: CTAbdomen Pelvis W Contrast - 07/02/2020 3:15 pm CLINICAL HISTORY: Abdominal pain. abdominal pain, flank pain COMPARISON: No comparisons TECHNIQUE: Biphasic CT imaging of the abdomen and pelvis was performed with 100 ml non-ionic IV contrast. All CT scans are performed using dose optimization technique as appropriate and may include automated exposure control or mA/KV adjustment according to patient size. FINDINGS: Mild moderate bibasilar lung opacities are present. Diffuse fatty liver is seen. Moderate axial hiatal hernia. The spleen, pancreas, adrenal glands are within normal limits. Nonobstructing bilateral renal calculi. No bowel obstruction, free air, free fluid or abscess. Moderate stool is retained in the colon. The appendix is normal. No evidence of significant lymphadenopathy. No suspicious bony findings. IMPRESSION: Bilateral nephrolithiasis without hydronephrosis. Diffuse fatty liver. Moderate hiatal hernia. Conclusions/Impression: A/P: Continue the current POC and Medications other than the changes listed. AM Labs PRN. Recommend daily weight. Please see the orders for complete details. LISA in the setting of hypotension CKD III with proteinuria -No NSAIDs Hypernatremia Hyperkalemia -Kayexalate 15g X3 doses Acidosis Hypocalcemia -Continue Calcitriol HTN complicated by hypotension -Hold Losartan DM II with CKD -Continue Insulin 70/30 Severe malnutrition with hypoalbuminemia -Maintain nutrition -IV albumin as needed Anemia in chronic illness -Monitor H&H -Transfuse PRBC COVID-19 PNA Acute hypoxic respiratory failure -Continue Oxygen supplementation -Continue steroids -Continue Vitamin C and Zinc -Lasix prn
--- NOTE | 2020-07-17 12:32 | P.PN ---
Subjective Date of Service: 07/17/20 Chief Complaint: Respiratory failure GI bleeding Patient is doing well tolerating lower ventilatory support has not with GI bleeding hemoglobin has dropped Review of Systems is unable to be obtained Physical Examination - Vital Signs Temperature: 96.6 F Blood Pressure: 113/58 Pulse: 64 Respirations: 14 Pulse Ox (%): 100 - Studies Medications List Reviewed: Yes Assessment & Plan - Problems (Diagnosis) (1) Acute respiratory failure due to severe acute respiratory syndrome coronavirus 2 (SARS-CoV-2) infection Current Visit: Yes Status: Acute Plan: Patient is doing well plan to wean off the ventilator (2) GI bleed Current Visit: Yes Status: Acute Plan: Lovenox. Transfuse 2 units of packed red blood cells IV Protonix restarted reduce dose of steroids Qualifiers: Gastritis type: unspecified gastritis
[2020-07-17] MEDS ORDERED: FUROSEMIDE 20 MG/ 2ML VIAL ONE (13:56)
[2020-07-17 20:47] LABS: Hematocrit 27.3 % (36.0-45.0)
[2020-07-18] MEDS: INSULIN -REGULAR HUMAN 50 UNIT/0.5 ML ML SQ SCH ×5 (00:06→21:00)
[2020-07-18] MEDS: METHYLPREDNISOLONE 40 MG INJ IV SCH ×3 (00:08→20:55)
--- NOTE | 2020-07-18 08:10 | P.PN ---
Date of Service: 07/15/20 Subjective Patient is slowly improving. Remains on mechanical ventilation. Continue to try to wean off and monitoring how patient is going for. Review of Systems Unable to obtain Physical Examination - Vital Signs reviewed - Physical Exam General: Intubated and sedated Respiratory: Clear bilaterally Cardiovascular: Regular rate/rhythm, Normal S1 S2, No murmurs Gastrointestinal: Normal bowel sounds, Soft and benign, Non-distended, No tenderness Musculoskeletal: No clubbing, No swelling, No tenderness Neurological: Intubated and sedated Assessment & Plan - Problems (Diagnosis) (1) Acute respiratory failure due to severe acute respiratory syndrome coronavirus 2 (SARS-CoV-2) infection Current Visit: Yes Status: Acute (2) DM2 (diabetes mellitus, type 2) Current Visit: Yes Status: Acute (3) Acute kidney injury Current Visit: Yes Status: Acute - Plan Continue with plan of care as mentioned below 1. Continue with IV steroids; may need to gently wean off as patient with anemia 2. Respiratory symptoms are improved 3. Continue monitoring labs closely 4. Mechanical ventilation; weaning off slowly per Pulmonary recommendation 5. Pulmonary consultation appreciated 6. Continue neb treatments 7. Monitor LFTs 8. Monitor volume status closely. Diuresing as needed 9. GI and DVT prophylaxis
[2020-07-18] MEDS: THIAMINE 200 MG/2 ML INJ IVP SCH (08:18)
[2020-07-18] MEDS: PANTOPRAZOLE 40 MG INJ IVP SCH ×2 (08:18→20:54)
[2020-07-18] MEDS: ASCORBIC ACID 500 MG TABLET PO SCH (08:19)
[2020-07-18] MEDS: FAMOTIDINE 20 MG TAB PO SCH (08:19)
[2020-07-18] MEDS: VITAMIN D 1000 UNIT TAB PO SCH (08:19)
[2020-07-18] MEDS: ZINC SULFATE 220 MG CAP PO SCH (08:19)
[2020-07-18] MEDS: CALCITROL 0.25 MCG CAP PO SCH (08:19)
--- NOTE | 2020-07-18 08:21 | P.PN ---
Date of Service: 07/16/20 Subjective Patient undergoing spontaneous breathing trials. Doing okay. Continue monitoring closely. Review of Systems Unable to obtain Physical Examination - Vital Signs reviewed - Physical Exam General: Intubated and sedated Respiratory: Clear bilaterally Cardiovascular: Regular rate/rhythm, Normal S1 S2, No murmurs Gastrointestinal: Normal bowel sounds, Soft and benign, Non-distended, No tenderness Musculoskeletal: No clubbing, No swelling, No tenderness Neurological: Intubated and sedated Assessment & Plan - Problems (Diagnosis) (1) Acute respiratory failure due to severe acute respiratory syndrome coronavirus 2 (SARS-CoV-2) infection Current Visit: Yes Status: Acute (2) DM2 (diabetes mellitus, type 2) Current Visit: Yes Status: Acute (3) Acute kidney injury Current Visit: Yes Status: Acute - Plan Continue with plan of care as mentioned below 1. Undergoing spontaneous breathing trial. Working on trying to get patient extubated over the next couple of days. 2. IV steroids as needed 3. Continue monitoring labs closely 4. Mechanical ventilation; weaning off slowly per Pulmonary recommendation 5. Pulmonary consultation appreciated 6. Continue neb treatments 7. Monitor LFTs 8. Monitor volume status closely. Diuresing as needed 9. GI and DVT prophylaxis
--- NOTE | 2020-07-18 08:27 | P.PN ---
Date of Service: 07/17/20 Subjective Patient was extubated this evening. Patient is doing well. Monitor closely. Physical therapy and advanced diet as tolerated Review of Systems Unable to obtain Physical Examination - Vital Signs reviewed - Physical Exam General: Patient doing well extubated; awake and following commands Respiratory: Clear bilaterally Cardiovascular: Regular rate/rhythm, Normal S1 S2, No murmurs Gastrointestinal: Normal bowel sounds, Soft and benign, Non-distended, No tenderness Musculoskeletal: No clubbing, No swelling, No tenderness Neurological: Awake and following commands. Generalized weakness Assessment & Plan - Problems (Diagnosis) (1) Acute respiratory failure due to severe acute respiratory syndrome coronavirus 2 (SARS-CoV-2) infection Current Visit: Yes Status: Acute (2) DM2 (diabetes mellitus, type 2) Current Visit: Yes Status: Acute (3) Acute kidney injury Current Visit: Yes Status: Acute - Plan Continue with plan of care as mentioned below 1. Patient doing well extubated. Continue monitoring closely. Continue with physical therapy and advanced diet as tolerated 2. Wean IV steroids 3. Continue monitoring labs closely 4. Appreciate Pulmonary recommendations 5. Continue neb treatments 6. GI and DVT prophylaxis
[2020-07-18 11:27] LABS: Absolute Lymphocytes (CBC) 0.4 K/uL (0.7-4.9); Basophils % 0.4 % (0-1.3); Hematocrit 29.3 % (36.0-45.0); Lymphocytes % 7.3 % (15.3-44.8); MPV 8.8 fL (7.6-11.3); RBC Red Blood Cell Count 3.26 M/uL (3.86-4.86)
[2020-07-18 11:38] LABS: Magnesium 2.3 mg/dL (1.8-2.4); Potassium 4.4 mmol/L (3.5-5.1)
--- NOTE | 2020-07-18 12:45 | P.PN ---
Subjective Date of Service: 07/18/20 Chief Complaint: Respiratory failure GI bleeding Subjective: Improving (Patient is doing much better today she was extubated last night alert responsive cooperative) Review of Systems General: Weakness Respiratory: Shortness of Breath Physical Examination - Vital Signs Temperature: 96.5 F Blood Pressure: 135/73 Pulse: 73 Respirations: 16 Pulse Ox (%): 100 - Physical Exam General: Alert, Oriented x3 Respiratory: Clear to auscultation bilaterally - Studies Medications List Reviewed: Yes Assessment & Plan - Problems (Diagnosis) (1) Acute respiratory failure due to severe acute respiratory syndrome coronavirus 2 (SARS-CoV-2) infection Current Visit: Yes Status: Acute Plan: Patient extubated yesterday (2) GI bleed Current Visit: Yes Status: Acute Plan: Hemoglobin stable will need GI evaluation Qualifiers: Gastritis type: unspecified gastritis
[2020-07-18] MEDS ORDERED: SODIUM CHLORIDE 0.9% 10ML INJ IV PRN (13:13)
--- NOTE | 2020-07-18 16:17 | P.PN ---
Date of Service: 07/18/20 Subjective Patient looks to be awake and alert. Patient looks to be responding appropriately. Review of Systems Unable to obtain Physical Examination - Vital Signs reviewed - Physical Exam General: Patient is following commands Respiratory: Clear bilaterally Cardiovascular: Regular rate/rhythm, Normal S1 S2, No murmurs Gastrointestinal: Normal bowel sounds, Soft and benign, Non-distended, No tenderness Musculoskeletal: No clubbing, No swelling, No tenderness Neurological: Awake and following commands. Generalized weakness Assessment & Plan - Problems (Diagnosis) (1) Acute respiratory failure due to severe acute respiratory syndrome coronavirus 2 (SARS-CoV-2) infection Current Visit: Yes Status: Acute (2) DM2 (diabetes mellitus, type 2) Current Visit: Yes Status: Acute (3) Acute kidney injury Current Visit: Yes Status: Acute - Plan Continue with plan of care as mentioned below 1. Patient continues to improve. Will start physical therapy today. 2. Plan to start weaning the steroids 3. Continue monitoring labs closely 4. Appreciate Pulmonary recommendations 5. Continue neb treatments 6. GI and DVT prophylaxis
--- NOTE | 2020-07-18 19:45 | P.PN ---
Date of Service: 07/18/20 Vital Signs Temp Pulse Resp BP Pulse Ox 97.0 F 68 17 141/70 H 100 07/18/20 16:00 07/18/20 18:00 07/18/20 18:00 07/18/20 18:00 07/18/20 18:00 Medications Acetaminophen (Acetaminophen 500 Mg Tab) 500 mg PO Q4HP PRN PRN Reason: Pain scale 2-4 (Mild) Last Admin: 07/04/20 08:39 Dose: 500 mg Documented by: Benzonatate (Benzonatate 100 Mg Cap) 100 mg PO TID PRN PRN Reason: COUGH Dextrose (D50w 25 Gm/50 Ml Vial) 12.5 gm IV PRN PRN; Protocol PRN Reason: HYPOGLYCEMIA Enteral Nutritional Formula (Glucerna 1.5 Arvind 1,000 Ml Bot) 1,000 ml RTH CONT EUSEBIO Last Admin: 07/14/20 06:22 Dose: 1,000 ml Documented by: Glucagon (Glucagon 1 Mg/Vial) 1 mg IM 1X PRN; Protocol PRN Reason: HYPOGLYCEMIA Sodium Chloride (Sodium Chloride) 250 mls @ 999 mls/hr IV Q15M PRN PRN Reason: HYPOTENSION Last Admin: 07/04/20 06:08 Dose: 250 mls Documented by: Sodium Chloride (Sodium Chloride) 250 mls @ 0 mls/hr IV .Q0M EUSEBIO Last Admin: 07/11/20 08:25 Dose: 250 mls Documented by: Insulin Human Regular (Insulin -Regular Human 50 Unit/0.5 Ml Ml) 0 unit SQ ACHS EUSEBIO; Protocol Loperamide HCl (Loperamide Hcl 2 Mg Capsule) 2 mg FT Q4H PRN PRN Reason: DIARRHEA Last Admin: 07/13/20 21:39 Dose: 2 mg Documented by: Methylprednisolone Sodium Succinate (Methylprednisolone 40 Mg Inj) 20 mg IV Q12HR EUSEBIO Last Admin: 07/18/20 08:18 Dose: 20 mg Documented by: Ondansetron HCl (Ondansetron 4 Mg/2 Ml Vial) 4 mg IV Q6HP PRN PRN Reason: NAUSEA / VOMITING Pantoprazole Sodium (Pantoprazole 40 Mg Inj) 40 mg IVP Q12HR EUSEBIO; Protocol Sodium Chloride (Flush Normal Saline 10 Ml) 10 ml IV BID EUSEBIO Last Admin: 07/18/20 08:19 Dose: 10 ml Documented by: Sodium Chloride (Sodium Chloride 0.9% 10ml Inj) 10 ml IV UD PRN PRN Reason: Diluant Assessment/ Plan: Nephrology Limited IH/ ROS due to intubation/ sedation More awake today No acute events overnight. Vitals, medications, blood work and imaging reviewed in the chart. General: In no apparent distress, Unresponsive HEENT: Atraumatic Neck: Supple Respiratory: Diminished Cardiovascular: Edema 1+, Regular rate/rhythm Gastrointestinal: Soft and benign, Non-distended Musculoskeletal: No clubbing, No contractures Integumentary: No rashes, No cyanosis Patient care >30min Imagings Data: EXAM DESCRIPTION: [facility] Single View07/08/2020 5:25 pm CLINICAL HISTORY: Device placement endotracheal tube placement IMPRESSION: An endotracheal tube has its tip at the level of the top of the aortic arch EXAM DESCRIPTION: CT - Chest For Pe Angio - 07/02/2020 3:15 pm CLINICAL HISTORY: Chest pain. shortness of breath COMPARISON: Chest For Pe Angio dated 01/09/2019 TECHNIQUE: CT angiogram of the pulmonary arteries was performed with MIP. All CT scans are performed using dose optimization technique as appropriate and may include automated exposure control or mA/KV adjustment according to patient size. FINDINGS: No evidence of pulmonary thromboembolism. No acute aortic finding demonstrated. Extensive interstitial and alveolar lung opacities are present bilaterally, greatest in the upper lobes, likely representing pneumonia. No significant pericardial or pleural fluid. No concerning bony finding. Moderate axial hiatal hernia. IMPRESSION: No evidence of pulmonary thromboembolism. Extensive interstitial and alveolar lung opacities bilaterally compatible with COVID-19 infection. EXAM DESCRIPTION: CTAbdomen Pelvis W Contrast - 07/02/2020 3:15 pm CLINICAL HISTORY: Abdominal pain. abdominal pain, flank pain COMPARISON: No comparisons TECHNIQUE: Biphasic CT imaging of the abdomen and pelvis was performed with 100 ml non-ionic IV contrast. All CT scans are performed using dose optimization technique as appropriate and may include automated exposure control or mA/KV adjustment according to patient size. FINDINGS: Mild moderate bibasilar lung opacities are present. Diffuse fatty liver is seen. Moderate axial hiatal hernia. The spleen, pancreas, adrenal glands are within normal limits. Nonobstructing bilateral renal calculi. No bowel obstruction, free air, free fluid or abscess. Moderate stool is retained in the colon. The appendix is normal. No evidence of significant lymphadenopathy. No suspicious bony findings. IMPRESSION: Bilateral nephrolithiasis without hydronephrosis. Diffuse fatty liver. Moderate hiatal hernia. Conclusions/Impression: A/P: Continue the current POC and Medications other than the changes listed. AM Labs PRN. Recommend daily weight. Please see the orders for complete details. LISA in the setting of hypotension CKD III with proteinuria -No NSAIDs Hypernatremia -Maintain hydration Hyperkalemia -Low potassium diet Acidosis Hypocalcemia -Continue Calcitriol HTN complicated by hypotension -Hold Losartan DM II with CKD -Continue Insulin 70/30 Severe malnutrition with hypoalbuminemia -Maintain nutrition -IV albumin as needed Anemia in chronic illness -Monitor H&H -Transfuse PRBC COVID-19 PNA Acute hypoxic respiratory failure -Continue Oxygen supplementation -Continue steroids -Continue Vitamin C and Zinc -Lasix prn
[2020-07-18] MEDS: ONDANSETRON 4 MG/2 ML VIAL IV PRN (21:58)
[2020-07-19] MEDS: INSULIN -REGULAR HUMAN 50 UNIT/0.5 ML ML SQ SCH ×4 (07:56→21:39)
[2020-07-19] MEDS: PANTOPRAZOLE 40 MG INJ IVP SCH ×2 (07:57→21:39)
[2020-07-19] MEDS: METHYLPREDNISOLONE 40 MG INJ IV SCH ×2 (07:57→21:39)
[2020-07-19 09:39] LABS: Basophils % 0.3 % (0-1.3); Hematocrit 30.6 % (36.0-45.0); Lymphocytes % 10.4 % (15.3-44.8); MPV 8.1 fL (7.6-11.3); RBC Red Blood Cell Count 3.43 M/uL (3.86-4.86)
--- NOTE | 2020-07-19 10:49 | P.PN ---
Date of Service: 07/19/20 Subjective Patient is clinically doing better. Her strength is still very diminished. Continue with aggressive therapy at this time. Review of Systems Unable to obtain Physical Examination - Vital Signs reviewed - Physical Exam General: Patient doing well with no new complaints. Respiratory: Clear bilaterally Cardiovascular: Regular rate/rhythm, Normal S1 S2, No murmurs Gastrointestinal: Normal bowel sounds, Soft and benign, Non-distended, No tenderness Musculoskeletal: No clubbing, No swelling, No tenderness Neurological: Awake and following commands. Generalized weakness; patient moving all extremities but strength is 4-/5 Assessment & Plan - Problems (Diagnosis) (1) Acute respiratory failure due to severe acute respiratory syndrome coronavirus 2 (SARS-CoV-2) infection Current Visit: Yes Status: Acute (2) DM2 (diabetes mellitus, type 2) Current Visit: Yes Status: Acute (3) Acute kidney injury Current Visit: Yes Status: Acute - Plan Continue with plan of care as mentioned below 1. Continue with aggressive physical therapy 2. Weaning IV steroids; may need physical therapy evaluation and inpatient rehabilitation 3. Continue monitoring labs closely 4. Continue neb treatments as needed 5. GI and DVT prophylaxis
[2020-07-19 10:59] LABS: Potassium 4.3 mmol/L (3.5-5.1)
[2020-07-19 12:37] LABS: Blood Morphology Comment NOT SEEN (NOT SEEN); Platelet Estimate ADEQ
[2020-07-19] MEDS: ENSURE HIGH PROTEIN 237 ML CAN PO SCH (21:39)
[2020-07-19] MEDS: MELATONIN 5 MG TABLET PO PRN (21:54)
[2020-07-20] MEDS: INSULIN -REGULAR HUMAN 50 UNIT/0.5 ML ML SQ SCH ×4 (07:30→21:47)
[2020-07-20] MEDS: ENSURE HIGH PROTEIN 237 ML CAN PO SCH ×2 (07:47→21:00)
[2020-07-20] MEDS: METHYLPREDNISOLONE 40 MG INJ IV SCH ×2 (08:18→21:45)
[2020-07-20] MEDS: PANTOPRAZOLE 40 MG INJ IVP SCH ×2 (08:18→21:45)
[2020-07-20] MEDS ORDERED: D50W 25 GM/50 ML SYRINGE IV PRN (19:52)
[2020-07-20] MEDS ORDERED: INSULIN GLARGINE 100 UNITS/ML SQ SCH (21:00)
[2020-07-20] MEDS: MELATONIN 5 MG TABLET PO PRN (21:47)
[2020-07-21 05:11] LABS: Absolute Lymphocytes (CBC) 0.7 K/uL (0.7-4.9); Basophils % 0.7 % (0-1.3); Hematocrit 30.7 % (36.0-45.0); Lymphocytes % 7.7 % (15.3-44.8); MPV 7.6 fL (7.6-11.3); RBC Red Blood Cell Count 3.42 M/uL (3.86-4.86)
[2020-07-21 05:26] LABS: Magnesium 1.9 mg/dL (1.8-2.4); Phosphorus 3.9 mg/dL (2.5-4.9); Potassium 4.5 mmol/L (3.5-5.1)
[2020-07-21] MEDS: INSULIN -REGULAR HUMAN 50 UNIT/0.5 ML ML SQ SCH ×4 (07:30→22:09)
[2020-07-21] MEDS: ENSURE HIGH PROTEIN 237 ML CAN PO SCH ×2 (09:00→21:00)
[2020-07-21] MEDS: PANTOPRAZOLE 40 MG INJ IVP SCH ×2 (09:09→22:07)
[2020-07-21] MEDS: METHYLPREDNISOLONE 40 MG INJ IV SCH ×2 (09:09→22:08)
[2020-07-21] MEDS ORDERED: MAGNES/ALUMIN/SIMET 30ML UCUP PO PRN (13:36)
--- NOTE | 2020-07-21 15:37 | P.PN ---
Date of Service: 07/20/20 Subjective Patient continues to gradually improve. Will need to get inpatient rehabilitation Consulted Review of Systems Unable to obtain Physical Examination - Vital Signs reviewed - Physical Exam General: Patient is following commands Respiratory: Clear bilaterally Cardiovascular: Regular rate/rhythm, Normal S1 S2, No murmurs Gastrointestinal: Normal bowel sounds, Soft and benign, Non-distended, No tenderness Musculoskeletal: No clubbing, No swelling, No tenderness Neurological: Awake and following commands. Generalized weakness Assessment & Plan - Problems (Diagnosis) (1) Acute respiratory failure due to severe acute respiratory syndrome coronavirus 2 (SARS-CoV-2) infection Current Visit: Yes Status: Acute (2) DM2 (diabetes mellitus, type 2) Current Visit: Yes Status: Acute (3) Critical-care myopathy Current Visit: Yes Status: Acute - Plan Continue with plan of care as mentioned below 1. Patient continues to improve. Will start physical therapy today. Consult inpatient rehab 2. Continue weaning steroids 3. Continue monitoring labs closely 4. Continue physical therapy evaluation 5. Continue neb treatments 6. GI and DVT prophylaxis
--- NOTE | 2020-07-21 15:45 | P.PN ---
Date of Service: 07/21/20 Subjective Rehab consultation pending. Patient's strength is gradually improving. Status post COVID-19 vaccination. Hospitalized for 19 days. Very unlikely to be contagious from COVID-19. Review of Systems Unable to obtain Physical Examination - Vital Signs reviewed - Physical Exam General: Patient is following commands Respiratory: Clear bilaterally Cardiovascular: Regular rate/rhythm, Normal S1 S2, No murmurs Gastrointestinal: Normal bowel sounds, Soft and benign, Non-distended, No tenderness Musculoskeletal: No clubbing, No swelling, No tenderness Neurological: Awake and following commands. Generalized weakness Assessment & Plan - Problems (Diagnosis) (1) Acute respiratory failure due to severe acute respiratory syndrome coronavirus 2 (SARS-CoV-2) infection Current Visit: Yes Status: Acute (2) DM2 (diabetes mellitus, type 2) Current Visit: Yes Status: Acute (3) Critical-care myopathy Current Visit: Yes Status: Acute - Plan Continue with plan of care as mentioned below 1. Patient continues to improve. Continue with physical therapy. Consult inpatient rehab 2. Change medications to oral meds 3. Continue monitoring labs closely 4. Arrange for discharge planning 5. Continue neb treatments 6. GI and DVT prophylaxis
[2020-07-21] MEDS ORDERED: DIPHENHYDRAMINE 25 MG TAB/CAP PO PRN ×2 (16:53→18:58)
[2020-07-21] MEDS ORDERED: ACETAMINOPHEN 325 MG TABLET PO PRN (16:54)
[2020-07-21] MEDS: JUVEN PACKET PO SCH ×2 (21:00→22:07)
[2020-07-21] MEDS: INSULIN GLARGINE 100 UNITS/ML SQ SCH (22:08)
[2020-07-22 06:32] LABS: Absolute Lymphocytes (CBC) 0.7 K/uL (0.7-4.9); Basophils % 0.3 % (0-1.3); Hematocrit 30.4 % (36.0-45.0); Lymphocytes % 7.9 % (15.3-44.8); MPV 7.7 fL (7.6-11.3)
[2020-07-22 06:50] LABS: Magnesium 1.9 mg/dL (1.8-2.4); Potassium 4.3 mmol/L (3.5-5.1)
[2020-07-22] MEDS: INSULIN -REGULAR HUMAN 50 UNIT/0.5 ML ML SQ SCH ×4 (07:30→21:13)
[2020-07-22] MEDS: ENSURE HIGH PROTEIN 237 ML CAN PO SCH ×2 (07:33→20:51)
[2020-07-22] MEDS: JUVEN PACKET PO SCH ×2 (07:34→20:51)
[2020-07-22] MEDS: METHYLPREDNISOLONE 40 MG INJ IV SCH (08:12)
[2020-07-22] MEDS: PANTOPRAZOLE 40 MG INJ IVP SCH (08:12)
[2020-07-22] MEDS: ONDANSETRON 4 MG/2 ML VIAL IV PRN ×2 (12:14→19:34)
--- NOTE | 2020-07-22 12:14 | P.PN ---
Subjective Date of Service: 07/22/20 Chief Complaint: Sweeney virus pneumonia Patient is doing well alert oriented very cooperative in week unable to transfer Review of Systems General: Weakness Physical Examination - Vital Signs Temperature: 96.9 F Blood Pressure: 114/89 Pulse: 94 Respirations: 17 Pulse Ox (%): 91 - Studies Medications List Reviewed: Yes Assessment & Plan - Problems (Diagnosis) (1) Acute respiratory failure due to severe acute respiratory syndrome coronavirus 2 (SARS-CoV-2) infection Current Visit: Yes Status: Acute Plan: Patient is doing well feeling weak sweeney virus positive that was done recently hemoglobin now stable change to p.o. Protonix and prednisone resume low-dose Lovenox hemoglobin stable (2) GI bleed Current Visit: Yes Status: Acute Plan: H controlled Qualifiers: Gastritis type: unspecified gastritis
--- NOTE | 2020-07-22 13:36 | P.PN ---
Subjective Date of Service: 07/22/20 Chief Complaint: Sweeney virus pneumonia Subjective: Improving, Doing well (off ventilator. No oxygen requirement) Physical Examination - Vital Signs Temperature: 96.9 F Blood Pressure: 114/89 Pulse: 94 Respirations: 17 Pulse Ox (%): 91 - Studies Medications List Reviewed: Yes Assessment & Plan Discharge Plan: Home Plan to discharge in: 72 Hours Physician Review Additional Text: Physical exam: GENERAL: Patient doing well at this time. No oxygen requirement needed VITAL SIGNS: Reviewed NECK: Supple. No carotid bruits. No lymphadenopathy or thyromegaly. LUNGS: Clear to auscultation. No crackles or wheezes are heard. HEART: Regular rate and rythem, no appreciable gallops, rubs, murmurs or extra heart sounds ABDOMEN: Soft, nontender, and nondistended. Positive bowel sounds. No hepatosplenomegaly was noted. EXTREMITIES: Without any cyanosis, clubbing, rash, lesions or peripheral edema. NEUROLOGIC: The patient is oriented to person, place and time. Strength and sensation are grossly intact. Face is symmetric. SKIN: Normal color, turgor and temperature. No ulcerations or rashes noted. Impression: Acute respiratory failure secondary to severe acute respiratory syndrome related to COVID-19 pneumonia Diabetes mellitus type 2 with hyperglycemia Acute on chronic renal failure stage IV with hypernatremia/metabolic acidosis/hyperkalemia Acute on chronic anemia Diarrhea without evidence of C. difficile colitis Mild protein malnutrition GERD with moderate hiatal hernia Fatty liver Plan: Acute respiratory failure secondary to severe acute respiratory syndrome related to COVID-19 pneumonia: Patient doing well at this time. Since I last saw her patient has been extubated. No oxygen requirement needed at this time. Will have physical therapy assess and ambulate. Patient will need to continue with incentive spirometer, proning, and ambulation until she is able to be discharged. Patient does not have any resources for skilled placement or home health. Medications reviewed. Continue to monitor closely. Anticipate improvement over the next 3 to 5 days. Diabetes mellitus type 2 with hyperglycemia: Patient on Lantus. Continue to adjust insulin therapy for better control. Accu-Cheks in place. Acute on chronic renal failure stage IV with hypernatremia/metabolic acidosis/hyperkalemia: Patient overall stable. Continue with nephrology recommendations. Acute on chronic anemia: Hemoglobin stable. Patient has received 3 units of blood during her stay. Maintain hemoglobin above 7.5. Diarrhea without evidence of C. difficile colitis: Stable. C. difficile negative. Mild protein malnutrition: Continue with supplementation. GERD with moderate hiatal hernia: Continue with medication Fatty liver: Continue with plan above Code Status: Full Code DVT prophylaxis: Lovenox Advanced Care Planning-30 minutes: Plan of care for the patient's discharge was discussed in detail with the patient. Patient does not have any resources for inpatient rehab versus skilled versus home health. Will need to continue with physical therapy until the patient is able to ambulate appropriately and discharged safely. Time Spent Managing Pts Care (In Minutes): 55
[2020-07-22] MEDS: PANTOPRAZOLE 40MG TABLET PO SCH (16:27)
[2020-07-22] MEDS: predniSONE 10 MG TAB PO SCH (20:50)
[2020-07-22] MEDS: INSULIN GLARGINE 100 UNITS/ML SQ SCH (21:13)
[2020-07-23 04:55] LABS: Absolute Lymphocytes (CBC) 0.8 K/uL (0.7-4.9); Basophils % 0.4 % (0-1.3); Lymphocytes % 8.6 % (15.3-44.8); MPV 7.3 fL (7.6-11.3); RBC Red Blood Cell Count 3.26 M/uL (3.86-4.86)
[2020-07-23 05:43] LABS: C-Reactive Protein 13.9 mg/L (<3.00); Ferritin 135.3 ng/mL (8-388); Magnesium 1.8 mg/dL (1.8-2.4); Potassium 4.5 mmol/L (3.5-5.1)
[2020-07-23] MEDS ORDERED: MAGNESIUM SULFATE 1 gm IVPB 1 GM/100 ML BAG IV ONE (06:15)
[2020-07-23 07:12] LABS: Blood Morphology Comment NOT SEEN (NOT SEEN); Platelet Estimate ADEQ
[2020-07-23] MEDS: ENSURE HIGH PROTEIN 237 ML CAN PO SCH ×2 (07:24→21:00)
[2020-07-23] MEDS: JUVEN PACKET PO SCH ×2 (07:24→21:00)
[2020-07-23] MEDS: INSULIN -REGULAR HUMAN 50 UNIT/0.5 ML ML SQ SCH ×5 (07:30→21:00)
[2020-07-23] MEDS: PANTOPRAZOLE 40MG TABLET PO SCH ×2 (07:57→16:30)
[2020-07-23] MEDS: predniSONE 10 MG TAB PO SCH ×2 (07:57→21:08)
[2020-07-23] MEDS: ENOXAPARIN 40 MG/0.4 ML SQ SCH ×2 (07:58→09:00)
--- NOTE | 2020-07-23 08:36 | P.PN ---
Subjective Date of Service: 07/23/20 Primary Care Provider: unknown Chief Complaint: Sweeney virus pneumonia Subjective: Other (Patient continues to improve. Not requiring any oxygen.) Physical Examination - Vital Signs Temperature: 97.5 F Blood Pressure: 130/92 Pulse: 91 Respirations: 19 Pulse Ox (%): 94 - Studies Medications List Reviewed: Yes Assessment & Plan Discharge Plan: Home Plan to discharge in: Greater than 2 days Physician Review Additional Text: Physical exam: GENERAL: Patient doing well at this time. No oxygen requirement needed VITAL SIGNS: Reviewed NECK: Supple. No carotid bruits. No lymphadenopathy or thyromegaly. LUNGS: Clear to auscultation. No crackles or wheezes are heard. HEART: Regular rate and rythem, no appreciable gallops, rubs, murmurs or extra heart sounds ABDOMEN: Soft, nontender, and nondistended. Positive bowel sounds. No hepatosplenomegaly was noted. EXTREMITIES: Without any cyanosis, clubbing, rash, lesions or peripheral edema. NEUROLOGIC: The patient is oriented to person, place and time. Strength and sensation are grossly intact. Face is symmetric. SKIN: Normal color, turgor and temperature. No ulcerations or rashes noted. Impression: Acute respiratory failure secondary to severe acute respiratory syndrome related to COVID-19 pneumonia Diabetes mellitus type 2 with hyperglycemia Acute on chronic renal failure stage IV with hypernatremia/metabolic acidosis/hyperkalemia Acute on chronic anemia Diarrhea without evidence of C. difficile colitis Mild protein malnutrition GERD with moderate hiatal hernia Fatty liver Plan: Acute respiratory failure secondary to severe acute respiratory syndrome related to COVID-19 pneumonia: Patient doing well at this time. No oxygen requirement needed at this time. Continue with physical therapy to ambulate. Patient will need to continue with incentive spirometer, proning, and ambulation until she is able to be discharged. Patient does not have any resources for skilled placement or home health. Medications reviewed. Continue to monitor closely. Anticipate improvement over the next 3 to 5 days. Diabetes mellitus type 2 with hyperglycemia: Patient on Lantus. Continue to adjust insulin therapy for better control. Accu-Cheks in place. Acute on chronic renal failure stage IV with hypernatremia/metabolic acidosis/hyperkalemia: Patient overall stable. Continue with nephrology vera mmendations. Acute on chronic anemia: Hemoglobin stable. Patient has received 3 units of blood during her stay. Maintain hemoglobin above 7.5. Diarrhea without evidence of C. difficile colitis: Stable. C. difficile negative. Mild protein malnutrition: Continue with supplementation. GERD with moderate hiatal hernia: Continue with medication Fatty liver: Continue with plan above Code Status: Full Code DVT prophylaxis: Lovenox Advanced Care Planning-30 minutes: Plan of care for the patient's discharge was discussed in detail with the patient. Patient does not have any resources for inpatient rehab versus skilled versus home health. Will need to continue with physical therapy until the patient is able to ambulate appropriately and discharged safely. Time Spent Managing Pts Care (In Minutes): 55
[2020-07-23] MEDS: ACETAMINOPHEN 500 MG TAB PO PRN (08:55)
[2020-07-23] MEDS: INSULIN GLARGINE 100 UNITS/ML SQ SCH (21:00)
[2020-07-24 05:06] LABS: Basophils % 0.6 % (0-1.3); Lymphocytes % 11.4 % (15.3-44.8); MPV 7.5 fL (7.6-11.3); RBC Red Blood Cell Count 3.23 M/uL (3.86-4.86)
[2020-07-24 06:51] LABS: C-Reactive Protein 19.9 mg/L (<3.00); Magnesium 1.9 mg/dL (1.8-2.4); Potassium 4.5 mmol/L (3.5-5.1)
[2020-07-24] MEDS: ENSURE HIGH PROTEIN 237 ML CAN PO SCH ×2 (08:13→20:57)
[2020-07-24] MEDS: INSULIN -REGULAR HUMAN 50 UNIT/0.5 ML ML SQ SCH ×4 (08:13→20:58)
[2020-07-24] MEDS: ENOXAPARIN 40 MG/0.4 ML SQ SCH (08:13)
[2020-07-24] MEDS: predniSONE 10 MG TAB PO SCH ×2 (08:14→20:57)
[2020-07-24] MEDS: PANTOPRAZOLE 40MG TABLET PO SCH ×2 (08:14→16:57)
--- NOTE | 2020-07-24 08:32 | P.PN ---
Subjective Date of Service: 07/24/20 Primary Care Provider: unknown Chief Complaint: Sweeney virus pneumonia Subjective: Doing well Physical Examination - Vital Signs Temperature: 98.1 F Blood Pressure: 120/78 Pulse: 77 Respirations: 16 Pulse Ox (%): 95 - Studies Medications List Reviewed: Yes Assessment & Plan Discharge Plan: Home Plan to discharge in: 48 Hours Physician Review Additional Text: Physical exam: GENERAL: Patient doing well at this time. Currently on 2 Liters. VITAL SIGNS: Reviewed NECK: Supple. No carotid bruits. No lymphadenopathy or thyromegaly. LUNGS: Clear to auscultation. No crackles or wheezes are heard. HEART: Regular rate and rythem, no appreciable gallops, rubs, murmurs or extra heart sounds ABDOMEN: Soft, nontender, and nondistended. Positive bowel sounds. No hepatosplenomegaly was noted. EXTREMITIES: Without any cyanosis, clubbing, rash, lesions or peripheral edema. NEUROLOGIC: The patient is oriented to person, place and time. Strength and sensation are grossly intact. Face is symmetric. SKIN: Normal color, turgor and temperature. No ulcerations or rashes noted. Impression: Acute respiratory failure secondary to severe acute respiratory syndrome related to COVID-19 pneumonia Diabetes mellitus type 2 with hyperglycemia Acute on chronic renal failure stage IV with hypernatremia/metabolic acidosis/hyperkalemia Acute on chronic anemia Diarrhea without evidence of C. difficile colitis Mild protein malnutrition GERD with moderate hiatal hernia Fatty liver Plan: Acute respiratory failure secondary to severe acute respiratory syndrome related to COVID-19 pneumonia: Patient encouraged to ambulate and eat. If she is able to ambulate and eat appropriately then will consider discharge in the next 1 to 2 days. Spoke with family concerning her progress. Patient may still require oxygen at discharge. Will check with nursing and respiratory. Family reports patient is to get insurance on August 13. Will check to see if the patient can get outpatient physical therapy which they can pay and eventually transition to insurance pain for physical therapy. Continue to monitor closely. Anticipate improvement over the next 1 to 2 days with possible discharge. Diabetes mellitus type 2 with hyperglycemia: A1c was 9.6. Patient on Lantus. Continue to adjust insulin therapy for better control. Accu-Cheks in place. Acute on chronic renal failure stage IV with hypernatremia/metabolic acidosis/hyperkalemia: Patient overall stable. Continue with nephrology recommendations. Acute on chronic anemia: Hemoglobin stable. Patient has received 3 units of blood during her stay. Maintain hemoglobin above 7.5. Diarrhea without evidence of C. difficile colitis: Stable. C. difficile negative. Mild protein malnutrition: Continue with supplementation. GERD with moderate hiatal hernia: Continue with medication Fatty liver: Continue with plan above Code Status: Full Code DVT prophylaxis: Lovenox Advanced Care Planning-30 minutes: Plan of care for the patient's discharge was discussed in detail with the patient. Patient does not have any resources for inpatient rehab versus skilled versus home health. Family is requesting physical therapy as an outpatient initially to be paid by them then after August 13 she will have insurance. Physical therapy as an outpatient can be continued thereafter. Time Spent Managing Pts Care (In Minutes): 55
[2020-07-24] MEDS: JUVEN PACKET PO SCH ×2 (09:00→20:58)
[2020-07-24] MEDS: INSULIN GLARGINE 100 UNITS/ML SQ SCH (20:57)
[2020-07-25 05:27] LABS: Absolute Lymphocytes (CBC) 1.5 K/uL (0.7-4.9); Basophils % 0.4 % (0-1.3); Hematocrit 28.4 % (36.0-45.0); Lymphocytes % 14.5 % (15.3-44.8); MPV 7.6 fL (7.6-11.3); RBC Red Blood Cell Count 3.21 M/uL (3.86-4.86)
[2020-07-25 05:40] VITALS: BMI 34.0
[2020-07-25 05:42] LABS: C-Reactive Protein 16.1 mg/L (<3.00); Ferritin 137.7 ng/mL (8-388); Magnesium 1.8 mg/dL (1.8-2.4); Potassium 4.2 mmol/L (3.5-5.1)
[2020-07-25] MEDS: INSULIN -REGULAR HUMAN 50 UNIT/0.5 ML ML SQ SCH ×4 (07:30→20:26)
[2020-07-25] MEDS: PANTOPRAZOLE 40MG TABLET PO SCH ×2 (10:07→17:31)
[2020-07-25] MEDS: ACETAMINOPHEN 500 MG TAB PO PRN ×2 (10:07→20:27)
[2020-07-25] MEDS: ENOXAPARIN 40 MG/0.4 ML SQ SCH (10:08)
[2020-07-25] MEDS: JUVEN PACKET PO SCH ×2 (10:08→21:00)
[2020-07-25] MEDS: predniSONE 10 MG TAB PO SCH ×2 (10:08→20:27)
[2020-07-25] MEDS: ENSURE HIGH PROTEIN 237 ML CAN PO SCH ×2 (10:08→21:00)
--- NOTE | 2020-07-25 14:54 | P.PN ---
Subjective Date of Service: 07/25/20 Primary Care Provider: unknown Chief Complaint: Sweeney virus pneumonia Subjective: Improving, Doing well Physical Examination - Vital Signs Temperature: 98.3 F Blood Pressure: 129/74 Pulse: 97 Respirations: 16 Pulse Ox (%): 95 - Studies Medications List Reviewed: Yes Assessment & Plan Discharge Plan: Home Plan to discharge in: 24 Hours Physician Review Additional Text: Physical exam: GENERAL: Patient on room air. Patient doing well at this time. VITAL SIGNS: Reviewed NECK: Supple. No carotid bruits. No lymphadenopathy or thyromegaly. LUNGS: Clear to auscultation. No crackles or wheezes are heard. HEART: Vital signs stable. ABDOMEN: No abdominal complaints noted EXTREMITIES: Without any cyanosis, clubbing, rash, lesions or peripheral edema. NEUROLOGIC: The patient is oriented to person, place and time. Strength and sensation are grossly intact. Face is symmetric. SKIN: Normal color, turgor and temperature. No ulcerations or rashes noted. Impression: Acute respiratory failure secondary to severe acute respiratory syndrome related to COVID-19 pneumonia Diabetes mellitus type 2 with hyperglycemia Acute on chronic renal failure stage IV with hypernatremia/metabolic acidosis/hyperkalemia Acute on chronic anemia Diarrhea without evidence of C. difficile colitis Mild protein malnutrition GERD with moderate hiatal hernia Fatty liver Plan: Acute respiratory failure secondary to severe acute respiratory syndrome related to COVID-19 pneumonia: Patient continues to do well. Encourage ambulation, and oral intake. Continue physical therapy up to 3 times a day. Once physical therapy deems the patient safe to go home then will plan for discharge. Anticipate discharge in the next 1 to 2 days. Patient no longer requiring oxygen. Continue to encourage ambulation. We will continue to assess. Diabetes mellitus type 2 with hyperglycemia: A1c was 9.6. Patient on Lantus. Continue to adjust insulin therapy for better control. Accu-Cheks in place. Acute on chronic renal failure stage IV with hypernatremia/metabolic acidosis/hyperkalemia: Patient overall stable. Continue with nephrology recommendations. Acute on chronic anemia: Hemoglobin stable. Patient has received 3 units of blood during her stay. Maintain hemoglobin above 7.5. Diarrhea without evidence of C. difficile colitis: Stable. C. difficile negative. Mild protein malnutrition: Continue with supplementation. GERD with moderate hiatal hernia: Continue with medication Fatty liver: Continue with plan above Code Status: Full Code DVT prophylaxis: Lovenox Advanced Care Planning-30 minutes: Plan of care for the patient's discharge was discussed in detail with the patient. Patient does not have any resources for inpatient rehab, skilled placement, or home health. Family is requesting physical therapy as an outpatient initially to be paid by them then after August 13 she will have insurance. Physical therapy as an outpatient can be continued thereafter. Time Spent Managing Pts Care (In Minutes): 55
[2020-07-25] MEDS: INSULIN GLARGINE 100 UNITS/ML SQ SCH (20:26)
[2020-07-26 06:18] LABS: C-Reactive Protein 14.3 mg/L (<3.00); Ferritin 134.6 ng/mL (8-388); Magnesium 1.8 mg/dL (1.8-2.4); Potassium 4.1 mmol/L (3.5-5.1)
[2020-07-26 06:23] VITALS: O2SAT 97
[2020-07-26] MEDS: INSULIN -REGULAR HUMAN 50 UNIT/0.5 ML ML SQ SCH ×3 (07:30→16:30)
[2020-07-26] MEDS: ENSURE HIGH PROTEIN 237 ML CAN PO SCH (09:00)
[2020-07-26] MEDS ORDERED: MAGNESIUM SULFATE 1 gm IVPB 1 GM/100 ML BAG IV ONE (09:00)
[2020-07-26] MEDS: JUVEN PACKET PO SCH (09:00)
[2020-07-26] MEDS: PANTOPRAZOLE 40MG TABLET PO SCH ×2 (10:29→16:30)
[2020-07-26] MEDS: ENOXAPARIN 40 MG/0.4 ML SQ SCH (10:29)
[2020-07-26] MEDS: predniSONE 10 MG TAB PO SCH (10:29)
--- NOTE | 2020-07-26 14:16 | P.DS ---
Admission Date: 07/02/20 Discharge Date: 07/26/20 Primary Care Provider: unknown Disposition: ROUTINE DISCHARGE Discharge Condition: GOOD Reason for Admission: Sweeney virus pneumonia Consultations: Pulmonary-Dr. Ball Procedures: COVID: Positive CT Scan : COMPARISON: Chest For Pe Angio dated 01/09/2019 TECHNIQUE: CT angiogram of the pulmonary arteries was performed with MIP. All CT scans are performed using dose optimization technique as appropriate and may include automated exposure control or mA/KV adjustment according to patient size. FINDINGS: No evidence of pulmonary thromboembolism. No acute aortic finding demonstrated. Extensive interstitial and alveolar lung opacities are present bilaterally, greatest in the upper lobes, likely representing pneumonia. No significant pericardial or pleural fluid. No concerning bony finding. Moderate axial hiatal hernia. IMPRESSION: No evidence of pulmonary thromboembolism. Extensive interstitial and alveolar lung opacities bilaterally compatible with COVID-[address] scan: FINDINGS: Mild moderate bibasilar lung opacities are present. Diffuse fatty liver is seen. Moderate axial hiatal hernia. The spleen, pancreas, adrenal glands are within normal limits. Nonobstructing bilateral renal calculi. No bowel obstruction, free air, free fluid or abscess. Moderate stool is retained in the colon. The appendix is normal. No evidence of significant lymphadenopathy. No suspicious bony findings. IMPRESSION: Bilateral nephrolithiasis without hydronephrosis. Diffuse fatty liver. Moderate hiatal hernia. Medical Problem List: Acute respiratory failure secondary to severe acute respiratory syndrome related to COVID-19 pneumonia Diabetes mellitus type 2 with hyperglycemia Acute on chronic renal failure stage IV with hypernatremia/metabolic acidosis/hyperkalemia Acute on chronic anemia Diarrhea without evidence of C. difficile colitis Mild protein malnutrition GERD with moderate hiatal hernia Fatty liver Hyperlipidemia Depression Brief History of Present Illness: 59-year-old female with hx of COVID 19 disease diagnosed 5 dys ago who came back to the ED for evaluation due to worsening sob and generalized weakness. she had c/o bodyaches and chst discomfort. she denied any diarrhea, fever, chills, rigor, n/v but she feels very poor. CXR done in the ED showed viral pneumonia pattern with patchy opacifications on all lung harvey. Patient with CT findings of Covid pneumonia. Patient admitted for further evaluation and treatment. Hospital Course: Patient presented with dyspnea secondary to acute respiratory failure related to bilateral Covid pneumonia. Patient was admitted for further evaluation and treatment. Her condition worsened. Patient was seen and evaluated by pulmonology. Patient required intubation. She was eventually weaned off. Patient has done well and has been able to get off oxygen. At discharge she has been able to work with physical therapy. Fall precautions in place. At discharge patient will continue with prednisone 10 mg 1 pill twice daily for 7 days then 1 pill once daily for 7 days. Patient will also continue with aspirin 81 mg daily. Patient will follow up with pulmonology in 1 week to [place] hospitalization and continue her care. Patient will continue with Covid 19 guidelines on isolation. Patient recommended to continue proning, handwashing, social distancing and facemask use. Recommend follow-up with her PCP to further monitor and address her condition. At discharge she will continue with physical therapy recommendations. Patient would benefit with outpatient physical therapy. Social work provided information on this. Patient with diabetes mellitus type 2 with hyperglycemia. Hemoglobin A1c 9.6. Patient was initiated on insulin therapy due to her elevated A1c. Patient has done well with her current medication. At discharge the patient will continue with Lantus 30 units subcu at bedtime. Recommend to maintain blood sugars less than 140 fasting and less than 200 after meals. Recommend to monitor blood sugars at least twice daily. Recommend follow-up with her PCP to further monitor and adjust medication. If her blood sugars remain above 200 she may increase her Lantus for better control. Recommend follow-up with her PCP within 1 week to monitor her progress. Recommend to recheck hemoglobin A1c in 3 months to monitor her progress. PCP may consider adjusting her medication and switch to oral if her blood sugars are better controlled. Patient had acute on chronic renal failure with metabolic acidosis, hypernatremia and hyperkalemia. Nephrology was consulted. This resolved. Renal function back to baseline. Recommend to recheck labBMP in 1 to 2 weeks to monitor her progress. Patient with GERD and moderate hiatal hernia. At discharge she may continue with Pepcid [id number] 20 mg 1 pill twice daily. Education on GERD and hiatal hernia addressed. Patient with history of depression. At discharge she may continue with Lexapro 10 mg daily. Recommend follow-up with her PCP to further monitor and adjust. Patient with history of hyperlipidemia. At discharge she may continue with Zocor 20 mg daily. Recommend to recheck fasting lipid panel in 4 to 6 weeks to monitor her progress. Further adjustment in medication can be done by her PCP. Patient with fatty liver. Education provided. Patient with acute on chronic anemia. Patient required blood transfusion during her stay. Hemoglobin has maintained above 7.5. Recommend to recheck labCBC in 4 to 6 weeks to monitor her progress. Vital Signs/Physical Exam: Temp Pulse Resp BP Pulse Ox 97.8 F 95 H 22 H 128/82 97 07/26/20 08:00 07/26/20 07:00 07/26/20 07:00 07/26/20 07:00 07/26/20 07:00 General: Alert, In no apparent distress, Oriented x3, Cooperative HEENT: Atraumatic Neck: Supple Respiratory: Clear to auscultation bilaterally, Normal air movement Cardiovascular: Normal pulses, Regular rate/rhythm Gastrointestinal: Normal bowel sounds, Soft and benign, Non-distended, No tenderness, No masses, No rebound, No guarding Musculoskeletal: No erythema, No tenderness, No warmth Integumentary: No tenderness/swelling Neurological: Normal speech, Normal strength at 5/5 x4 extr, Normal tone, Normal affect Laboratory Data at Discharge: WBC 10.40 K/uL (4.3-10.9) D 07/25/20 05:00 Hgb 9.8 g/dL (12.0-15.0) L 07/25/20 05:00 Hct 28.4 % (36.0-45.0) L 07/25/20 05:00 Plt Count 269 K/uL (152-406) 07/25/20 05:00 PT 12.9 SECONDS (9.5-12.5) H 07/05/20 07:50 INR 1.12 07/05/20 07:50 APTT 30.5 SECONDS (24.3-36.9) 07/05/20 07:50 Sodium 145 mmol/L (136-145) 07/26/20 04:12 Potassium 4.1 mmol/L (3.5-5.1) 07/26/20 04:12 BUN 26 mg/dL (7-18) H 07/26/20 04:12 Creatinine 0.77 mg/dL (0.55-1.3) 07/26/20 04:12 Glucose 86 mg/dL (74-106) 07/26/20 04:12 Uric Acid 5.0 mg/dL (2.6-6.0) 07/10/20 04:00 Phosphorus 3.9 mg/dL (2.5-4.9) 07/21/20 04:30 Magnesium 1.8 mg/dL (1.8-2.4) 07/26/20 04:12 Total Bilirubin 0.3 mg/dL (0.2-1.0) 07/10/20 04:00 AST 17 U/L (15-37) 07/10/20 04:00 ALT 43 U/L (12-78) 07/10/20 04:00 Alkaline Phosphatase 123 U/L (45-117) H 07/10/20 04:00 Home Medications: Escitalopram [Lexapro*] 10 mg PO DAILY 07/02/20 Simvastatin 20 mg PO DAILY 07/02/20 Aspirin [Aspirin EC 81 MG] 81 mg PO DAILY #30 tablet. 07/26/20 Benzonatate [Tessalon Perle*] 100 mg PO TID PRN #10 cap 07/26/20 Famotidine [Pepcid] 20 mg PO BID #60 tab 07/26/20 Insulin Glargine Human [Lantus*] 30 units SQ BEDTIME #1 vial 07/26/20 predniSONE [Deltasone*] 10 mg PO SEECOM #21 tab 07/26/20 New Medications: Aspirin [Aspirin EC 81 MG] 81 mg PO DAILY #30 tablet. predniSONE [Deltasone*] 10 mg PO SEECOM #21 tab Insulin Glargine Human [Lantus*] 30 units SQ BEDTIME #1 vial Famotidine [Pepcid] 20 mg PO BID #60 tab Benzonatate [Tessalon Perle*] 100 mg PO TID PRN #10 cap PRN Reason: Cough Physician Discharge Instructions: Patient presented with dyspnea secondary to acute respiratory failure related to bilateral Covid pneumonia. Patient was admitted for further evaluation and treatment. Her condition worsened. Patient was seen and evaluated by pulmonology. Patient required intubation. She was eventually weaned off. Patient has done well and has been able to get off oxygen. At discharge she has been able to work with physical therapy. Fall precautions in place. At discharge patient will continue with prednisone 10 mg 1 pill twice daily for 7 days then 1 pill once daily for 7 days. Patient will also continue with aspirin 81 mg daily. Patient will follow up with pulmonology in 1 week to [place] hospitalization and continue her care. Patient will continue with Covid 19 guidelines on isolation. Patient recommended to continue proning, handwashing, social distancing and facemask use. Recommend follow-up with her PCP to further monitor and address her condition. At discharge she will continue with physical therapy recommendations. Patient would benefit with outpatient physical therapy. Social work provided information on this. Patient with diabetes mellitus type 2 with hyperglycemia. Hemoglobin A1c 9.6. Patient was initiated on insulin therapy due to her elevated A1c. Patient has done well with her current medication. At discharge the patient will continue with Lantus 30 units subcu at bedtime. Recommend to maintain blood sugars less than 140 fasting and less than 200 after meals. Recommend to monitor blood sugars at least twice daily. Recommend follow-up with her PCP to further lissette tor and adjust medication. If her blood sugars remain above 200 she may increase her Lantus for better control. Recommend follow-up with her PCP within 1 week to monitor her progress. Recommend to recheck hemoglobin A1c in 3 months to monitor her progress. PCP may consider adjusting her medication and switch to oral if her blood sugars are better controlled. Patient had acute on chronic renal failure with metabolic acidosis, hypernatremia and hyperkalemia. Nephrology was consulted. This resolved. Renal function back to baseline. Recommend to recheck labBMP in 1 to 2 weeks to monitor her progress. Patient with GERD and moderate hiatal hernia. At discharge she may continue with Pepcid [id number] 20 mg 1 pill twice daily. Education on GERD and hiatal hernia addressed. Patient with history of depression. At discharge she may continue with Lexapro 10 mg daily. Recommend follow-up with her PCP to further monitor and adjust. Patient with history of hyperlipidemia. At discharge she may continue with Zocor 20 mg daily. Recommend to recheck fasting lipid panel in 4 to 6 weeks to monitor her progress. Further adjustment in medication can be done by her PCP. Patient with fatty liver. Education provided. Diet: ADA Activity: Fall precautions Followup: OOT,OOT [Primary Care Provider] - Time spent managing pt's care (in minutes): 55
[2020-07-26 20:07] VITALS: BP 122/89; TEMP 98.4
== END 2020-07-26 17:00 | disposition home or self-care (01) | DRG 207 ==
LOC: ER 09:11 → ERHOLD 15:07 → 4TH 15:49 → 3RD-ICU 07-04 02:30
PROVIDERS: ADMIT Internal Medicine Nephrology; ATTEND Family Medicine
PROC: 5A09357 Assistance with Respiratory Ventilation, Less than 24 Consecutive Hours, Continuous Positive Airway Pressure (ICD-10-PCS; 2020-07-03)
PROC: 5A1955Z Respiratory Ventilation, Greater than 96 Consecutive Hours (ICD-10-PCS; principal; 2020-07-04)
PROC: 0BH17EZ Insertion of Endotracheal Airway into Trachea, Via Natural or Artificial Opening (ICD-10-PCS; 2020-07-04)
PROC: XW033E5 Introduction of Remdesivir Anti-infective into Peripheral Vein, Percutaneous Approach, New Technology Group 5 (ICD-10-PCS; 2020-07-04)
PROC: 5A12012 Performance of Cardiac Output, Single, Manual (ICD-10-PCS; 2020-07-04)
PROC: 30233N1 Transfusion of Nonautologous Red Blood Cells into Peripheral Vein, Percutaneous Approach (ICD-10-PCS; 2020-07-10)
PROC: 02HV33Z Insertion of Infusion Device into Superior Vena Cava, Percutaneous Approach (ICD-10-PCS; 2020-07-15)
DX: U07.1 COVID-19 (principal); J12.82 Pneumonia due to coronavirus disease 2019; J96.01 Acute respiratory failure with hypoxia; K29.71 Gastritis, unspecified, with bleeding; E87.1 Hypo-osmolality and hyponatremia; N17.9 Acute kidney failure, unspecified; E87.2 Acidosis; E87.0 Hyperosmolality and hypernatremia; N18.4 Chronic kidney disease, stage 4 (severe); G72.81 Critical illness myopathy; E44.1 Mild protein-calorie malnutrition; K21.9 Gastro-esophageal reflux disease without esophagitis; E87.5 Hyperkalemia; D63.8 Anemia in other chronic diseases classified elsewhere; I12.9 Hypertensive chronic kidney disease with stage 1 through stage 4 chronic kidney disease, or unspecified chronic kidney disease; E11.22 Type 2 diabetes mellitus with diabetic chronic kidney disease; R79.1 Abnormal coagulation profile; R79.89 Other specified abnormal findings of blood chemistry; Z79.899 Other long term (current) drug therapy; Z78.1 Physical restraint status; E87.6 Hypokalemia; I95.9 Hypotension, unspecified; Z68.34 Body mass index [BMI] 34.0-34.9, adult; E88.09 Other disorders of plasma-protein metabolism, not elsewhere classified; E11.65 Type 2 diabetes mellitus with hyperglycemia; R19.7 Diarrhea, unspecified; K44.9 Diaphragmatic hernia without obstruction or gangrene; K76.0 Fatty (change of) liver, not elsewhere classified; F32.9 Major depressive disorder, single episode, unspecified; Z79.52 Long term (current) use of systemic steroids; Z79.4 Long term (current) use of insulin; Z79.82 Long term (current) use of aspirin
CPT/HCPCS: 36415; 36430; 36569; 71045; 71275; 74177; 80048; 80053; 80076; 80202; 81001; 82248; 82274; 82550; 82728; 82805; 82947; 83036; 83540; 83605; 83735; 83880; 84100; 84132; 84145; 84466; 84550; 85014; 85018; 85025; 85379; 85610; 85730; 86140; 86850; 86900; 86901; 87040; 87086; 87088; 87324; 87449; 94002; 94003; 94640; 94660; 96361; 96374; 96375; 97110; 97112; 97161; 97530; 99285; C9113; J0330; J0610; J1100; J1170; J1650; J1815; J1940; J2250; J2405; J2543; J2704; J2920; J2930; J3010; J3370; J3411; J3475; J7030; J7040; J7050; J7512; P9016; P9047; Q9967; U0003